=== PATIENT | female | born 1940 | race Caucasian/White ===

== ENCOUNTER 2020-07-09 18:53 | Emergency (ER) | payer MEDICARE, SELFPAY ==
--- NOTE | 2020-07-09 19:05 | PC.NURSE ---
pt seen leaving ed with family member before triage
== END 2020-07-09 19:05 | disposition left against medical advice (07) ==
LOC: ANHED 19:13
DX: Z53.21 Procedure and treatment not carried out due to patient leaving prior to being seen by health care provider (principal)
CPT/HCPCS: 99199

== ENCOUNTER 2021-08-09 18:36 | Inpatient (IN) | payer MEDICARE, SELFPAY ==
--- NOTE | ~2021-08-09 | US_ITS ---
EXAMINATION: US carotid duplex BI DATE: 08/11/2021 10:48 INDICATION: Embolic brain infarcts. Encephalopathy with altered mental status including syncope and c onfusion. TECHNIQUE: Grayscale, color Doppler, and pulsed Doppler images of the cervical carotid arteries were obtained. The degree of vessel stenosis is placed in one of the following categories: normal, <50%, 5 0-69%, >=70% but less than near-occlusion, near-occlusion, or total occlusion. Note that percent sten osis relative to normal distal artery lumen diameter is indirectly measured from velocity measurement s as described by Hector, et al. Radiology 2003; 229:340-346. COMPARISON: None. FINDINGS: RIGHT: The right common carotid artery (CCA) peak systolic velocity (PSV) is 141 cm/s. The right internal ca rotid artery (ICA) PSV is 93 cm/s. The right ICA end-diastolic velocity (EDV) is 22 cm/s. The right I CA/CCA PSV ratio is 0.7. Grayscale and color Doppler images yield an estimate of <50% diameter reduct ion from plaque in the ICA. The external carotid artery (ECA) PSV is 253 cm/s. The right vertebral ar chhaya is not visualized and may be occluded with absent flow void on prior brain MR the right vertebra l artery at the level of C1-C2. LEFT: The left CCA PSV is 97 cm/s. The left ICA PSV is 286 cm/s. The left ICA EDV is 50 cm/s. The left ICA/ CCA PSV ratio is 2.9. Grayscale and color Doppler images yield an estimate of >=70% (but less than ne ar occlusion) diameter reduction from plaque in the ICA. The ECA PSV is 160 cm/s. There is antegrade flow in the left vertebral artery. IMPRESSION: 1. <50% stenosis in the right internal carotid artery. 2. >=70% (but less than near occlusion) stenosis in the left internal carotid artery. 3. No patent right vertebral artery identified on color Doppler with no discernible flow void on prio r brain MR and this is likely occluded. Reviewed, dictated and finalized at location A. IMPRESSION: 1. <50% stenosis in the right internal carotid artery. 2. >=70% (but less than near occlusion) stenosis in the left internal carotid a rtery. 3. No patent right vertebral artery identified on color Doppler with no discern ible flow void on prior brain MR and this is likely occluded.
--- NOTE | ~2021-08-09 | XR_ITS ---
EXAMINATION: XR chest 1V portable INDICATION: Pneumonia, shortness of breath TECHNIQUE: Portable AP chest at 0927 hours COMPARISON: 08/09/2021 FINDINGS: The lungs are free of acute opacities. There is no pleural effusion or pneumothorax. The ca rdiomediastinal silhouette is normal. Cranial migration of the humeral heads with respect to the cipriano oids likely reflects chronic rotator cuff tears. IMPRESSION: 1. No acute cardiopulmonary abnormality. Reviewed, dictated and finalized at location A.
--- NOTE | ~2021-08-09 | XR_ITS ---
EXAMINATION: XR chest 1V DATE: 08/09/2021 19:53 INDICATION: Syncope. Confusion. TECHNIQUE: A single frontal view of the chest was obtained. COMPARISON: Chest 2 views 07/14/2012 FINDINGS: The chest demonstrates clear lungs without pneumonia, pleural effusion, or pneumothorax. Th e heart size is normal. IMPRESSION: 1. No acute cardiopulmonary disease. Reviewed, dictated and finalized at location A.
--- NOTE | ~2021-08-09 | CT_ITS ---
EXAMINATION: CT abdomen pelvis wo con DATE: 08/13/2021 13:40 INDICATION: Colon cancer. TECHNIQUE: Computed tomography (CT) of the abdomen and pelvis was performed without intravenous contr ast. Automated exposure control and iterative reconstruction technique were employed. The dose-length product was 165.23 mGy-cm. COMPARISON: None. FINDINGS: The visualized portions of the lung bases demonstrate emphysema. There are small airspace o pacities in basilar right lower lobe. No pleural effusion. The heart size is normal. There are fernandes ry artery calcifications. No pericardial effusion. The liver and gallbladder are normal. Calcificatio ns in the spleen are consistent with old granulomatous disease. The pancreas and adrenal glands are n ormal. There is cortical thinning of the kidneys. There is a 2.8 cm cyst in right kidney. There is di verticulosis of the colon without evidence of diverticulitis. There are no dilated loops of bowel. Th e appendix is normal. There are no pathologically enlarged lymph nodes. There is no free intraperiton eal fluid. There is severe lumbar spondylosis. IMPRESSION: 1. No evidence of metastatic disease. 2. Small airspace opacities in basilar right lower lobe, consistent with mild atelectasis versus infl ammation/infection. 3. Emphysema. Reviewed, dictated and finalized at location A. IMPRESSION: 1. No evidence of metastatic disease. 2. Small airspace opacities in basilar right lower lobe, consistent with mild a telectasis versus inflammation/infection. 3. Emphysema.
--- NOTE | ~2021-08-09 | MR_ITS ---
EXAMINATION: MR brain/brain stem wo con DATE: 08/10/2021 14:18 INDICATION: Altered mental status. TECHNIQUE: Magnetic resonance imaging (MRI) of the brain and brainstem was performed without intraven ous contrast. Sequences included sagittal and axial T1-weighted FSE, axial diffusion-weighted FS EPI, axial T2*-weighted GRE, axial T2-weighted FLAIR Propeller, and axial T2-weighted Propeller. Apparent diffusion coefficient (ADC) maps were created. COMPARISON: Head CT 08/09/2021 FINDINGS: There are scattered areas of nonspecific increased T2-weighted signal intensity in the cere bral white matter. There is an old infarct involving the right basal ganglia and internal capsule. Th ere is an old infarct in left frontal lobe and left insula. There is an old infarct in left temporal lobe. There is no intracranial hemorrhage, acute infarction, or abnormal intracranial mass lesion. Th ere is expected dilatation of body of right lateral ventricle. There is mucosal thickening in right m axillary sinus. There are likely changes of right ocular lens replacement surgery. The mastoid air ce lls are normal. IMPRESSION: 1. 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 2. Stable moderate nonspecific cerebral white matter disease, which likely represents chronic small v essel ischemic disease. Reviewed, dictated and finalized at location A. IMPRESSION: 1. 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 2. Stable moderate nonspecific cerebral white matter disease, which likely repr esents chronic small vessel ischemic disease.
--- NOTE | ~2021-08-09 | CT_ITS ---
EXAMINATION: CT brain wo con DATE: 08/09/2021 19:52 INDICATION: Confusion. Syncope. TECHNIQUE: Computed tomography (CT) of the head was performed without intravenous contrast. The mA wa s adjusted according to patient size. Iterative reconstruction technique was employed. The dose-lengt h product was 681.00 mGy-cm. COMPARISON: None FINDINGS: Old infarcts involving the right basal ganglia and internal capsule. There are scattered ar eas of low attenuation in the cerebral white matter. Old infarcts involving the left frontal lobe and left insula. There is no intracranial hemorrhage, acute infarction, or abnormal intracranial mass le samuel. There is mild ex vacuo dilatation of right lateral ventricle. There is mucosal thickening in th e paranasal sinuses. There are likely changes of right ocular lens replacement surgery. The mastoid a ir cells are normal. IMPRESSION: 1. 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 2. Moderate nonspecific cerebral white matter disease, which likely represents chronic small vessel i schemic disease. Reviewed, dictated and finalized at location A. IMPRESSION: 1. 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 2. Moderate nonspecific cerebral white matter disease, which likely represents chronic small vessel ischemic disease.
--- NOTE | ~2021-08-09 | US_ITS ---
EXAMINATION: US renal BI DATE: 08/10/2021 15:02 INDICATION: Acute kidney injury TECHNIQUE: Multiple grayscale and Doppler ultrasound images of the kidneys were obtained. COMPARISON: None. FINDINGS: The right kidney measures 7.7 x 5.1 x 3.5 cm and contains multiple cysts measuring up to 3. 3 cm. The left kidney measures 7.5 x 3.3 x 3.9 cm and contains a 9 mm cyst. The kidneys demonstrate n ormal parenchymal echogenicity. There is no hydronephrosis. The bladder is normal. IMPRESSION: 1. Bilateral renal atrophy without acute findings. Reviewed, dictated and finalized at location A.
[2021-08-09 18:42] VITALS: BP 149/68; PULSE 72; RESP 12; TEMP 36.8; O2SAT 96
--- NOTE | 2021-08-09 18:47 | ECG_ITS ---
Measurements Intervals [place] Rate: 70 P: 85 [place]: 204 QRS: 46 QRSD: 82 T: 115 QT: 393 QTc: 425 Interpretive Statements SINUS RHYTHM MINIMAL Q WAVES- ANTEROLAT/INF LEADS BORDERLINE ST-T WAVE ABNORMALITY- ANTEROLAT/HIGH LAT LEADS BASELINE ARTIFACT- I, II, III, AVR, AVL, AVF, V1-V6 BORDERLINE ECG Electronically Signed On 08-09-2021 20:33:09 CDT by Kraig Madison D.O.
[2021-08-09 18:58] LABS: Basophils Absolute Auto 0.1 K/mm3 (0.0-0.1); Basophils Percent Auto 0.9 % (0.2-1.2); Eosinophils Absolute Auto 0.2 K/mm3 (0-0.3); Eosinophils Percent Auto 2.5 % (0-4.4); Hematocrit 24.1 % (37.0-47.0); Immature Granulocyte Absolute 0.03 K/mm3 (0.00-0.031); Immature Granulocyte Percent A 0.3 % (0-0.5); Lymphocytes Absolute Auto 0.77 K/mm3 (0.9-3.2); Lymphocytes Percent Auto 8.7 % (18.3-44.2); Mean Corpuscular Hemoglobin 26.1 pg (26-34); Mean Corpuscular Volume 89.9 fl (80-100); Mean Platelet Volume 10.4 fl (7.4-10.4); Monocytes Absolute Auto 0.4 K/mm3 (0.1-0.6); Monocytes Percent Auto 4.8 % (2.6-8.5); Neutrophils Absolute Auto 7.4 K/mm3 (1.3-6.7); Neutrophils Percent Auto 82.8 % (45.5-73.1); Platelet Count Result 254 k/mm3 (150-375); Red Blood Count 2.68 M/mm3 (4.2-5.4); Red Cell Distribution Width 14.6 % (11.5-14.5); White Blood Count 8.9 K/mm3 (4.5-10.0)
[2021-08-09 19:19] LABS: Anion Gap 9 mmol/L (8-16); Blood Urea Nitrogen 33 mg/dL (7-17); Calcium 8.8 mg/dL (8.4-10.2); Carbon Dioxide 20 mmol/L (22-30); Chloride 113 mmol/L (98-107); Estimated CRCL calculation 19 ml/min; Estimated Glomerular Filt Rate 26; Glucose 140 mg/dL (65-110); Potassium 4.8 mmol/L (3.4-5.0); Sodium 142 mmol/L (137-145)
[2021-08-09 19:42] VITALS: PULSE 71
[2021-08-09 20:36] LABS: Prothrombin Time 12.8 Seconds (11.1-14.7)
[2021-08-09 20:37] LABS: Partial Thromboplastin Time 28.8 SECONDS (22.3-36.8)
[2021-08-09 20:40] LABS: Alanine Aminotransferase 10 U/L (4-35); Albumin Level 4.1 g/dL (3.5-5.1); Alkaline Phosphatase 85 U/L (38-126); Aspartate Amino Transferase 19 U/L (14-36); Bilirubin,Total 0.4 mg/dL (0.2-1.3)
[2021-08-09 20:45] LABS: Add Urine Microscopic? YES; Appearance Urine Cloudy (Clear); Bilirubin Urine Negative (Negative); Blood Urine 3+ (Negative); Budding Yeast Urine Present /hpf; Color Urine Yellow (Yellow); Glucose Urine UA Negative (Negative); Ketones Urine Negative (Negative); Leukocyte Esterase Ur 2+ LEU/UL (Negative); Mucus Urine Rare /lpf; Nitrate Urine Negative (Negative); Protein Urine 2+ mg/dL (Negative); RBC Urine >75 /hpf (0-2); Specific Grav Ur 1.018 (1.001-1.035); Urobilinogen Urine Negative mg/dL (<2.0); WBC Clumps Urine Present /HPF; WBC Urine >75 /hpf
--- NOTE | 2021-08-09 20:48 | ED.SYNCOPE ---
HPI - Syncope General Chief Complaint: Syncope Stated Complaint: syncopal episode Time Seen by Provider: 08/09/21 19:02 Source: patient and RN notes reviewed Mode of arrival: EMS Limitations: other (poor historian) History of Present Illness HPI narrative: This is a 81 year old female who presents for evaluation of syncopal episode. Her son is present at bedside. He states they were eating when patient slumped over in her chair and she was unresponsive for 10 minutes. Patient does not remember the event but she states she was feeling lightheaded. Patient has not been seen by a doctor in 2 years and she is not taking any medication. Over last 6 months, she has had decreased appetite and 30 pound weight loss. She denies nausea, vomiting, abdominal pain, chest pain or shortness of breath. She has a chronic cough. Her son states she states he thinks her stools have been dark. Patient denies bloody stools or dark stools. She is unsure of her last bowel movement. Related Data Home Medications Medication Instructions Recorded Confirmed No Home Medications 08/09/21 08/09/21 Allergies Allergy/AdvReac Type Severity Reaction Status Date / Time lidocaine Allergy Unknown Unknown Verified 08/09/21 18:46 procaine Allergy Unknown Unknown Verified 08/09/21 18:46 Review of Systems Review of Systems: All systems reviewed & are unremarkable except as noted in HPI and below PMFSH Past Medical History Medical History (Updated 08/10/21 @ 07:09 by Elba Cardenas MD) CHF (congestive heart failure) COPD (chronic obstructive pulmonary disease) Hypertension Surgical History Surgical History (Updated 08/09/21 @ 20:53 by Elba Cardenas MD) Hx of cataract surgery Family History Family History (Updated 08/09/21 @ 23:51 by Anjali Almonte RN) Mother Diabetes mellitus Social History Social History Smoking status: Former smoker Alcohol intake: unknown Substance use: never Spiritual care concerns: No Exam Const: General: no acute distress and alert Nutritional Appearance: thin Other: appears dirty, oriented to person and place. She does not know year HENMT: Head: normocephalic and atraumatic Face and sinus: face symmetric Mouth: Yes Normal oral and palatal mucosa present, Yes lip normal, Yes oropharynx normal and Yes moist mucous membranes Eyes: EOM: EOMs intact bilaterally Resp: Effort & Inspection: normal respiratory effort, not labored, no retractions, not tachypneic and no use of accessory muscles Auscultation: wheezes expiratory wheezes Cardio: Rate: regular rate Rhythm: regular rhythm Heart sounds: no murmurs GI: GI Palp: Yes Soft to palpation, No Tenderness to palpation present (GI) and No Guarding due to palpation present (GI) Auscultation: normal bowel sounds Rectal Exam: heme positive stool Skin: General skin exam: normal color Rashes: no rashes Neuro: General: moves all extremities, no meningeal signs, no focal motor deficits and CN's II-XI intact bilaterally Speech: normal speech Extrem: General: normal to inspection Psych: Mental Status: mental status grossly normal Affect: normal affect Course Reevaluation(s) Reevaluation #1: PAtient has been found to have HEIDE and anemia. She reports 30 pound weight loss. Will obs for evaluation . Vitals are stable. Date: 08/09/21 Time: 21:30 Consultations Consultation #1: I discussed case with Dr. Grossman. Patient found to be anemia, disheveled and malnourished. She had guiac positive. She accepts pt to medical service. Date: 08/09/21 Time: 21:23 Vital Signs Vital signs: Vital Signs Temperature 98.3 F 08/09/21 18:42 Pulse Rate 72 08/09/21 18:42 Respiratory Rate 12 08/09/21 18:42 Blood Pressure 149/68 H 08/09/21 18:42 Pulse Oximetry 96 08/09/21 18:42 Temperature 96.7 F L 08/10/21 06:00 Pulse Rate 76 08/10/21 06:00 Respiratory Rate 18 08/10/21 06:00 Blood Pressure 145/85 H 08/10/21 06:00
[2021-08-09 21:01] VITALS: BP 142/90; PULSE 72; RESP 17; O2SAT 96
--- NOTE | 2021-08-09 21:01 | PC.NURSE ---
PT ASKED X3 TO DO ORTHOSTATIC BP, PLEASANTLY REFUSED.
--- NOTE | 2021-08-09 21:21 | PM.IMHP ---
H&P: HPI History of Present Illness Date/Time: 08/09/21 21:21 Chief Complaint: Syncope Narrative: This is a 81-year-old female with past medical history significant for COPD/emphysema, tobacco dependence patient used to smoke 2-3 packs of cigarettes daily currently down to 2 cigarettes a day, hypertension. Patient was brought to the emergency room by her son after they were sitting in the dinner table when she slumped over according to son she was unresponsive for roughly 10 minutes did not witness any jerky movements patient is awake and alert however to has no recollection of events. She keeps repeating that she wants to go home and denies any complaints at this time she knows that she is in the emergency room but does not know why she is day and S only oriented to person and place. According to son he has noticed a progressive decline of the patient she unkempt and disheveled, as per son she has her oral intake has been poor has had roughly a 30 lb weight loss in the last 3-6 months. Most of the history has been obtained from patient's son as patient is not aware of her current health affairs. Preliminary workup was significant for a hemoglobin of 7 a hematocrit of 24, urinalysis with numerous wbc's. Chest x-ray was clear, a CT of the head showed old infarcts. Review of Systems Review of Systems: ROS unobtainable: Yes unobtainable due to medical condition (Dementia) [facility] Past Medical History Medical History (Updated 08/10/21 @ 01:05 by Deb Grossman MD) CHF (congestive heart failure) COPD (chronic obstructive pulmonary disease) Hypertension Surgical History Surgical History (Updated 08/09/21 @ 20:53 by Elba Cardenas MD) Hx of cataract surgery Family History Family History (Updated 08/09/21 @ 23:51 by Anjali Almonte RN) Mother Diabetes mellitus Social History Social History Smoking status: Former smoker Alcohol intake: unknown Substance use: never Spiritual care concerns: No Meds Home Medications and Allergies Home Medications Medication Instructions Recorded Confirmed Type No Home Medications 08/09/21 08/09/21 History Allergies Allergy/AdvReac Type Severity Reaction Status Date / Time lidocaine Allergy Unknown Unknown Verified 08/09/21 18:46 procaine Allergy Unknown Unknown Verified 08/09/21 18:46 Vital Signs Vital Signs - 24 hr 08/09/21 18:42 08/09/21 19:42 08/09/21 21:01 Temperature 98.3 F Pulse Rate 72 71 72 Respiratory Rate 12 17 Blood Pressure 149/68 H 142/90 H Pulse Oximetry 96 96 Exam Narrative: Patient is sitting in [facility] Const: General: no acute distress, alert, awake, Physically active, ill appearing chronically, poor hygiene and other (Unkempt, disheveled.) Nutritional Appearance: cachectic Orientation/consciousness: oriented to person and oriented to place HENMT: Head: normal to inspection, normocephalic and atraumatic Ears: hearing grossly normal bilaterally General nose exam: Normal external nose present Face and sinus: normal facial exam Mouth: Yes Normal oral and palatal mucosa present Eyes: General: appearance normal, both eyes and all related structures Alignment and Position: alignment normal Sclera: sclerae normal Pupils: Equal, round and reactive pupils present EOM: EOMs intact bilaterally Neck: Neck: normal visual inspection, full ROM, no lymphadenopathy, supple and no JVD Thyroid: thyroid normal Lymphatic: no lymphadenopathy noted Resp: Effort & Inspection: normal respiratory effort and able to speak in complete sentences Auscultation: clear to auscultation bilaterally, no crackles, no rales, no rhonchi and no wheezes Cardio: Jugular venous distension: no JVD Rate: regular rate Rhythm: regular rhythm Heart sounds: S1 normal heart sound present and S2 normal heart sound present GI: Inspection: scaphoid GI Palp: Yes Soft to palpation, No Tenderness to palpation present (GI), No Guarding due to palpation present (GI) and
[2021-08-09 21:28] LABS: Iron 19 ug/dL (37-170)
[2021-08-09 21:37] LABS: Percent Iron Saturation 5 % (20-50)
[2021-08-09 21:39] LABS: Folic Acid 10.6 ng/mL (2.76->20)
[2021-08-09 22:18] VITALS: BP 148/79; PULSE 71; RESP 21; O2SAT 100
[2021-08-09 23:01] VITALS: BP 142/98; PULSE 76; RESP 16; O2SAT 99
[2021-08-09 23:25] VITALS: BP 190/62; PULSE 76; RESP 18; TEMP 36.2; O2SAT 90
--- NOTE | 2021-08-09 23:27 | PC.NURSE ---
This patient, Bridget Alaniz, was admitted to 3 [facility] Surg Room 305-02 @23:25. Patient/family oriented to hospital policies and general routines including ID bracelet, bed and alarms, visiting hours, pain management, procedures, bathroom and other care routines, personal items, smoking policy, room service/diet, and visiting hours. Information on how to activate the Rapid Response Team has been discussed. Patient/Family are encouraged to report perceived risks to care and to ask questions if they do not understand what they are told or what they should do.
[2021-08-09 23:35] VITALS: BMI 16.0
[2021-08-09 23:43] LABS: Transferrin 283 mg/dL (206-381)
[2021-08-10] VITALS (15 sets, daily range): BP systolic 136–182; BP diastolic 48–87; PULSE 60–84; RESP 12–18; TEMP 35.9–36.9; O2SAT 91–100; BMI 16.0
--- NOTE | 2021-08-10 | ECHO_ITS ---
Patient Info Name: Bridget Alaniz Age: 81 years : 1940 Gender: Female Ht: 64 in Wt: 132 lbs BSA: 1.65 m2 HR: 78 bpm BP: 145 / 85 mmHg Technical Quality: Fair Exam Date: 08/10/2021 4:26 PM Exam Location: [facility] Pulmonary Exam Room: 305 Patient Status: Inpatient Admit Date: 08/10/2021 Staff Ordering Physician: Deb Grossman MD Senior Partner: Vale Montilla RDCS Attending Provider: Kaur Enriquez PA-C Referring Physician: Ngoc BATES; Exam Type: CA echo doppler color flow Study Info Indications - renal failure Complete two-dimensional, color flow and Doppler transthoracic echocardiogram is performed. Summary 1. Complete two-dimensional, color flow and Doppler transthoracic echocardiogram is performed. 2. Left ventricular chamber dimension is normal. 3. Left ventricular systolic function is normal, estimated at 45-50%. 4. The left ventricular diastolic function is grade I diastolic dysfunction. 5. E/e' 17 is elevated. 6. Left atrial chamber dimension is moderately enlarged. 7. There is mild aortic valve sclerosis. 8. The mitral valve has mildly calcified annulus and mildly thickened mitral valve leaflets. 9. There is mild to moderate mitral valve regurgitation. 10. There is trace tricuspid valve regurgitation. 11. Mild pulmonary hypertension, estimated pulmonary arterial systolic pressure is 45 mmHg. Left Ventricle E/e' 17 is elevated. Left ventricular chamber dimension is normal. Left ventricular systolic function is normal, estimated at 45-50%. The left ventricular diastolic function is grade I diastolic dysfunction. Right Ventricle Right ventricular chamber dimension is normal. Right ventricular systolic function is normal. Left Atria Left atrial chamber dimension is moderately enlarged. Right Atria Right atrial chamber dimension is normal. Aortic Valve The aortic valve is trileaflet. There is mild aortic valve sclerosis. There is no aortic valve stenosis. There is no aortic valve regurgitation. Pulmonic Valve There is no pulmonic regurgitation. Mitral Valve The mitral valve has mildly calcified annulus and mildly thickened mitral valve leaflets. There is no mitral valve stenosis. There is mild to moderate mitral valve regurgitation. Tricuspid Valve There is trace tricuspid valve regurgitation. Mild pulmonary hypertension, estimated pulmonary arterial systolic pressure is 45 mmHg. Pericardium/Pleural There is no pericardial effusion. Inferior Vena Cava Normal inferior vena cava with >50% collapse upon inspiration consistent with normal right atrial pressure, 5 mmHg. Aorta The aortic root size at the sinus of Valsalva is normal. Left Ventricular Outflow Tract Name Value Normal LVOT 2D LVOT Diameter 2.0 cm LVOT Doppler LVOT Peak Gradient 4 mmHg LVOT Mean Gradient 3 mmHg LVOT VTI 27 cm LVOT VTI/AV VTI Ratio 1.0 LVOT Stroke Volume 80 ml LVOT CO 15.2
[2021-08-10 00:10] LABS: Ferritin 7.39 ng/mL (11.1-264)
[2021-08-10] MEDS: PERMETHRIN 1% LIQUID 59 ML BOTTLE 1 APPLIC TOPICAL (03:19)
[2021-08-10] MEDS: SODIUM CHLORIDE 0.9% IV 1,000 ML 125 ML IV CONT (03:20)
[2021-08-10 06:36] LABS: Basophils Absolute Auto 0.1 K/mm3 (0.0-0.1); Basophils Percent Auto 0.8 % (0.2-1.2); Eosinophils Absolute Auto 0.1 K/mm3 (0-0.3); Eosinophils Percent Auto 1.9 % (0-4.4); Hematocrit 22.1 % (37.0-47.0); Immature Granulocyte Absolute 0.03 K/mm3 (0.00-0.031); Immature Granulocyte Percent A 0.4 % (0-0.5); Lymphocytes Absolute Auto 0.76 K/mm3 (0.9-3.2); Lymphocytes Percent Auto 10.2 % (18.3-44.2); Mean Corpuscular HGB Conc 29.4 g/dl (32-36); Mean Corpuscular Hemoglobin 25.9 pg (26-34); Mean Platelet Volume 10.8 fl (7.4-10.4); Monocytes Absolute Auto 0.4 K/mm3 (0.1-0.6); Monocytes Percent Auto 5.4 % (2.6-8.5); Neutrophils Absolute Auto 6.1 K/mm3 (1.3-6.7); Neutrophils Percent Auto 81.3 % (45.5-73.1); Platelet Count Result 244 k/mm3 (150-375); Red Blood Count 2.51 M/mm3 (4.2-5.4); Red Cell Distribution Width 14.5 % (11.5-14.5); White Blood Count 7.5 K/mm3 (4.5-10.0)
[2021-08-10 06:46] LABS: Alanine Aminotransferase 8 U/L (4-35); Albumin Level 3.8 g/dL (3.5-5.1); Alkaline Phosphatase 85 U/L (38-126); Anion Gap 10 mmol/L (8-16); Aspartate Amino Transferase 17 U/L (14-36); Bilirubin,Total 0.2 mg/dL (0.2-1.3); Blood Urea Nitrogen 32 mg/dL (7-17); Calcium 8.7 mg/dL (8.4-10.2); Carbon Dioxide 18 mmol/L (22-30); Chloride 113 mmol/L (98-107); Estimated CRCL calculation 14 ml/min; Estimated Glomerular Filt Rate 24; Glucose 97 mg/dL (65-110); Potassium 5.1 mmol/L (3.4-5.0); Sodium 141 mmol/L (137-145)
[2021-08-10 07:43] LABS: Hemoglobin 6.5 g/dL (12.0-15.0)
[2021-08-10 07:50] LABS: Platelet Estimate Adequate (Adequate)
[2021-08-10 07:54] LABS: Hypochromasia 2+ (NORMAL)
[2021-08-10 08:54] LABS: Thyroid Stimulating Hormone 0.639 uIU/mL (0.465-4.680)
[2021-08-10 10:28] LABS: Rapid Plasma Reagin Non-Reactive (NonReactive)
[2021-08-10] MEDS: MEMANTINE 10 MG TABLET PO ×2 (11:07→20:12)
[2021-08-10] MEDS: PANTOPRAZOLE SODIUM IV 40 MG VIAL IV PUSH (11:08)
--- NOTE | 2021-08-10 11:24 | WPDGICN ---
Assessment and Plan Assessment and plan (1) Anemia: Code(s): D64.9 - Anemia, unspecified Status: Acute Assessment and Plan: she has a normocytic anemia although her stool Hemoccult was positive, raising the suspicion of chronic gastrointestinal blood loss. I discussed EGD and colonoscopy with her. She will be prepped and scheduled for colonoscopy and EGD to be done tomorrow (2) Tobacco dependence: Code(s): F17.200 - Nicotine dependence, unspecified, uncomplicated Status: Acute Assessment and Plan: although she has COPD by history she does not appear short of breath at this time (3) Weight loss: Code(s): R63.4 - Abnormal weight loss Status: Acute Assessment and Plan: as mentioned, she denies any significant drop in her appetite or dysphagia but is aware that she has been losing weight, expresses concern about that. I told her that we would investigate that, 1st with endoscopy as discussed GI Consult Note Consult date/time: 08/10/21 11:24 HPI: Bridget Alaniz is a 81 year old female who was brought to the emergency room because she had slumped over when eating dinner last night and for about 10 minutes apparently was unresponsive. She has a history of COPD having smoked 2-3 packs of cigarettes per day for most of her life. She was found to be markedly anemic with a hemoglobin of 7. Is 6.5 today. She denies seen blood her stools are having black or tarry stools. She denies diarrhea or any change in bowel habits. She admits that she has had a poor appetite and is concerned that she has lost weight. Apparently she has lost about 30 lb in the last several months. She denies vomiting or dysphagia. She has a diagnosis of dementia but her history seems fairly consistent with what is in the chart. She thinks that she had a colonoscopy many many years ago at [facility] but I cannot find it in our system. From what I can tell she does not take any anti-inflammatory medications. Her INR is normal. No home prescription medications are listed. Review of Systems Review of Systems: All systems reviewed & are unremarkable except as noted in HPI and below PMFSH Past Medical History Medical History CHF (congestive heart failure) COPD (chronic obstructive pulmonary disease) Hypertension Surgical History Surgical History Hx of cataract surgery Family History Family History Mother Diabetes mellitus Social History Social History Smoking status: Former smoker Alcohol intake: unknown Substance use: never Spiritual care concerns: No Meds Home Medications and Allergies Home Medications Medication Instructions Recorded Confirmed Type No Home Medications 08/09/21 08/09/21 History Allergies Allergy/AdvReac Type Severity Reaction Status Date / Time lidocaine Allergy Unknown Unknown Verified 08/09/21 18:46 procaine Allergy Unknown Unknown Verified 08/09/21 18:46 Vital Signs Vital Signs - 24 hr 08/09/21 18:42 08/09/21 19:42 08/09/21 21:01 Temperature 36.8 C Pulse Rate 72 71 72 Respiratory Rate 12 17 Blood Pressure 149/68 H 142/90 H Pulse Oximetry 96 96 08/09/21 22:18 08/09/21 23:01 08/09/21 23:25 Temperature 36.2 C L Pulse Rate 71 76 76 Respiratory Rate 21 H 16 18 Blood Pressure 148/79 H 142/98 H 190/62 H Pulse Oximetry 100 99 90 08/10/21 04:00 08/10/21 06:00 Temperature 35.9 C L Pulse Rate 61 76 Respiratory Rate 18 Blood Pressure 145/85 H Pulse Oximetry 100 Exam Const: General: cooperative, no acute distress and poor hygiene Neck: Neck: normal visual inspection and no lymphadenopathy Resp: Auscultation: clear to auscultation bilaterally Cardio: Rhythm: regular rhythm GI: Inspect
--- NOTE | 2021-08-10 12:14 | PM.IMPN ---
Progress Note: A&P Assessment and Plan (1) Syncope: Code(s): R55 - Syncope and collapse Status: Acute Assessment and Plan: Unclear etiology Patient is sitting at the dinner table CT of the head reviewed. Evidence of vascular dementia PT/OT Aspiration precautions follow up dementia workup Neurology evaluation Follow up echocardiogram, brain MRI (2) Anemia: Code(s): D64.9 - Anemia, unspecified Status: Acute Assessment and Plan: Severe hypochromic microcytic anemia 2 units PRBCs Supplement IV iron GI consulted. Plan for EGD/colonoscopy (3) Weight loss: Code(s): R63.4 - Abnormal weight loss Status: Acute Assessment and Plan: This has been an ongoing issue GI evaluation Encourage oral intake. (4) Head lice infestation: Code(s): B85.0 - Pediculosis due to Pediculus humanus capitis Status: Acute Assessment and Plan: s/p permethrin application Social work evaluation for vulnerable adult (5) Dementia: Code(s): F03.90 - Unspecified dementia without behavioral disturbance Status: Acute Assessment and Plan: Dementia workup Neurology evaluation (6) Unintentional weight loss: Code(s): R63.4 - Abnormal weight loss Status: Acute (7) Iron deficiency anemia: Code(s): D50.9 - Iron deficiency anemia, unspecified Status: Acute (8) COPD with emphysema: Code(s): J43.9 - Emphysema, unspecified Status: Acute Additional Plan Currently no evidence of exacerbation. Stable Breathing treatments q.6 hours PRN Inhalers as needed. Time Spent With Patient Time with patient: 15 - 25 minutes Subjective Date/time seen: This is a 81-year-old female with past medical history significant for COPD/emphysema, tobacco dependence patient used to smoke 2-3 packs of cigarettes daily currently down to 2 cigarettes a day, hypertension, who was brought to the emergency room after she slumped at the dinner's table according to son . She was unresponsive for roughly 10 minutes did not witness any jerky movements patient is awake and alert however to has no recollection of events. Patient has experienced progressive cognitice decline; she is unkempt and disheveled, and has experienced a 30- lb weight loss over the last 3-6 months. On admission hemoglobin was 7, dropped to 6.5 this morning.2 units PRBCs were ordered. GI was consulted. Chest x-ray was clear, a CT of the head showed old infarcts. MRI is scheduled this afternoon. 08/10/21 12:14 S: Patient is very weak; no complaints. She ate her breakfast with appetite. She is weak and emaciated. Review of Systems Review of Systems: All systems reviewed & are unremarkable except as noted in HPI and below Constitutional: Constitutional: Reports fatigue, Reports lethargy and Reports weakness Eyes: Eyes: Reports no additional eye complaints ENT: Reports system reviewed and no additional complaints, except as documented and Denies dysphagia Cardiovascular: Cardiovascular: Reports no additional cardiovascular complaints Respiratory: Respiratory: Reports no additional respiratory complaints Gastrointestinal: Gastrointestinal: Reports no additional gastrointestinal complaints Genitourinary: Genitourinary: Reports no additional female genitourinary complaints Musculoskeletal: Musculoskeletal: Reports no additional musculoskeletal complaints Integumentary/Breasts: Skin/Breast: Reports pruritus Neurologic: Reports system reviewed and no additional complaints, except as documented Psychiatric: Psychiatric: Reports confusion Exam Const: General: no acute distress Other: Chronically-ill looking. HENMT: Mouth: Yes dry mucous membranes Eyes: Sclera: sclerae normal Pupils: Equal, round and reactive pupils present Neck: Neck: supple and no JVD Resp: Auscultation: diminished lung sounds Cardio: Rate: regular rate Rhythm: regular rhythm GI: Inspection: non-di
[2021-08-10] MEDS: LORATADINE 10 MG TABLET PO (12:55)
[2021-08-10] MEDS: FLUoxetine HCL 10 MG CAPSULE PO (12:55)
[2021-08-10] MEDS: polyethylene glycoL 3350 238 GM BOTTLE PO (16:30)
--- NOTE | 2021-08-10 16:50 | WPDNEURCNPN ---
Assessment and Plan Additional Plan her MRI has documented old infarcts involving the right basal ganglia right internal capsule left frontal lobe left insula left temporal lobe with nonspecific white matter disease, negative chest x-ray and routine labs with hemoglobin only 6.5 platelet count 244 INR 1.0 with a PTT 28.8, BUN 32 with creatinine of 2.0 initial potassium 5.1 with sodium 141 and UA abnormal. Obviously she has bihemispheric multiple old infarcts needs further evaluation cardiologically as well in addition to the carotid studies Consult date: 08/10/21 Time Seen: 10:00 HPI: Bridget Alaniz is a 81 year old female has been admitted to the hospital for the complaints of syncopal episode in addition to the ongoing history of 1. COPD with emphysema 2. Tobacco dependence 3. Hypertension. As per the information available from her son who brought her to the emergency room she slumped over and became unresponsive for 10 minutes with no observation of jerking movements of the upper and lower extremities and also no subsequent recall in the emergency room she wanted to go home kept repeating but her son has noted progressive decline in her general up keep with significant weight loss of 30 lb over the last 6 months and documented hemoglobin of 7 g in the emergency room with negative chest x-ray and negative CT scan of the head. Obviously she has ongoing history of congestive heart failure, COPD, hypertension, history of cataract extraction, being a former smoker with no alcohol intake history and also with no history of any medications at home Review of Systems Review of Systems: All systems reviewed & are unremarkable except as noted in HPI and below PMFSH Past Medical History Medical History CHF (congestive heart failure) COPD (chronic obstructive pulmonary disease) Hypertension Surgical History Surgical History Hx of cataract surgery Family History Family History Mother Diabetes mellitus Social History Social History Smoking status: Former smoker Alcohol intake: unknown Substance use: never Spiritual care concerns: No Meds Home Medications and Allergies Home Medications Medication Instructions Recorded Confirmed Type No Home Medications 08/09/21 08/09/21 History Allergies Allergy/AdvReac Type Severity Reaction Status Date / Time lidocaine Allergy Unknown Unknown Verified 08/09/21 18:46 procaine Allergy Unknown Unknown Verified 08/09/21 18:46 Vital Signs Vital Signs - 24 hr 08/09/21 18:42 08/09/21 19:42 08/09/21 21:01 Temperature 36.8 C Pulse Rate 72 71 72 Pulse Rate [At Rest After Therapy Session] Pulse Rate [At Rest Prior to Therapy Session] Respiratory Rate 12 17 Blood Pressure 149/68 H 142/90 H Pulse Oximetry 96 96 Pulse Oximetry [At Rest After Therapy Session] Pulse Oximetry [At Rest Prior to Therapy Session] 08/09/21 22:18 08/09/21 23:01 08/09/21 23:25 Temperature 36.2 C L Pulse Rate 71 76 76 Pulse Rate [At Rest After Therapy Session] Pulse Rate [At Rest Prior to Therapy Session] Respiratory Rate 21 H 16 18 Blood Pressure 148/79 H 142/98 H 190/62 H Pulse Oximetry 100 99 90 Pulse Oximetry [At Rest After Therapy Session] Pulse Oximetry [At Rest Prior to Therapy Session] 08/10/21 04:00 08/10/21 06:00 08/10/21 08:00 Temperature 35.9 C L Pulse Rate 61 76 60 Pulse Rate [At Rest After Therapy Session] Pulse Rate [At Rest Prior to Therapy Session] Respiratory Rate 18 Blood Pressure 145/85 H Pulse Oximetry 100 Pulse Oximetry [At Rest After Therapy Session] Pulse Oximetry [At Rest Prior to Therapy Session] 08/10/21 12:00 08/10/21 13:00 08/10/21 14:00 Temperature 36.3 C L Pulse Rate 71 77 Pulse Rate [At Rest After Therapy
[2021-08-10] MEDS: BISACODYL 5 MG TABLET EC 10 MG PO ×2 (16:55→20:12)
--- NOTE | 2021-08-10 18:41 | PC.NURSE ---
Pt became very agitated during blood transfusion unit 1 given 08/10/21 at 1525; pt frustrated at repeated BP/vitals being taken. Pt has known CHF in history. Pt BP continued to climb throughout unit. Spoke with Dr. Bustos who agreed it is not a transfusion reaction but more likely a fluid volume excess. ordered fluids to stop and to hold second unit of PRBCs. Called blood bank to notify that unit will not be given tonight.
--- NOTE | 2021-08-10 19:25 | PM.CNCAR ---
Assessment and Plan Assessment and plan (1) Syncope: Code(s): R55 - Syncope and collapse Status: Acute Assessment and Plan: Unknown etiology. On Telemetry which shows sinus rhythm without any significant pauses or arrhythmias. (2) Tobacco dependence: Code(s): F17.200 - Nicotine dependence, unspecified, uncomplicated Status: Acute Assessment and Plan: Counseled regarding smoking cessation. (3) Iron deficiency anemia: Code(s): D50.9 - Iron deficiency anemia, unspecified Status: Acute Assessment and Plan: GI following. Going for endoscopies tomorrow. (4) Systolic dysfunction: Code(s): I51.9 - Heart disease, unspecified Status: Acute Assessment and Plan: Mild dysfunction. She is not in CHF. Echo shows EF 45-50%, grade I diastolic dysfunction (E/e' 17), mod LAE, mild-mod MR, trace TR. 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 Neurology following. On telemetry. Carotid duplex ordered. Upon discharge she would need a 30 day event monitor to assess for silent PAF if telemetry is unrevealing. History of Present Illness History of Present Illness Consult date/time: 08/10/21 19:25 Reason for consult: History of bilateral stroke. 81 yr old woman was admitted through ER for syncopal episode. 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 Patient slumped over while at dinner table with her son and was unresponsive for 10 minutes. She does not recall this event. She is alert and oriented x 2 (she thought it was year 2018). States she can walk about 2 blocks. She has lost about 30 pounds in last 3-6 months. She smokes 2-3 cigarettes per day down from 2 ppd. Denies chest pain, sob, orthopnea, PND, edema, dizziness, palpitations. Thus far workup shows she has UTI, significant anemia of Hb 6.5, CKD with Cr 2.0/GFR 14, Hemoccult positive. MRI brain shows old infarcts in right basal ganglia, right internal capsule, left frontal lobe, left insular, left temporal lob; chronic small vessel ischemic disease. EKG shows Sinus rhythm, borderline ST-T wave in anterolat/high lat leads. Echo shows EF 45-50%, grade I diastolic dysfunction (E/e' 17), mod LAE, mild-mod MR, trace TR. Reason For Visit: Syncope; Anemia; Acute renal failure Review of Systems Review of Systems: All systems reviewed & are unremarkable except as noted in HPI and below Constitutional: Constitutional: Reports as per HPI, Denies chills and Denies fever(s) Cardiovascular: Cardiovascular: Reports as per HPI, Denies chest pain, Denies irregular heart rhythm and Denies leg edema Respiratory: Respiratory: Reports as per HPI and Denies dyspnea Gastrointestinal: Gastrointestinal: Reports as per HPI and Denies abdominal pain Genitourinary: Genitourinary: Reports as per HPI and Reports dysuria Musculoskeletal: Musculoskeletal: Reports as per HPI Neurologic: Reports as per HPI, Denies dizziness and Reports syncope PMFSH Past Medical History Medical History CHF (congestive heart failure) COPD (chronic obstructive pulmonary disease) Hypertension Surgical History Surgical History Hx of cataract surgery Family History Family History Mother Diabetes mellitus Social History Social History Smoking status: Former smoker Alcohol intake: unknown Substance use: never Spiritual care concerns: No Meds Home Medications and Allergies Home Medications Medication Instructions Recorded Confirmed Type No Home Medications 08/09/21 08/09/21 History Allergies Allergy/AdvReac Ty
[2021-08-10 19:52] LABS: Hematocrit 28.1 % (37.0-47.0); Hemoglobin 8.5 g/dL (12.0-15.0)
[2021-08-11] VITALS (12 sets, daily range): BP systolic 97–182; BP diastolic 60–97; PULSE 54–78; RESP 16–24; TEMP 36.3–37; O2SAT 98–100
[2021-08-11] MEDS: BISACODYL 5 MG TABLET EC 10 MG PO (03:50)
[2021-08-11 06:50] LABS: Hematocrit 26.6 % (37.0-47.0); Hemoglobin 8.2 g/dL (12.0-15.0); Mean Corpuscular HGB Conc 30.8 g/dl (32-36); Mean Corpuscular Hemoglobin 26.7 pg (26-34); Mean Corpuscular Volume 86.6 fl (80-100); Mean Platelet Volume 10.5 fl (7.4-10.4); Platelet Count Result 227 k/mm3 (150-375); Red Blood Count 3.07 M/mm3 (4.2-5.4); Red Cell Distribution Width 14.1 % (11.5-14.5); White Blood Count 6.6 K/mm3 (4.5-10.0)
[2021-08-11 07:10] LABS: Anion Gap 10 mmol/L (8-16); Blood Urea Nitrogen 25 mg/dL (7-17); Calcium 8.5 mg/dL (8.4-10.2); Carbon Dioxide 18 mmol/L (22-30); Chloride 111 mmol/L (98-107); Estimated CRCL calculation 15 ml/min; Estimated Glomerular Filt Rate 26; Glucose 83 mg/dL (65-110); Potassium 4.9 mmol/L (3.4-5.0); Sodium 139 mmol/L (137-145)
--- NOTE | 2021-08-11 08:20 | PM.PNCARD ---
Progress Note: A&P Assessment and Plan (1) Syncope: Code(s): R55 - Syncope and collapse Status: Acute Assessment and Plan: Unknown etiology. Possibly related to volume depletion, UTI and anemia. On Telemetry which shows sinus rhythm without any significant pauses or arrhythmias. (2) Tobacco dependence: Code(s): F17.200 - Nicotine dependence, unspecified, uncomplicated Status: Acute Assessment and Plan: Counseled regarding smoking cessation. (3) Iron deficiency anemia: Code(s): D50.9 - Iron deficiency anemia, unspecified Status: Acute Assessment and Plan: GI following. Going for endoscopies today. (4) Systolic dysfunction: Code(s): I51.9 - Heart disease, unspecified Status: Acute Assessment and Plan: Mild dysfunction. She is not in CHF. Echo shows EF 45-50%, grade I diastolic dysfunction (E/e' 17), mod LAE, mild-mod MR, trace TR. 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 Neurology following. On telemetry. Carotid duplex ordered. Upon discharge she would need a 30 day event monitor to assess for silent PAF if telemetry is unrevealing. Will continue to monitor her on telemetry to see if she develops PAF or pauses to account for syncope. Subjective Date/time seen: 08/11/21 08:20 Denies chest pain or sob, dizziness. Exam Const: General: cooperative, comfortable and no acute distress Resp: Auscultation: clear to auscultation bilaterally, no crackles, no rales, no rhonchi and no wheezes Cardio: Jugular venous distension: no JVD Rate: regular rate Rhythm: regular rhythm Heart sounds: no murmurs Peripheral pulses: dorsalis pedis present GI: GI Palp: No abdominal tenderness and Yes Soft to palpation Neuro: General: oriented to person and oriented to place Extrem: Right lower extremity: no edema Left lower extremity: no edema Objective Data Vital Signs Vital Signs: Vital Signs - 24 hr 08/10/21 12:00 08/10/21 13:00 08/10/21 14:00 Temperature 97.4 F L Pulse Rate 71 77 Pulse Rate [At Rest After Therapy Session] 84 Pulse Rate [At Rest Prior to Therapy Session] 81 Respiratory Rate 18 Blood Pressure 137/48 L Pulse Oximetry 100 Pulse Oximetry [At Rest After Therapy Session] 98 Pulse Oximetry [At Rest Prior to Therapy Session] 98 08/10/21 15:24 08/10/21 15:40 08/10/21 16:00 Temperature 97.4 F L 97.6 F Pulse Rate 77 72 77 Pulse Rate [At Rest After Therapy Session] Pulse Rate [At Rest Prior to Therapy Session] Respiratory Rate 16 16 Blood Pressure 137/48 L 136/78 Pulse Oximetry 100 99 Pulse Oximetry [At Rest After Therapy Session] Pulse Oximetry [At Rest Prior to Therapy Session] 08/10/21 16:40 08/10/21 17:40 08/10/21 20:00 Temperature 98.1 F 97.8 F Pulse Rate 73 78 66 Pulse Rate [At Rest After Therapy Session] Pulse Rate [At Rest Prior to Therapy Session] Respiratory Rate 18 16 Blood Pressure 140/76 156/76 H Pulse Oximetry 100 100 Pulse Oximetry [At Rest After Therapy Session] Pulse Oximetry [At Rest Prior to Therapy Session] 08/10/21 21:31 08/10/21 22:00 08/11/21 00:00 Temperature 98.5 F Pulse Rate 83 69 Pulse Rate [At Rest After Therapy Session] Pulse Rate [At Rest Prior to Therapy Session] Respiratory Rate 18 Blood Pressure 182/80 H 158/78 H Pulse Oximetry 91 Pulse Oximetry [At Rest After Therapy Session] Pulse Oximetry [At Rest Prior to Therapy Session] 08/11/21 04:34 08/11/21 06:00 Temperature 97.4 F L Pulse Rate 63 73 Pulse Rate [At Rest After Therapy Session] Pulse Rate [At Rest Prior to Therapy Session] Respiratory Rate 16 Blood Pressure 97/60 L Pulse Oximetry 99 Pulse Oximetry [At Rest After Therapy Session] Pulse Oximetry [At Rest Prior
--- NOTE | 2021-08-11 08:53 | PM.IMPN ---
Progress Note: A&P Assessment and Plan (1) Syncope: Code(s): R55 - Syncope and collapse Status: Acute Assessment and Plan: CT of the head reviewed. MRI shows -1. 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 2. Stable moderate nonspecific cerebral white matter disease, which likely represents chronic small vessel ischemic disease. (2) Anemia: Code(s): D64.9 - Anemia, unspecified Status: Acute Assessment and Plan: Severe hypochromic microcytic anemia sp 2 units PRBCs Supplement IV iron GI consulted. Colonscopy - colonic mass, hemorrhoids (3) Weight loss: Code(s): R63.4 - Abnormal weight loss Status: Acute Assessment and Plan: Chronic issue (4) Head lice infestation: Code(s): B85.0 - Pediculosis due to Pediculus humanus capitis Status: Acute Assessment and Plan: s/p permethrin application Social work evaluation for vulnerable adult (5) Dementia: Code(s): F03.90 - Unspecified dementia without behavioral disturbance Status: Acute Assessment and Plan: Dementia workup Neurology evaluation (6) Unintentional weight loss: Code(s): R63.4 - Abnormal weight loss Status: Acute (7) Iron deficiency anemia: Code(s): D50.9 - Iron deficiency anemia, unspecified Status: Acute (8) COPD with emphysema: Code(s): J43.9 - Emphysema, unspecified Status: Acute Assessment and Plan: Chronic and stable no exacerbation Subjective Date/time seen: 08/11/21 08:53 Review of Systems Review of Systems: All systems reviewed & are unremarkable except as noted in HPI and below Exam Const: General: alert, poor hygiene and other (Unkempt, disheveled.) Nutritional Appearance: cachectic Orientation/consciousness: oriented to person, oriented to place and confusion Other: Chronically-ill looking. Resp: Effort & Inspection: normal respiratory effort Auscultation: clear to auscultation bilaterally Cardio: Jugular venous distension: no JVD Rate: regular rate Rhythm: regular rhythm Heart sounds: S1 normal heart sound present and S2 normal heart sound present GI: Inspection: non-distended Skin: General skin exam: no rashes or lesions noted and pallor Rashes: no rashes Wounds: no wounds Hair: other (Lices) Neuro: General: oriented to person, oriented to place, CN's II-XI intact bilaterally, confusion and Unable to assess gait Cranial nerves: Yes CN's II-XII intact bilaterally and Yes Equal, round and reactive pupils present Cognition (Neuro): abnormal cognition (Dementia) Speech: normal speech Gait exam (Neuro): Unable to assess gait Motor exam (neuro): 5/5 motor strength present throughout Extrem: General: normal to inspection Psych: Appearance: disheveled Affect: Blunted affect present Attitude: cooperative Objective Data Vital Signs Vital Signs: Vital Signs - 24 hr 08/10/21 12:00 08/10/21 13:00 08/10/21 14:00 Temperature 36.3 C L Pulse Rate 71 77 Pulse Rate [At Rest After Therapy Session] 84 Pulse Rate [At Rest Prior to Therapy Session] 81 Respiratory Rate 18 Blood Pressure 137/48 L Pulse Oximetry 100 Pulse Oximetry [At Rest After Therapy Session] 98 Pulse Oximetry [At Rest Prior to Therapy Session] 98 08/10/21 15:24 08/10/21 15:40 08/10/21 16:00 Temperature 36.3 C L 36.4 C Pulse Rate 77 72 77 Pulse Rate [At Rest After Therapy Session] Pulse Rate [At Rest Prior to Therapy Session] Respiratory Rate 16 16 Blood Pressure 137/48 L 136/78 Pulse Oximetry 100 99 Pulse Oximetry [At Rest After Therapy Session] Pulse Oximetry [At Rest Prior to Therapy Session] 08/10/21 16:40 08/10/21 17:40 08/10/21 20:00 Temperature 36.7 C 36.6 C Pulse Rate 73 78 66 Pulse Rate [At Rest After Therapy Session] Pulse Rate [At Rest Prior to Therapy Session] Respirator
[2021-08-11] MEDS: PANTOPRAZOLE SODIUM IV 40 MG VIAL IV PUSH (09:36)
[2021-08-11] MEDS: DIPHENHYDRAMINE 1%/ZINC 0.1% CREAM 30 GM TUBE 1 APPLIC TOPICAL (09:50)
--- NOTE | 2021-08-11 11:55 | PCDIET ---
Calorie Count for 08/10 Breakfast 08/10-No amounts reported on ticket. Lunch 08/10-approx. 300 kcals. Dinner 08/10-no amounts reported on ticket-clear liquid ordered. Patient is currently NPO for EGD/colonoscopy today. RD will continue to monitor calorie count daily.
[2021-08-11 12:18] LABS: Glucose Point of Care 76 mg/dl (65-105)
--- NOTE | 2021-08-11 12:52 | WPDANESEPPF ---
Anes - Initial Pre Proc Eval Procedure: Operation Date: 08/11/21 12:30 Proposed Procedures p Esophagogastroduodenoscopy & Colonoscopy - Ottoniel Werner MD Date/Time: 08/11/21 12:52 Surgeon: Kaur Enriquez PA-C Pre Op Diagnosis: Syncope; Anemia; Acute renal failure Patient Data Age: 81 Gender: F Height: 1.63 m Weight: 42.4 kg Last Vital Signs Temp 97.4 F L 08/11/21 06:00 Pulse 68 08/11/21 12:50 Resp 24 H 08/11/21 12:50 BP 182/97 H 08/11/21 12:50 Pulse Ox 100 08/11/21 12:50 Allergies Allergy/AdvReac Type Severity Reaction Status Date / Time lidocaine Allergy Unknown Unknown Verified 08/11/21 12:47 procaine Allergy Unknown Unknown Verified 08/11/21 12:47 Home Medications Medication Instructions Recorded Confirmed Type No Home Medications 08/09/21 08/09/21 History Laboratory Tests 08/09/21 08/10/21 08/11/21 23:41 19:46 06:24 WBC 6.6 K/mm3 K/mm3 (4.5-10.0) RBC 3.07 M/mm3 L M/mm3 (4.2-5.4) Hgb 8.5 g/dL L g/dL 8.2 g/dL L g/dL (12.0-15.0) (12.0-15.0) Hct 28.1 % L % 26.6 % L % (37.0-47.0) (37.0-47.0) MCV 86.6 fl fl (80-100) MCH 26.7 pg pg (26-34) MCHC 30.8 g/dl L g/dl (32-36) RDW 14.1 % % (11.5-14.5) Plt Count 227 k/mm3 k/mm3 (150-375) MPV 10.5 fl H fl (7.4-10.4) Sodium Potassium Chloride Carbon Dioxide Anion Gap BUN Creatinine Estim Creat Clear Calc Estimated GFR Glucose POC Capillary Glucose Calcium Blood Type AB Positive Antibody Screen Negative Crossmatch See Detail 08/11/21 08/11/21 06:24 12:15 WBC RBC Hgb Hct MCV MCH MCHC RDW Plt Count MPV Sodium 139 mmol/L mmol/L (137-145) Potassium 4.9 mmol/L mmol/L (3.4-5.0) Chloride 111 mmol/L H mmol/L (98-107) Carbon Dioxide 18 mmol/L L mmol/L (22-30) Anion Gap 10 mmol/L mmol/L (8-16) BUN 25 mg/dL H mg/dL (7-17) Creatinine 1.90 mg/dL H mg/dL (0.7-1.0) Estim Creat Clear Calc 15 ml/min ml/min Estimated GFR 26 L (59 - ) Glucose 83 mg/dL mg/dL (65-110) POC Capillary Glucose 76 mg/dl mg/dl (65-105) Calcium 8.5 mg/dL mg/dL (8.4-10.2) Blood Type Antibody Screen Crossmatch Patient hx anesthesia problems: none Family hx anesthesia problems: none Results Review: All pre-operative results and documents have been reviewed as part of the pre-operative evaluation. [facility] Past Medical History Medical History CHF (congestive heart failure) COPD (chronic obstructive pulmonary disease) Hypertension Surgical History Surgical History Hx of cataract surgery Family History Family History Mother Diabetes mellitus Social History Social History Smoking status: Former smoker Alcohol intake: unknown Substance use: never Spiritual care concerns: No Anes - Eval Final PreProcedure Day of Procedure 08/11/21 12:52 Patient weight: normal Heart: regular rate and rhythm Lungs: rales Airway: Mallampati scale class II Neurological: alert and oriented Last oral intake: >/= 8 hours ASA classification: IV Emergent: no Anesthetic plan: proceed Anesthesia type and monitoring: general GIVS and standard monitoring Results Review: All pre-operative results and documents have been reviewed as part of the pre-operative evaluation. Informed Consent: The patient's anesthetic plan and its attendant risks and benefits we
[2021-08-11] MEDS: LACTATED RINGERS 1,000 ML 150 ML IV CONT (13:21)
--- NOTE | 2021-08-11 13:37 | PC.NURSE ---
On 08/11/21, the student, [Radha Cruz ], provided care and completed [facility] documentation on this patient. I have reviewed the student's documentation and agree with the findings.
--- NOTE | 2021-08-11 14:09 | SUR.OPER ---
pt recovered in room 3. see post op charting.
[2021-08-11] MEDS: LORATADINE 10 MG TABLET PO (14:55)
[2021-08-11] MEDS: FLUoxetine HCL 10 MG CAPSULE PO (14:55)
[2021-08-11] MEDS: MEMANTINE 10 MG TABLET PO ×2 (14:55→20:38)
--- NOTE | 2021-08-11 18:00 | PC.NURSE ---
Patient confused and keeps pulling telemetry off along with 30 days event monitor.
[2021-08-12] VITALS (9 sets, daily range): BP systolic 131–162; BP diastolic 56–76; PULSE 59–82; RESP 16–24; TEMP 36.6–36.8; O2SAT 96–100
[2021-08-12 06:22] LABS: Hematocrit 26.6 % (37.0-47.0); Mean Corpuscular HGB Conc 30.1 g/dl (32-36); Mean Corpuscular Hemoglobin 26.3 pg (26-34); Mean Corpuscular Volume 87.5 fl (80-100); Mean Platelet Volume 10.7 fl (7.4-10.4); Platelet Count Result 226 k/mm3 (150-375); Red Blood Count 3.04 M/mm3 (4.2-5.4); Red Cell Distribution Width 14.3 % (11.5-14.5); White Blood Count 6.7 K/mm3 (4.5-10.0)
[2021-08-12 06:44] LABS: Anion Gap 8 mmol/L (8-16); Blood Urea Nitrogen 21 mg/dL (7-17); Calcium 8.2 mg/dL (8.4-10.2); Carbon Dioxide 18 mmol/L (22-30); Chloride 113 mmol/L (98-107); Estimated CRCL calculation 14 ml/min; Estimated Glomerular Filt Rate 24; Glucose 85 mg/dL (65-110); Potassium 4.5 mmol/L (3.4-5.0); Sodium 139 mmol/L (137-145)
[2021-08-12 07:20] LABS: Cholesterol 128 mg/dL (0-200); HDL Direct 40 mg/dL; Triglycerides 63 mg/dL (<150)
--- NOTE | 2021-08-12 07:28 | PM.IMPN ---
Progress Note: A&P Assessment and Plan (1) Colonic mass: Code(s): K63.89 - Other specified diseases of intestine Status: Acute Assessment and Plan: Colonic mass, likely causing severe weight loss and anemia Oncology evaluation. 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 Currently no evidence of exacerbation. Stable Breathing treatments q.6 hours PRN Inhalers as needed. (3) Acute kidney failure: Code(s): N17.9 - Acute kidney failure, unspecified Status: Acute Assessment and Plan: Creatinine has fluctuated around 1.9-2 since admission. Baseline kidney function is unknown. The given potential her low weight, this likely represents pretty advanced kidney disease. Nephrology evaluation in morning. (4) Syncope: Code(s): R55 - Syncope and collapse Status: Acute Assessment and Plan: Patient was evaluated by Neurology. CT of the head reviewed. MRI shows old infarcts involving the right basal ganglia, right internal capsule, left frontal lobe, left insula, and left temporal load. Stable moderate nonspecific cerebral white matter disease, which likely represents: Next small vessel ischemic disease. Cardiology consult was done. Loop recorder for 1 months. (5) Head lice infestation: Code(s): B85.0 - Pediculosis due to Pediculus humanus capitis Status: Acute Assessment and Plan: Head lice infestation. His status was permethrin application. Social work evaluation for Adult protective Services (6) Unintentional weight loss: Code(s): R63.4 - Abnormal weight loss Status: Acute Assessment and Plan: An intentional weight loss likely related to colonic mass. Follow up Oncology. Encourage oral intake. Patient is on a 3 day calorie count. No evidence of dysphagia. (7) Dementia: Code(s): F03.90 - Unspecified dementia without behavioral disturbance Status: Acute Assessment and Plan: A dementia likely vascular dementia given ischemic findings on the MRI. (8) Urinary tract infection: Code(s): N39.0 - Urinary tract infection, site not specified Status: Acute Assessment and Plan: Consider Rocephin. (9) Anemia: Code(s): D64.9 - Anemia, unspecified Status: Acute Assessment and Plan: Status post 2 units PRBCs. Continue IV iron supplementation. GI consulted. Colonoscopy reveals colonic mass and hemorrhoids. (10) History of stroke: Code(s): Z86.73 - Personal history of transient ischemic attack (TIA), and cerebral infarction without residual deficits Status: Acute (11) Weight loss: Code(s): R63.4 - Abnormal weight loss Status: Acute Assessment and Plan: As above. (12) Tobacco dependence: Code(s): F17.200 - Nicotine dependence, unspecified, uncomplicated Status: Acute Assessment and Plan: Nicotine patch replacement as requested per patient Subjective Date/time seen: 08/12/21 07:28 S: Patient is examined at the [facility]. She feels very tired and very weak. Review of Systems Review of Systems: All systems reviewed & are unremarkable except as noted in HPI and below ROS unobtainable: Yes unobtainable due to medical condition (Dementia) Constitutional: Constitutional: Reports fatigue, Reports lethargy and Reports weakness Eyes: Eyes: Reports no additional eye complaints ENT: Reports system reviewed and no additional complaints, except as documented and Denies dysphagia Cardiovascular: Cardiovascular: Reports no additional cardiovascular complaints Respiratory: Respiratory: Reports no additional respiratory complaints Gastrointestinal: Gastrointestinal: Reports no additional gastrointestinal complaints and Denies dysphagia Genitourinary: Genitourinary: Reports no additional female genitouri
[2021-08-12 07:30] LABS: LDL Cholesterol Direct 69 mg/dL
--- NOTE | 2021-08-12 07:51 | PM.PNCARD ---
Progress Note: A&P Assessment and Plan (1) Syncope: Code(s): R55 - Syncope and collapse Status: Acute Assessment and Plan: Unknown etiology. Possibly related to volume depletion, UTI and anemia. On Telemetry which shows sinus rhythm without any significant pauses or arrhythmias. (2) Tobacco dependence: Code(s): F17.200 - Nicotine dependence, unspecified, uncomplicated Status: Acute Assessment and Plan: Counseled regarding smoking cessation. (3) Iron deficiency anemia: Code(s): D50.9 - Iron deficiency anemia, unspecified Status: Acute Assessment and Plan: GI following. Endoscopies showed AVM with evidence of bleeding that was ablated; colonic mass. (4) Systolic dysfunction: Code(s): I51.9 - Heart disease, unspecified Status: Acute Assessment and Plan: Mild dysfunction. She is not in CHF. Echo shows EF 45-50%, grade I diastolic dysfunction (E/e' 17), mod LAE, mild-mod MR, trace TR. 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 Neurology following. On telemetry without evidence of arrhythmias or pauses. Carotid duplex shows <50% stenosis of right ICA, >70% stenosis of left ICA; likely occluded right vertebral artery. Obtain Lipid panel. Start statin. She should be on aspirin if OK by GI. Upon discharge she would need a 30 day event monitor to assess for silent PAF if telemetry is unrevealing. Subjective Date/time seen: 08/12/21 07:51 Denies chest pain, sob, or dizziness. Reports lower back pain this morning. Exam Const: General: cooperative, comfortable and no acute distress Resp: Auscultation: clear to auscultation bilaterally, no crackles, no rales, no rhonchi and no wheezes Cardio: Jugular venous distension: no JVD Rate: regular rate Rhythm: regular rhythm Heart sounds: no murmurs Peripheral pulses: dorsalis pedis present GI: GI Palp: No abdominal tenderness and Yes Soft to palpation Neuro: General: oriented to person and oriented to place Extrem: Right lower extremity: no edema Left lower extremity: no edema Objective Data Vital Signs Vital Signs: Vital Signs - 24 hr 08/11/21 08:00 08/11/21 12:00 08/11/21 12:50 Temperature Pulse Rate 65 78 68 Respiratory Rate 24 H Blood Pressure 182/97 H Pulse Oximetry 100 08/11/21 13:19 08/11/21 13:29 08/11/21 13:39 Temperature Pulse Rate 54 L 60 68 Respiratory Rate 24 H 22 H 22 H Blood Pressure 138/65 136/83 159/69 H Pulse Oximetry 100 100 99 08/11/21 16:00 08/11/21 20:00 08/11/21 20:54 Temperature 98.6 F Pulse Rate 61 74 76 Respiratory Rate 20 Blood Pressure 106/60 Pulse Oximetry 98 08/12/21 00:00 08/12/21 04:00 08/12/21 06:00 Temperature 97.8 F Pulse Rate 59 L 64 71 Respiratory Rate 16 Blood Pressure 149/56 H Pulse Oximetry 100 Intake/Output Intake/Output: Intake & Output 08/09/21 08/10/21 08/11/21 08/12/21 23:59 23:59 23:59 23:59 Intake Total 50 1370 640 240 Output Total 0 Balance 50 1370 640 240 Meds/Results Medications: Active Medications Generic Name Dose Route Start Last Admin Trade Name Freq PRN Reason Stop Dose Admin Fluoxetine HCl 10 mg 08/10/21 09:00 08/11/21 14:55 Fluoxetine Hcl 10 Mg Capsule PO 10 mg QAM KIP Administration Ceftriaxone Sodium/Dextrose 1 gm in 50 mls @ 100 mls/hr 08/12/21 08:00 Rocephin 1 Gm/D5w 50 Ml IVPB Q24H KIP Loratadine 10 mg 08/10/21 12:00 08/11/21 14:55 Loratadine 10 Mg Tablet PO 10 mg QAM KIP Administration Memantine 10 mg 08/10/21 09:00 08/11/21 20:38 Memantine 10 Mg Tablet PO 10 mg Q12HR KIP Administration Ondansetron HCl 4 mg 08/09/21 21:47 Ondansetron Inj 4 Mg/2 Ml Vial IV PUSH Q4H PRN Nausea Pantoprazole Sodium 40 mg 08/10
[2021-08-12] MEDS: MEMANTINE 10 MG TABLET PO ×2 (10:37→21:11)
[2021-08-12] MEDS: FLUoxetine HCL 10 MG CAPSULE PO (10:38)
[2021-08-12] MEDS: PANTOPRAZOLE SODIUM IV 40 MG VIAL IV PUSH (10:38)
[2021-08-12] MEDS: PRAVASTATIN SODIUM 5 MG TABLET PO (10:38)
[2021-08-12] MEDS: DIPHENHYDRAMINE 1%/ZINC 0.1% CREAM 30 GM TUBE 1 APPLIC TOPICAL (10:38)
[2021-08-12] MEDS: LORATADINE 10 MG TABLET PO (10:38)
--- NOTE | 2021-08-12 11:26 | WPDNEUROPN ---
Progress Note: A&P Additional Plan considering the territorial stroke particularly possibility of the posterior circulation she would have been started on the anticoagulation therapy but looking at the multiple other comorbid conditions she will benefit only with the aspirin and Plavix because of the risk involvement in the anticoagulation therapy she has already undergone GI studies if any further question arises please do not hesitate to contact me Subjective Date/time seen: 08/12/21 11:26 81 years old lady with documented abnormal MRI that is involvement of the right basal ganglia right internal capsule left frontal lobe insula and left temporal lobe in addition to nonspecific white matter disease, documented to have nonreactive RPR, slightly abnormal UA with abnormal creatinine of 2.0 on BMP, normal coagulation profile and anemia. her carotid studies documented less than 50% stenosis in the right ICA and more than 70% but less than near occlusion on the left ICA and no identification of the right vertebral artery. The renal ultrasound has documented bilateral renal atrophy without acute findings Review of Systems Review of Systems: All systems reviewed & are unremarkable except as noted in HPI and below Exam Narrative: examination revealed her to awake alert cooperative in no obvious acute distress head normocephalic ear nose throat examination normal neck is supple with no meningeal signs heart regular lungs with rhonchi crepitation abdomen is soft neurological is she is awake alert follow the instructions fairly well Misty the speech versus unable to ambulate but difficulties in recent and remote recall Objective Data Vital Signs Vital Signs: Vital Signs - 24 hr 08/11/21 12:00 08/11/21 12:50 08/11/21 13:19 Temperature Pulse Rate 78 68 54 L Respiratory Rate 24 H 24 H Blood Pressure 182/97 H 138/65 Pulse Oximetry 100 100 08/11/21 13:29 08/11/21 13:39 08/11/21 16:00 Temperature Pulse Rate 60 68 61 Respiratory Rate 22 H 22 H Blood Pressure 136/83 159/69 H Pulse Oximetry 100 99 08/11/21 20:00 08/11/21 20:54 08/12/21 00:00 Temperature 37.0 C Pulse Rate 74 76 59 L Respiratory Rate 20 Blood Pressure 106/60 Pulse Oximetry 98 08/12/21 04:00 08/12/21 06:00 08/12/21 09:43 Temperature 36.6 C Pulse Rate 64 71 Respiratory Rate 16 Blood Pressure 149/56 H Pulse Oximetry 100 96 Intake/Output Intake/Output: Intake & Output 08/09/21 08/10/21 08/11/21 08/12/21 23:59 23:59 23:59 23:59 Intake Total 50 1370 640 240 Output Total 0 Balance 50 1370 640 240 Meds/Results Medications: Active Medications Generic Name Dose Route Start Last Admin Trade Name Freq PRN Reason Stop Dose Admin Fluoxetine HCl 10 mg 08/10/21 09:00 08/12/21 10:38 Fluoxetine Hcl 10 Mg Capsule PO 10 mg QAM KIP Administration Ceftriaxone Sodium/Dextrose 1 gm in 50 mls @ 100 mls/hr 08/12/21 08:00 08/12/21 10:37 Rocephin 1 Gm/D5w 50 Ml IVPB 100 mls/hr Q24H KIP Administration Loratadine 10 mg 08/10/21 12:00 08/12/21 10:38 Loratadine 10 Mg Tablet PO 10 mg QAM KIP Administration Memantine 10 mg 08/10/21 09:00 08/12/21 10:37 Memantine 10 Mg Tablet PO 10 mg Q12HR KIP Administration Ondansetron HCl 4 mg 08/09/21 21:47 Ondansetron Inj 4 Mg/2 Ml Vial IV PUSH Q4H PRN Nausea Pantoprazole Sodium 40 mg 08/10/21 09:00 08/12/21 10:38 Pantoprazole Sodium Iv 40 Mg Vial IV PUSH 40 mg QAM KIP Administration Pravastatin Sodium 5 mg 08/12/21 09:00 08/12/21 10:38 Pravastatin Sodium 5 Mg Tablet PO 5 mg DAILY KIP Administration Zinc Acetate/Diphenhydramine 1 applic 08/10/21 10:58 08/12/21 10:38 Diphenhydramine 1%/Zinc 0.1% Cream 30 Gm Tube TOPICAL 1 applic QID PRN Administration Itching Radiology Results: ITS Impressions Head CT 08/09/21 19:53 IMPRESSION: 1. Old infarcts involving the right basal ganglia, right internal
--- NOTE | 2021-08-12 11:57 | PC.NURSE ---
On 08/12/21, the student, Miryam Huerta, provided care and completed [facility] documentation on this patient. I have reviewed the student's documentation and agree with the findings.
--- NOTE | 2021-08-12 13:15 | WPDANESPN ---
Anes - Prog Note Post-Op Date/Time: 08/12/21 13:15 Cardiovascular status: normal Respiratory status: normal Airway patency: baseline Mental status: baseline Post-Op hydration status: normal Vital Signs: Last Vital Signs Temp 36.6 C 08/12/21 06:00 Pulse 71 08/12/21 06:00 Resp 16 08/12/21 06:00 BP 149/56 H 08/12/21 06:00 Pulse Ox 96 08/12/21 09:43 Pain Score (VAS): 0 I/O: Intake & Output 08/11/21 08/12/21 08/12/21 23:59 07:59 15:59 Intake Total 240 240 50 Balance 240 240 50 Laboratory Tests 08/12/21 05:38 08/12/21 05:38 08/12/21 08/12/21 08/12/21 05:35 05:38 05:38 WBC 6.7 RBC 3.04 L Hgb 8.0 L Hct 26.6 L MCV 87.5 MCH 26.3 MCHC 30.1 L RDW 14.3 Plt Count 226 MPV 10.7 H Sodium 139 Potassium 4.5 Chloride 113 H Carbon Dioxide 18 L Anion Gap 8 BUN 21 H Creatinine 2.00 H Estim Creat Clear Calc 14 Estimated GFR 24 L Glucose 85 Calcium 8.2 L Triglycerides 63 Cholesterol 128 LDL Cholesterol Direct 69 HDL Direct 40 Microbiology 08/09/21 20:34 Urine Clean Catch Urine Culture - Final Proteus Mirabilis Post-procedural complaints: none Patient Feedback: Patient satisfied with anesthetic care.
--- NOTE | 2021-08-12 13:35 | PCNFU ---
Nutrition Follow-Up Complete: Inadequate Oral Intake as related to syncope as evidenced by poor po intake reported. Goal: Adequate Intake of at least 75% of meals/supplements Patient has limited progress towards goal. We will continue current goal. Pt current nutrition is Regular with Ensure compact BID. Last recorded weight is 42.4 kg, no new weight to report. Bowel Motility:+BM reported 08/11 Labs Reviewed:Cr 2.0, BUN 21, Hct 26.6, Hgb 8.0 Meds Noted:Prozac, Rocephin, Protonix, Claritin, Namenda. Additional Notes: Nutrition follow up. Patient remains on isolation at this time. She does live with her son. Oral Intake has been poor. Talked with nursing today, over the weekend patient had been fed. Limited intakes reported. EGD showing colon mass. Recommend to continue regular diet with ensure compact BID providing an additional 220 kcals and 9 gms protein. Monitoring: RD will monitor every 3 days.
[2021-08-13] VITALS (8 sets, daily range): BP systolic 106–162; BP diastolic 53–82; PULSE 59–87; RESP 17–18; TEMP 36.7–37.1; O2SAT 97–99
[2021-08-13 06:35] LABS: Hematocrit 27.5 % (37.0-47.0); Hemoglobin 8.2 g/dL (12.0-15.0); Mean Corpuscular HGB Conc 29.8 g/dl (32-36); Mean Corpuscular Hemoglobin 26.4 pg (26-34); Mean Corpuscular Volume 88.4 fl (80-100); Mean Platelet Volume 10.6 fl (7.4-10.4); Platelet Count Result 215 k/mm3 (150-375); Red Blood Count 3.11 M/mm3 (4.2-5.4); Red Cell Distribution Width 14.3 % (11.5-14.5); White Blood Count 7.6 K/mm3 (4.5-10.0)
[2021-08-13 06:44] LABS: Anion Gap 7 mmol/L (8-16); Blood Urea Nitrogen 22 mg/dL (7-17); Calcium 8.3 mg/dL (8.4-10.2); Carbon Dioxide 20 mmol/L (22-30); Chloride 113 mmol/L (98-107); Estimated CRCL calculation 13 ml/min; Estimated Glomerular Filt Rate 23; Glucose 84 mg/dL (65-110); Potassium 4.4 mmol/L (3.4-5.0); Sodium 140 mmol/L (137-145)
--- NOTE | 2021-08-13 08:01 | PM.PNCARD ---
Progress Note: A&P Assessment and Plan (1) Syncope: Code(s): R55 - Syncope and collapse Status: Acute Assessment and Plan: Unknown etiology. Possibly related to volume depletion, UTI and anemia. On Telemetry which shows sinus rhythm without any significant pauses or arrhythmias. (2) Tobacco dependence: Code(s): F17.200 - Nicotine dependence, unspecified, uncomplicated Status: Acute Assessment and Plan: Counseled regarding smoking cessation. (3) Iron deficiency anemia: Code(s): D50.9 - Iron deficiency anemia, unspecified Status: Acute Assessment and Plan: GI following. Endoscopies showed AVM with evidence of bleeding that was ablated; colonic mass. (4) Systolic dysfunction: Code(s): I51.9 - Heart disease, unspecified Status: Acute Assessment and Plan: Mild dysfunction. She is not in CHF. Echo shows EF 45-50%, grade I diastolic dysfunction (E/e' 17), mod LAE, mild-mod MR, trace TR. 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 Neurology following. On telemetry without evidence of arrhythmias or pauses. Carotid duplex shows <50% stenosis of right ICA, >70% stenosis of left ICA; likely occluded right vertebral artery. Discuss with patient regarding carotid stenosis and consideration for near future carotid stenting or CEA when stable, and she is not interested. On Pravastatin 5 mg daily. She should be on antiplatelet agent if OK by GI. Upon discharge she would need a 30 day event monitor to assess for silent PAF. Instructions have been given on how to wear it. Subjective Date/time seen: 08/13/21 08:01 Denies chest pain or sob. She reports feeling tired. Exam Const: General: cooperative, comfortable and no acute distress Resp: Auscultation: clear to auscultation bilaterally, no crackles, no rales, no rhonchi and no wheezes Cardio: Jugular venous distension: no JVD Rate: regular rate Rhythm: regular rhythm Heart sounds: no murmurs Peripheral pulses: dorsalis pedis present GI: GI Palp: No abdominal tenderness and Yes Soft to palpation Neuro: General: oriented to person and oriented to place Extrem: Right lower extremity: no edema Left lower extremity: no edema Objective Data Vital Signs Vital Signs: Vital Signs - 24 hr 08/12/21 09:43 08/12/21 12:00 08/12/21 14:00 Temperature 98 F Pulse Rate 72 82 Respiratory Rate 24 H Blood Pressure 162/64 H Pulse Oximetry 96 99 08/12/21 16:00 08/12/21 21:33 08/13/21 00:00 Temperature 98.2 F Pulse Rate 75 72 75 Respiratory Rate 18 Blood Pressure 131/76 Pulse Oximetry 99 08/13/21 04:00 08/13/21 05:29 Temperature 98.0 F Pulse Rate 59 L 63 Respiratory Rate 18 Blood Pressure 106/53 L Pulse Oximetry 97 Intake/Output Intake/Output: Intake & Output 08/10/21 08/11/21 08/12/21 08/13/21 23:59 23:59 23:59 23:59 Intake Total 1370 640 660 250 Output Total 0 Balance 1370 640 660 250 Meds/Results Medications: Active Medications Generic Name Dose Route Start Last Admin Trade Name Freq PRN Reason Stop Dose Admin Fluoxetine HCl 10 mg 08/10/21 09:00 08/12/21 10:38 Fluoxetine Hcl 10 Mg Capsule PO 10 mg QAM KIP Administration Ceftriaxone Sodium/Dextrose 1 gm in 50 mls @ 100 mls/hr 08/12/21 08:00 08/12/21 11:07 Rocephin 1 Gm/D5w 50 Ml IVPB Infused Q24H KIP Infusion Loratadine 10 mg 08/10/21 12:00 08/12/21 10:38 Loratadine 10 Mg Tablet PO 10 mg QAM KIP Administration Memantine 10 mg 08/10/21 09:00 08/12/21 21:11 Memantine 10 Mg Tablet PO 10 mg Q12HR KIP Administration Ondansetron HCl 4 mg 08/09/21 21:47 Ondansetron Inj 4 Mg/2 Ml Vial IV PUSH Q4H PRN Nausea Pantoprazole Sodium 40 mg 08/10/21 09:00 08/12/21 10:38 Fredi
--- NOTE | 2021-08-13 09:54 | PM.IMPN ---
Progress Note: A&P Assessment and Plan (1) Colonic mass: Code(s): K63.89 - Other specified diseases of intestine Status: Acute Assessment and Plan: Colonic mass, likely causing severe weight loss and anemia Oncology evaluation done; CT scan of the abdomen and pelvis with IV contrast requested. Given poor kidney function nephrology was consulted. Patient will be started on IV fluid at 1 cc/kg per hour [address] scan during and [address] scan for the prevention of contrast induced nephropathy. 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 Currently no evidence of exacerbation. Stable Breathing treatments q.6 hours PRN Inhalers as needed. (3) Acute kidney failure: Code(s): N17.9 - Acute kidney failure, unspecified Status: Acute Assessment and Plan: Creatinine has fluctuated around 1.9-2 since admission. Baseline kidney function is unknown. The given potential her low weight, this likely represents pretty advanced kidney disease. Nephrology evaluation in morning in anticipation of contrast imaging studies. (4) Syncope: Code(s): R55 - Syncope and collapse Status: Acute Assessment and Plan: Patient was evaluated by Neurology. CT of the head reviewed. MRI shows old infarcts involving the right basal ganglia, right internal capsule, left frontal lobe, left insula, and left temporal load. Stable moderate nonspecific cerebral white matter disease, which likely represents: Next small vessel ischemic disease. Cardiology consult was done. Loop recorder for 1 months. (5) Head lice infestation: Code(s): B85.0 - Pediculosis due to Pediculus humanus capitis Status: Acute Assessment and Plan: Head lice infestation. His status was permethrin application. Social work evaluation for Adult protective Services (6) Unintentional weight loss: Code(s): R63.4 - Abnormal weight loss Status: Acute Assessment and Plan: An intentional weight loss likely related to colonic mass. Follow up Oncology. Encourage oral intake. Patient is on a 3 day calorie count. No evidence of dysphagia. (7) Dementia: Code(s): F03.90 - Unspecified dementia without behavioral disturbance Status: Acute Assessment and Plan: A dementia likely vascular dementia given ischemic findings on the MRI. (8) Urinary tract infection: Code(s): N39.0 - Urinary tract infection, site not specified Status: Acute Assessment and Plan: Continue Rocephin. (9) Anemia: Code(s): D64.9 - Anemia, unspecified Status: Acute Assessment and Plan: Status post 2 units PRBCs. Continue IV iron supplementation. GI consulted. Colonoscopy reveals colonic mass and hemorrhoids. CT abdomen with IV contrast after clearance by nephrology and IV hydration. (10) History of stroke: Code(s): Z86.73 - Personal history of transient ischemic attack (TIA), and cerebral infarction without residual deficits Status: Acute (11) Weight loss: Code(s): R63.4 - Abnormal weight loss Status: Acute Assessment and Plan: As above. (12) Tobacco dependence: Code(s): F17.200 - Nicotine dependence, unspecified, uncomplicated Status: Acute Assessment and Plan: Nicotine patch replacement as requested per patient Additional Plan Currently no evidence of exacerbation. Stable Breathing treatments q.6 hours PRN Inhalers as needed. Subjective Date/time seen: 08/13/21 09:54 S: Patient was examined at the bedside she feels extremely weak. She was educated about the diagnosis of bowel mass. Review of Systems Review of Systems: All systems reviewed & are unremarkable except as noted in HPI and below ROS unobtainable: Yes unobtainable due to medical condition (Dementia) Constitu
[2021-08-13] MEDS: MEMANTINE 10 MG TABLET PO ×2 (10:07→20:04)
[2021-08-13] MEDS: PRAVASTATIN SODIUM 5 MG TABLET PO (10:07)
[2021-08-13] MEDS: LORATADINE 10 MG TABLET PO (10:07)
[2021-08-13] MEDS: FLUoxetine HCL 10 MG CAPSULE PO (10:07)
[2021-08-13] MEDS: PANTOPRAZOLE SODIUM IV 40 MG VIAL IV PUSH (10:08)
[2021-08-13 11:44] LABS: Methylmalonic Acid 317 nmol/L (87-318)
--- NOTE | 2021-08-13 12:31 | PDONCCN ---
HPI - Date of Consult Date/Time: 08/13/21 12:31 Requesting Physician: Kaur Enriquez PA-C Primary Care Provider: UNDERGROUND CONDUIT INSTALLER PHYSICIAN - Consult Narrative Reason for consult: Likely colon cancer Narrative: Bridget Alaniz is a 81 year old female with history of COPD, CHF and hypertension who lives with her brought into the ER as patient was found unresponsive. According to the patient who seems to be confused he was having some weakness and shakiness. She was also having some nausea without any diarrhea and constipation. She has lost about 30 lb weight in last 6 months duration. She denies any previous history of malignancy. She denies any melena hematochezia. Head CT showed old infarction and chronic small-vessel ischemic disease. Labs showed hemoglobin of 6.5. Patient received 1 unit of packed red blood cells. Colonoscopy was performed on August 11 that showed large size internal hemorrhoid along with nonobstructing mass in the sigmoid colon with biopsies were taken. Pathology is pending. EGD showed AVM in the body of the stomach with stigmata of bleeding. Lesion was cauterized. Review of Systems - Review of Systems All systems reviewed & are unremarkable except as noted in HPI and bel - Neurologic Reports system reviewed and no additional complaints, except as documented, Reports confusion, Reports syncope, Reports weakness PMFSH Medical History: Medical History (Last Reviewed 08/10/21 @ 16:52 by Nicolás Fried MD) CHF (congestive heart failure) COPD (chronic obstructive pulmonary disease) Hypertension Surgical History: Surgical History (Last Reviewed 08/10/21 @ 16:52 by Nicolás Fried MD) Hx of cataract surgery Family History: Family History (Last Reviewed 08/10/21 @ 16:52 by Nicolás Fried MD) Mother Diabetes mellitus - Social History Social History: Social History (Last Reviewed 08/10/21 @ 16:52 by Nicolás Fried MD) Alcohol Use: Alcohol intake: unknown Substance Use: Substance use: never Others: Spiritual care concerns: No Smoking Status: Smoking status: Former smoker Meds Home Medications Medication Instructions Recorded Confirmed Type No Home Medications 08/09/21 08/09/21 History Allergies Allergy/AdvReac Type Severity Reaction Status Date / Time lidocaine Allergy Unknown Unknown Verified 08/11/21 12:47 procaine Allergy Unknown Unknown Verified 08/11/21 12:47 Results - Labs CBC & Chem 7: 08/13/21 05:50 08/13/21 05:50 Labs: Short CBC 08/13/21 Range/Units 05:50 WBC 7.6 (4.5-10.0) K/mm3 Hgb 8.2 L (12.0-15.0) g/dL Hct 27.5 L (37.0-47.0) % Plt Count 215 (150-375) k/mm3 BMP 08/13/21 05:50 Sodium 140 Potassium 4.4 Chloride 113 H Carbon Dioxide 20 L BUN 22 H Creatinine 2.10 H Glucose 84 Calcium 8.3 L Assessment and Plan - Additional Plan Sigmoid colon mass status post colonoscopy and biopsy. Pathology is pending. Patient is a 81-year-old female with history of CHF COPD and hypertension. She seems to be confused. She was brought into the hospital status post syncopal episode and fall. CT head finding noted. Labs showed anemia with hemoglobin of 6.5. Patient received blood transfusion. Colonoscopy showed mid sigmoid colon mass. EGD showed AVM in the stomach and lesions were cauterized. I will order CT abdomen and pelvis and CEA level. I have provided her my office information and instructed her to come to the office with the son to discuss pathology report and imaging studies finding. Iron deficiency anemia. Labs noted. I will start her on IV iron infusion. Exam - Vital Signs Vital Signs - 24 hr 08/12/21 14:00 08/12/21 16:00 08/12/21 21:33 Temperature 36.6 C 36.8 C Pulse Rate 82 75 72 Respiratory Rate 24 H 18 Blood Pressure 162/64 H 131/76 Pulse Oximetry 99 99 08/13/21 00:00 08/13/21 04:00 08/13/21 05:29 Temperature 36.7 C P
[2021-08-13] MEDS: IRON SUCROSE COMPLEX 500 MG in SODIUM CHLORIDE 0.9% IV 250 ML 78.57 MG IVPB (15:44)
[2021-08-13] MEDS: amLODIPine BESYLATE 2.5 MG TABLET PO (18:42)
[2021-08-14] VITALS (8 sets, daily range): BP systolic 144–158; BP diastolic 58–89; PULSE 64–92; RESP 18–20; TEMP 35.8–37.3; O2SAT 94–99
[2021-08-14 06:11] LABS: Hematocrit 28.8 % (37.0-47.0); Hemoglobin 8.7 g/dL (12.0-15.0); Mean Corpuscular HGB Conc 30.2 g/dl (32-36); Mean Corpuscular Hemoglobin 26.8 pg (26-34); Mean Corpuscular Volume 88.6 fl (80-100); Mean Platelet Volume 10.7 fl (7.4-10.4); Platelet Count Result 215 k/mm3 (150-375); Red Blood Count 3.25 M/mm3 (4.2-5.4); Red Cell Distribution Width 14.5 % (11.5-14.5); White Blood Count 8.9 K/mm3 (4.5-10.0)
[2021-08-14 06:26] LABS: Anion Gap 7 mmol/L (8-16); Blood Urea Nitrogen 23 mg/dL (7-17); Calcium 8.5 mg/dL (8.4-10.2); Carbon Dioxide 23 mmol/L (22-30); Chloride 112 mmol/L (98-107); Estimated CRCL calculation 15 ml/min; Estimated Glomerular Filt Rate 26; Glucose 91 mg/dL (65-110); Potassium 4.5 mmol/L (3.4-5.0); Sodium 142 mmol/L (137-145)
[2021-08-14 06:30] LABS: Red Blood Cell Folate >1000 ng/mL RBC (>280)
--- NOTE | 2021-08-14 07:31 | WPDGIPROGNO ---
Progress Note: A&P Assessment and Plan (1) Colonic mass: Code(s): K63.89 - Other specified diseases of intestine Status: Acute Assessment and Plan: pathology revealed this to be an adenocarcinoma as suspected. It was small. One has been tattooed to facilitate surgical resection. I have put in a consult for surgery, Dr. Ramirez. (2) Anemia: Code(s): D64.9 - Anemia, unspecified Status: Acute Assessment and Plan: The patient has been seth by who is managing her anemia. She was getting an iron infusion. I can see that has not been completed and apparently her IV came out. Time Spent With Patient Time with patient: 15 - 25 minutes Subjective Date/time seen: 08/14/21 07:31 she is lying comfortably in bed. She denies complaints. I explained to her that the polypoid lesion was in fact a cancer as suspected. I told her that we will get a surgeon to see her. Review of Systems Review of Systems: All systems reviewed & are unremarkable except as noted in HPI and below Exam Const: General: cooperative, no acute distress and poor hygiene Neck: Neck: normal visual inspection and no lymphadenopathy Resp: Auscultation: clear to auscultation bilaterally Cardio: Rhythm: regular rhythm GI: Inspection: normal to inspection GI Palp: No abdominal tenderness Auscultation: normal bowel sounds Objective Data Vital Signs Vital Signs: Vital Signs - 24 hr 08/13/21 08:00 08/13/21 12:00 08/13/21 14:00 Temperature 36.8 C Pulse Rate 63 69 74 Respiratory Rate 18 Blood Pressure 162/73 H Pulse Oximetry 99 08/13/21 20:00 08/13/21 21:59 08/14/21 00:00 Temperature 37.1 C Pulse Rate 87 85 64 Respiratory Rate 17 Blood Pressure 129/82 Pulse Oximetry 98 08/14/21 04:00 08/14/21 05:13 Temperature 36.4 C L Pulse Rate 70 65 Respiratory Rate 18 Blood Pressure 144/89 H Pulse Oximetry 94 Intake/Output Intake/Output: Intake & Output 08/11/21 08/12/21 08/13/21 08/14/21 23:59 23:59 23:59 23:59 Intake Total 640 660 487 150 Balance 640 660 487 150 Meds/Results Medications: Active Medications Generic Name Dose Route Start Last Admin Trade Name Freq PRN Reason Stop Dose Admin Amlodipine Besylate 2.5 mg 08/13/21 16:30 08/13/21 18:42 Amlodipine Besylate 2.5 Mg Tablet PO 2.5 mg QAM KIP Administration Fluoxetine HCl 10 mg 08/10/21 09:00 08/13/21 10:07 Fluoxetine Hcl 10 Mg Capsule PO 10 mg QAM KIP Administration Ceftriaxone Sodium/Dextrose 1 gm in 50 mls @ 100 mls/hr 08/12/21 08:00 08/13/21 10:37 Rocephin 1 Gm/D5w 50 Ml IVPB Infused Q24H KIP Infusion Iron Sucrose 500 mg/ Sodium 275 mls @ 78.571 mls/hr 08/13/21 12:00 08/13/21 18:37 Chloride IVPB 08/16/21 11:59 Infused DAILY KIP Infusion Sodium Chloride 1,000 mls @ 50 mls/hr 08/13/21 13:45 Normal Saline Iv IV CONT .Q20H KIP Loratadine 10 mg 08/10/21 12:00 08/13/21 10:07 Loratadine 10 Mg Tablet PO 10 mg QAM KIP Administration Memantine 10 mg 08/10/21 09:00 08/13/21 20:04 Memantine 10 Mg Tablet PO 10 mg Q12HR KIP Administration Ondansetron HCl 4 mg 08/09/21 21:47 Ondansetron Inj 4 Mg/2 Ml Vial IV PUSH Q4H PRN Nausea Pantoprazole Sodium 40 mg 08/10/21 09:00 08/13/21 10:08 Pantoprazole Sodium Iv 40 Mg Vial IV PUSH 40 mg QAM KIP Administration Pravastatin Sodium 5 mg 08/12/21 09:00 08/13/21 10:07 Pravastatin Sodium 5 Mg Tablet PO 5 mg DAILY KIP Administration Zinc Acetate/Diphenhydramine 1 applic 08/10/21 10:58 08/12/21 10:38 Diphenhydramine 1%/Zinc 0.1% Cream 30 Gm Tube TOPICAL 1 applic QID PRN Administration Itching Radiology Results: ITS Impressions Head CT 08/09/21 19:53 IMPRESSION: 1. 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 2. Moderate nonspecific cerebral white matter disease, which li
--- NOTE | 2021-08-14 07:36 | PM.PNCARD ---
Progress Note: A&P Assessment and Plan (1) Syncope: Code(s): R55 - Syncope and collapse Status: Acute Assessment and Plan: Unknown etiology. Possibly related to volume depletion, UTI and anemia. On Telemetry which shows sinus rhythm without any significant pauses or arrhythmias. (2) Tobacco dependence: Code(s): F17.200 - Nicotine dependence, unspecified, uncomplicated Status: Acute Assessment and Plan: Counseled regarding smoking cessation. (3) Iron deficiency anemia: Code(s): D50.9 - Iron deficiency anemia, unspecified Status: Acute Assessment and Plan: GI following. Endoscopies showed AVM with evidence of bleeding that was ablated; colonic mass. (4) Systolic dysfunction: Code(s): I51.9 - Heart disease, unspecified Status: Acute Assessment and Plan: Mild dysfunction. She is not in CHF. Echo shows EF 45-50%, grade I diastolic dysfunction (E/e' 17), mod LAE, mild-mod MR, trace TR. 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 Neurology following. On telemetry without evidence of arrhythmias or pauses. Carotid duplex shows <50% stenosis of right ICA, >70% stenosis of left ICA; likely occluded right vertebral artery. Discuss with patient regarding carotid stenosis and consideration for near future carotid stenting or CEA when stable, and she is not interested. On Pravastatin 5 mg daily. She should be on antiplatelet agent if OK by GI. Upon discharge she would need a 30 day event monitor to assess for silent PAF. Instructions have been given on how to wear it. Upon discharge, have her f/u with me in 2 weeks. Will sign off. Please call with any questions. (6) Hypertension: Code(s): I10 - Essential (primary) hypertension Status: Inactive Assessment and Plan: BP fluctuates from 106-160 systolic. She was started on Amlodipine 2.5 mg daily on 08/13/21 by hospitalist. Subjective Date/time seen: 08/14/21 07:36 Reports feeling tired. No chest pain, sob, or dizziness. Exam Const: General: cooperative, comfortable and no acute distress Resp: Auscultation: clear to auscultation bilaterally, no crackles, no rales, no rhonchi and no wheezes Cardio: Jugular venous distension: no JVD Rate: regular rate Rhythm: regular rhythm Heart sounds: no murmurs Peripheral pulses: dorsalis pedis present GI: GI Palp: No abdominal tenderness and Yes Soft to palpation Neuro: General: oriented to person and oriented to place Extrem: Right lower extremity: no edema Left lower extremity: no edema Objective Data Vital Signs Vital Signs: Vital Signs - 24 hr 08/13/21 08:00 08/13/21 12:00 08/13/21 14:00 Temperature 98.3 F Pulse Rate 63 69 74 Respiratory Rate 18 Blood Pressure 162/73 H Pulse Oximetry 99 08/13/21 20:00 08/13/21 21:59 08/14/21 00:00 Temperature 98.7 F Pulse Rate 87 85 64 Respiratory Rate 17 Blood Pressure 129/82 Pulse Oximetry 98 08/14/21 04:00 08/14/21 05:13 Temperature 97.5 F L Pulse Rate 70 65 Respiratory Rate 18 Blood Pressure 144/89 H Pulse Oximetry 94 Intake/Output Intake/Output: Intake & Output 08/11/21 08/12/21 08/13/21 08/14/21 23:59 23:59 23:59 23:59 Intake Total 640 660 487 150 Balance 640 660 487 150 Meds/Results Medications: Active Medications Generic Name Dose Route Start Last Admin Trade Name Freq PRN Reason Stop Dose Admin Amlodipine Besylate 2.5 mg 08/13/21 16:30 08/13/21 18:42 Amlodipine Besylate 2.5 Mg Tablet PO 2.5 mg QAM KIP Administration Fluoxetine HCl 10 mg 08/10/21 09:00 08/13/21 10:07 Fluoxetine Hcl 10 Mg Capsule PO 10 mg QAM KIP Administration Ceftriaxone Sodium/Dextrose 1 gm in 50 mls @ 100 mls/hr 08/12/21 08:00 08/13/21 10:37 Rocephin 1 Gm/
[2021-08-14] MEDS: LORATADINE 10 MG TABLET PO (10:24)
[2021-08-14] MEDS: PRAVASTATIN SODIUM 5 MG TABLET PO (10:24)
[2021-08-14] MEDS: FLUoxetine HCL 10 MG CAPSULE PO (10:25)
[2021-08-14] MEDS: amLODIPine BESYLATE 2.5 MG TABLET PO (10:25)
[2021-08-14] MEDS: MEMANTINE 10 MG TABLET PO ×2 (10:25→21:40)
--- NOTE | 2021-08-14 11:00 | PCNFU ---
Nutrition Follow-Up Complete: Inadequate Oral Intake as related to syncope as evidenced by poor po intake reported. Goal: Adequate Intake of at least 75% of meals/supplements Patient is progressing towards goal. We will continue current goal. Pt current nutrition is Regular with Ensure Enlive TID. Last recorded weight is 42.4 kg, no new weight to report. Bowel Motility:+BM reported 08/11 Labs Reviewed:Cr 1.9,GFR 26,BUN 23,Hgb 8.7,Hct 28.8 Meds Noted:Protonix, Rocephin,Claritin,Prozac, Namenda Additional Notes: Nutrition follow up. Patient has been tolerating a regular diet with Ensure Enlive TID. Multiple consults ordered. Per MD, pathology revealed adenocarcinoma as suspected. Skin: rash on bilateral arms. Agree with current diet orders. Monitoring: will monitor every 5 days.
--- NOTE | 2021-08-14 12:43 | PM.CNGS ---
Assessment and Plan Assessment and plan (1) Colonic mass: Onset Date: ~07/2021 Code(s): K63.89 - Other specified diseases of intestine Status: Acute Assessment and Plan: This is the main reason that I was asked to see the patient. Pathology Returns today showing a adenocarcinoma of the colon from the 5 biopsies at the 22 cm alexys from the anal opening done by colonoscopy on 08/11/[address] Werner. I agree with the plans outlined by Dr. Dodson yesterday in his consultation see Quote below: Sigmoid colon mass status post colonoscopy and biopsy. Patient is a 81-year-old female with history of CHF, emphysema/ COPD and hypertension. She seems to be confused. She was brought into the hospital status post syncopal episode and fall. CT head findings noted. Labs showed anemia with hemoglobin of 6.5. Patient received blood transfusion. Colonoscopy showed mid sigmoid colon mass. EGD showed AVM in the stomach and lesions were cauterized. (These were reported to have stigmata of bleeding). I have provided her my office information and instructed her to come to the office with the son to discuss pathology report and imaging studies finding . I will try to call her son today and explain these findings with her permission. (She did give me permission to discuss these things with him) if she decides she wants to have surgery after she talks to Dr. Dodson I would be glad to see her in the office in follow-up and we could make plans for a sigmoid resection. Pathology returned today after I saw her and shows that she does have colorectal carcinoma in the mass at the mid sigmoid. (2) History of stroke: Onset Date: Unknown Code(s): Z86.73 - Personal history of transient ischemic attack (TIA), and cerebral infarction without residual deficits Status: Acute Assessment and Plan: Patient has evidence of previous thrombotic stroke/clots in the basal of the brain on both CT of the head and MRI. (3) Weight loss: Onset Date: ~06/2021 Code(s): R63.4 - Abnormal weight loss Status: Acute Assessment and Plan: Patient admits to weight loss when asked. Did not have an explanation of this. States that she has not had a good appetite. (4) Anemia: Code(s): D64.9 - Anemia, unspecified Status: Acute Assessment and Plan: Probably secondary to bleeding from the gastric AVMs. Although the patient has a sigmoid colon tumor there did not appear to be any bleeding diathesis at that site according to Dr. Werner note. Patient also may have iron deficiency. (5) Acute kidney failure: Code(s): N17.9 - Acute kidney failure, unspecified Status: Acute (6) Syncope: Code(s): R55 - Syncope and collapse Status: Acute Assessment and Plan: This was the main reason for admission. See history and physical for details. further workup involving cardiology and neurology has been completed. (7) Tobacco dependence: Code(s): F17.200 - Nicotine dependence, unspecified, uncomplicated Status: Acute Assessment and Plan: Patient apparently down to 2 cigarettes per day. (8) Dementia: Code(s): F03.90 - Unspecified dementia without behavioral disturbance Status: Acute Assessment and Plan: Patient is significantly confused. She thought that she was in a hospital right across the street from her home (which is in [place], [place] ). Also stated that she did not receive breakfast did not receive supper last night and it is documented that she ate both. (9) Unintentional weight loss: Code(s): R63.4 - Abnormal weight loss Status: Acute Assessment and Plan: See notes above (10) COPD with emphysema: Code(s): J43.9 - Emphysema, unspecified Status: Acute Assessment and Plan: The patient apparently has smoked as many as 2 packs a day for most of her life
--- NOTE | 2021-08-14 13:42 | PM.DS ---
DS: Summary Time Spent with Patient Time attestation: Total time spent providing and/or coordinating discharge services: DS: Data Data Completed and Pending Completed studies during hospitalization: Pending at discharge 08/11/21 13:18 Surgical [PTH] Routine Labs on day of discharge: Labs from last 24 hours 08/14/21 08/14/21 08/09/21 05:38 05:38 18:53 WBC 8.9 RBC 3.25 L Hgb 8.7 L Hct 28.8 L MCV 88.6 MCH 26.8 MCHC 30.2 L RDW 14.5 Plt Count 215 MPV 10.7 H Sodium 142 Potassium 4.5 Chloride 112 H Carbon Dioxide 23 Anion Gap 7 L BUN 23 H Creatinine 1.90 H Estim Creat Clear Calc 15 Estimated GFR 26 L Glucose 91 Calcium 8.5 RBC Folate >1000 Hematocrit 24.0 Discharge Plan Discharge Attending physician on discharge: Sarita Bustos Consulting providers: Antwon Ashraf ; Ottoniel Werner ; Nicolás Fried ; Kraig Madison ; Diaz Cruz ; Cliff Dodson ; Jose Ramirez Discharging Clinician: Sarita Bustos Anticipated Discharge Date/Time: 08/14/21 16:00 Patient Disposition: Home Health Service Activity: february shower Diet: regular Discharge Instructions: Per Care Coordination, patient has appt to see JUSTIN Beach in [facility] office on August 25 at 10 am [phone]. Per Care Coordination [facility] ( [facility]) [phone]. Home Health will see patient in the home after patient sees JUSTIN Cooper at [facility] office on Aug 25 at 10 am. Patient Instructions: Antibiotic Form Patient Language: Wolof Stand Alone Forms: General Discharge Information Follow-up/Referrals: Cliff Dodson MD [Physician] - 1 Week Kraig Madison DO [Physician] - 2 Weeks Jose Ramirez MD [Physician] - 2 Weeks Diaz Cruz MD [Physician] - 6 Weeks Discharge Medications: New amlodipine 2.5 mg Tablet 2.5 mg PO QAM Qty: 30 RF: 0 memantine [Namenda] 10 mg Tablet 10 mg PO Q12HR Qty: 60 RF: 0 fluoxetine [Prozac] 10 mg Capsule 10 mg PO QAM Qty: 30 RF: 0 ferrous sulfate [Feosol] 325 mg (65 mg iron) tablet 325 mg PO BID Qty: 60 RF: 0 No Action No Home Medications RF: 0 Date of admission: 08/10/21 09:45 Primary Care Provider: PHYSICIAN,DETASSELER Admitting Provider: Deb Grossman V. Attending physician on admission: Kaur Enriquez Condition: Stable
--- NOTE | 2021-08-14 13:52 | PCOTNOTE ---
Attempted to see patient for skilled OT session at this time. Patient refused all participation in therapy this date stating, I just want to go back to sleep. I'm overly tired. Will continue per OT POC accordingly.
--- NOTE | 2021-08-14 14:36 | PM.IMPN ---
Progress Note: A&P Assessment and Plan (1) Colonic mass: Onset Date: ~07/2021 Code(s): K63.89 - Other specified diseases of intestine Status: Acute Assessment and Plan: Colonic mass, likely causing severe weight loss and anemia. CEA 39. Oncology evaluation done; pathology shows six H&E levels are examined. They show 5 pieces of colorectal mucosa with areas of invasive adenocarcinoma in the form of atypical glands, some with cribriforming, associated with a desmoplastic stromal reaction. The atypical epithelium of the neoplastic glands is continuous with the surface epithelium, suggesting origin at this site, although a significant high-grade villous adenomatous surface component is not identified. There is no evidence of lymphovascular invasion or large pools of mucin. (2) COPD with emphysema: Code(s): J43.9 - Emphysema, unspecified Status: Acute Assessment and Plan: Chronic and stable no exacerbation. Currently no evidence of exacerbation. Stable Breathing treatments q.6 hours PRN Inhalers as needed. (3) Acute kidney failure: Code(s): N17.9 - Acute kidney failure, unspecified Status: Acute Assessment and Plan: Creatinine has fluctuated around 1.9-2 since admission. Baseline kidney function is unknown. The given potential her low weight, this likely represents pretty advanced kidney disease. Nephrology evaluation. (4) Syncope: Code(s): R55 - Syncope and collapse Status: Acute Assessment and Plan: Patient was evaluated by Neurology. CT of the head reviewed. MRI shows old infarcts involving the right basal ganglia, right internal capsule, left frontal lobe, left insula, and left temporal load. Stable moderate nonspecific cerebral white matter disease, which likely represents: small vessel ischemic disease. Patient to be started on plavix, but recent GI bleeding from AVM precludes this. Cardiology consult was done. Loop recorder for 1 months. (5) Head lice infestation: Code(s): B85.0 - Pediculosis due to Pediculus humanus capitis Status: Acute Assessment and Plan: Head lice infestation. His status was permethrin application. Social work evaluation for Adult protective Services (6) Unintentional weight loss: Code(s): R63.4 - Abnormal weight loss Status: Acute Assessment and Plan: An intentional weight loss likely related to colonic mass. Follow up Oncology. Encourage oral intake. Patient is on a 3 day calorie count. No evidence of dysphagia. (7) Dementia: Code(s): F03.90 - Unspecified dementia without behavioral disturbance Status: Acute Assessment and Plan: A dementia likely vascular dementia given ischemic findings on the MRI. Start Plavix 7 days after an AVM ablation procedure per GI recommendation. a basic workup including RPR, B12, TSH was unrevealing. (8) Urinary tract infection: Code(s): N39.0 - Urinary tract infection, site not specified Status: Acute Assessment and Plan: Stop Rocephin. Start Augmentin 500 mg p.o. twice daily for another 2 days. (9) Anemia: Code(s): D64.9 - Anemia, unspecified Status: Acute Assessment and Plan: Status post 2 units PRBCs. Continue IV iron supplementation. GI consulted. He had EGD reveals non erosive reflux disease, gastric AVM, duodenal erosion. Findings nonerosive reflux disease was present at the gastroesophageal junction. The knee was the reflux disease appeared at a depth of 36 cm from the incisors. To localize AVM were evident in the body of the stomach with an average size of 3 mm x 5 mm. There was stigmata of bleeding from the AVM. The lesion was ablated with APC successfully. A single erosion was evident in the duodenal bulb. A cold forceps biopsy was taken from the antrum for rapid urease test. Recommend mentation was made to avoid aspirin and NSAID for 5 days. Colonoscopy reveals colonic mass,
--- NOTE | 2021-08-14 16:17 | PM.CNNEP ---
Assessment and Plan Assessment and plan (1) Abnormal results of kidney function studies: Code(s): R94.4 - Abnormal results of kidney function studies Status: Acute Assessment and Plan: The patient has an elevated creatinine. She has been here for about 5 days in the creatinine has been relatively stable. Back in 2011 her creatinine was 1.5. Ultrasound shows small kidneys with echogenicity. So I think this is probably chronic kidney disease. I do not see anything reversible except that she does have a UTI and possibly she might have been a little dehydrated on admission because she is not eating but even with treatment of these 2 entities her creatinine has not improved. At this point I am going to asked the staff to get records from Dr. Mccain office and see what they have as far as former creatinine values more recent than 2012 The patient does have hypertension which can cause chronic kidney disease. She smokes and so this could have caused some vascular disease in the kidneys. Interstitial nephritis, glomerulonephritis are unlikely causes in this clinical scenario. (2) Hypertension: Code(s): I10 - Essential (primary) hypertension Status: Acute Assessment and Plan: Her blood pressure is up and down range from from 97-190. In the last couple of days it seems to range from about 120 to about 160. I think will follow this along for trends. (3) Colonic mass: Onset Date: ~07/2021 Code(s): K63.89 - Other specified diseases of intestine Status: Acute Assessment and Plan: This is being managed by GI (4) Syncope: Code(s): R55 - Syncope and collapse Status: Acute Assessment and Plan: This is being evaluated by Cardiology. (5) Tobacco dependence: Code(s): F17.200 - Nicotine dependence, unspecified, uncomplicated Status: Acute Assessment and Plan: She should stop smoking if possible. She only smokes 2 cigarettes per day now. (6) Urinary tract infection: Code(s): N39.0 - Urinary tract infection, site not specified Status: Acute Assessment and Plan: The patient is on ceftriaxone for this. Culture grew Proteus mirabilis (7) Anemia: Code(s): D64.9 - Anemia, unspecified Status: Acute Assessment and Plan: Hemoglobin is in the 8. This might be due from chronic kidney disease but also due to the colon mass. (8) Dementia: Code(s): F03.90 - Unspecified dementia without behavioral disturbance Status: Acute Assessment and Plan: This gives perspective regarding evaluation of all the above. History of Present Illness Reason for Consult Consult date: 08/14/21 Chief Complaint Chief complaint: Syncope; Anemia; Acute renal failure History of Present Illness Narrative: Bridget is a very pleasant 81-year-old lady who has hypertension, COPD, congestive heart failure, tobacco dependence, who came in the hospital because of a fainting spell. This was witnessed by her son who said that she was unconscious for about 10minutes. He called 911 and had her brought her to the emergency room. There apparently no seizure-like activities. The patient has been in the hospital getting evaluation for this. Neurology evaluated the patient. MRI shows old infarcts. Cardiology evaluated the patient is going to do a loop recorder for the next month as an outpatient. The patient has lost a lot of weight. CT was done which showed a colonic mass. Biopsy was obtained showing invasive adenocarcinoma in some spots in the biopsy specimens. The patient has had significant amount of weight loss. This is felt to be due to the colonic mass. The patient has dementia. Along the way the patient has had creatinine is done and it has shown that her creatinine has been high but stable at around 2.0. It is ranged from 1.9-2.1. She says that she has not been told about elevated creatinine is in the past. Her primary c
[2021-08-14 17:25] LABS: Creatine Kinase 27 U/L (30-135)
[2021-08-14] MEDS: FERROUS SULFATE 324 MG TABLET PO ×2 (18:18→18:19)
[2021-08-14] MEDS: AMOXICILLIN/CLAVULANATE K 500-125 MG TAB 1 TABLET PO (21:40)
[2021-08-15] VITALS (10 sets, daily range): BP systolic 141–159; BP diastolic 48–60; PULSE 64–92; RESP 16–18; TEMP 35.9–37.3; O2SAT 94–100
--- NOTE | 2021-08-15 04:39 | ECG_ITS ---
Measurements Intervals [place] Rate: 95 P: 78 CT: 185 QRS: 19 QRSD: 76 T: 145 QT: 349 QTc: 439 Interpretive Statements SINUS RHYTHM MINIMAL Q WAVES- ANTEROLAT/INF LEADS T WAVE ABNORMALITY IN ANTEROLATERAL LEADS- CONSIDER ISCHEMIA BASELINE WANDER- V3-V5 ABNORMAL ECG Electronically Signed On 08-15-2021 6:49:06 CDT by Kraig Madison D.O.
[2021-08-15 06:43] LABS: Hematocrit 30.9 % (37.0-47.0); Mean Corpuscular HGB Conc 29.1 g/dl (32-36); Mean Corpuscular Hemoglobin 27.1 pg (26-34); Mean Corpuscular Volume 93.1 fl (80-100); Mean Platelet Volume 11.3 fl (7.4-10.4); Platelet Count Result 230 k/mm3 (150-375); Red Blood Count 3.32 M/mm3 (4.2-5.4); Red Cell Distribution Width 15.5 % (11.5-14.5); White Blood Count 27.6 K/mm3 (4.5-10.0)
[2021-08-15 06:51] LABS: Albumin Level 3.7 g/dL (3.5-5.1); Anion Gap 13 mmol/L (8-16); Blood Urea Nitrogen 23 mg/dL (7-17); Calcium 8.6 mg/dL (8.4-10.2); Carbon Dioxide 18 mmol/L (22-30); Chloride 115 mmol/L (98-107); Estimated CRCL calculation 13 ml/min; Estimated Glomerular Filt Rate 22; Glucose 107 mg/dL (65-110); Phosphorus 2.9 mg/dL (2.5-4.5); Potassium 4.6 mmol/L (3.4-5.0); Sodium 146 mmol/L (137-145)
[2021-08-15 07:31] LABS: Anion Gap 12 mmol/L (8-16); Blood Urea Nitrogen 23 mg/dL (7-17); Calcium 8.7 mg/dL (8.4-10.2); Carbon Dioxide 18 mmol/L (22-30); Chloride 115 mmol/L (98-107); Estimated CRCL calculation 12 ml/min; Estimated Glomerular Filt Rate 20; Glucose 107 mg/dL (65-110); Potassium 4.5 mmol/L (3.4-5.0); Sodium 145 mmol/L (137-145)
[2021-08-15 07:47] LABS: Prealbumin 13.1 mg/dL (17.6-36.0)
--- NOTE | 2021-08-15 08:01 | PM.PNNEP ---
Progress Note: A&P Assessment and Plan (1) Abnormal results of kidney function studies: Code(s): R94.4 - Abnormal results of kidney function studies Status: Acute Assessment and Plan: The patient has an elevated creatinine. This has been stable during this admission. Back in 2011 her creatinine was 1.5. Ultrasound shows small kidneys with echogenicity. CPK is 27. UA shows bladder infection. This is most likely chronic kidney disease due to hypertension. (2) Hypertension: Code(s): I10 - Essential (primary) hypertension Status: Acute Assessment and Plan: Her blood pressure is up and down range from from 97-150 She is on amlodipine (3) Colonic mass: Onset Date: ~07/2021 Code(s): K63.89 - Other specified diseases of intestine Status: Acute Assessment and Plan: This is being managed by GI (4) Syncope: Code(s): R55 - Syncope and collapse Status: Acute Assessment and Plan: This is being evaluated by Cardiology. (5) Tobacco dependence: Code(s): F17.200 - Nicotine dependence, unspecified, uncomplicated Status: Acute Assessment and Plan: She should stop smoking if possible. She only smokes 2 cigarettes per day now. (6) Urinary tract infection: Code(s): N39.0 - Urinary tract infection, site not specified Status: Acute Assessment and Plan: The patient is on amoxicillin. Culture grew Proteus mirabilis (7) Anemia: Code(s): D64.9 - Anemia, unspecified Status: Acute Assessment and Plan: Hemoglobin is in the 8. This might be due from chronic kidney disease but also due to the colon mass. Dr. Dodson is managing this. (8) Dementia: Code(s): F03.90 - Unspecified dementia without behavioral disturbance Status: Acute Assessment and Plan: This gives perspective regarding evaluation of all the above. Subjective Date/time seen: 08/15/21 08:01 Interval history: Bridget feels generally weak. No shortness of breath or chest pain Review of Systems Cardiovascular: Cardiovascular: Reports no additional cardiovascular complaints Respiratory: Respiratory: Reports no additional respiratory complaints Gastrointestinal: Gastrointestinal: Reports no additional gastrointestinal complaints Genitourinary: Genitourinary: Reports no additional female genitourinary complaints Exam Narrative: WDWN but very thin lady in NAD skin no rash head ncat lungs clear cor reg no rub abd BS+ nontender and soft ext no edema. Objective Data Vital Signs Vital Signs: Vital Signs - 24 hr 08/14/21 12:00 08/14/21 14:00 08/14/21 16:00 Temperature 35.8 C L Pulse Rate 86 90 87 Respiratory Rate 20 Blood Pressure Pulse Oximetry 99 08/14/21 20:20 08/14/21 22:00 08/15/21 00:00 Temperature 37.3 C Pulse Rate 86 92 92 Respiratory Rate 18 Blood Pressure 158/58 H Pulse Oximetry 99 08/15/21 04:00 08/15/21 06:00 Temperature 37.3 C Pulse Rate 77 87 Respiratory Rate 18 Blood Pressure 159/55 H Pulse Oximetry 97 Intake/Output Intake/Output: Intake & Output 08/12/21 08/13/21 08/14/21 08/15/21 23:59 23:59 23:59 23:59 Intake Total 660 487 390 750 Balance 660 487 390 750 Meds/Results Medications: Active Medications Generic Name Dose Route Start Last Admin Trade Name Valeria PRN Reason Stop Dose Admin Amlodipine Besylate 2.5 mg 08/13/21 16:30 08/14/21 10:25 Amlodipine Besylate 2.5 Mg Tablet PO 2.5 mg QAM KIP Administration Amoxicillin/Clavulanate Potassium 1 tablet 08/14/21 21:00 08/14/21 21:40 Amoxicillin/Clavulanate K 500-125 Mg Tab PO 1 tablet Q12HR KIP Administration Ferrous Sulfate 324 mg 08/14/21 13:40 08/14/21 18:19 Ferrous Sulfate 324 Mg Tablet PO 324 mg BIDWM KIP Administration Fluoxetine HCl 10 mg 08/10/21 09:00 08/14/21 10:25 Fluoxetine Hcl 10 Mg Capsule PO 10 mg QAM KIP Administra
--- NOTE | 2021-08-15 09:04 | PM.IMPN ---
Progress Note: A&P Assessment and Plan (1) Sepsis: Code(s): A41.9 - Sepsis, unspecified organism Status: Acute Assessment and Plan: Patient appears unchanged clinically. Significant leukocytosis today triggers sepsis workup. As patient signals abdominal symptoms, she was started on Zosyn. Stat portable chest x-ray was unrevealing. We have ordered repeat CBC confirming and significant leukocytosis with left shift, blood culture, lactic acid which came back mildly elevated at 2.3. Continued Zosyn adjusted to the patient renal function. 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 CEA 39. Currently patient is being evaluated for surgical treatment versus GI intervention versus conservative management with chemotherapy. Oncology evaluation done; pathology shows six H&E levels are examined. They show 5 pieces of colorectal mucosa with areas of invasive adenocarcinoma in the form of atypical glands, some with cribriforming, associated with a desmoplastic stromal reaction. The atypical epithelium of the neoplastic glands is continuous with the surface epithelium, suggesting origin at this site, although a significant high-grade villous adenomatous surface component is not identified. There is no evidence of lymphovascular invasion or large pools of mucin. (3) History of stroke: Onset Date: Unknown Code(s): Z86.73 - Personal history of transient ischemic attack (TIA), and cerebral infarction without residual deficits Status: Acute Assessment and Plan: Patient has a history of stroke. She presented with a history of syncope. She was evaluated by Neurology, CT and MRI of the head reviewed. Old infarcts involving the right basal ganglia, right internal capsule, left frontal lobe, left insula and left temporal lobe. This likely represents small-vessel ischemic disease. Patient is to be started on Plavix, but recent GI bleeding from AVM precludes this for 1 week. Consultation with cardiology was done and loop recorder for 1 month was recommended. (4) Weight loss: Onset Date: ~06/2021 Code(s): R63.4 - Abnormal weight loss Status: Acute Assessment and Plan: Likely secondary to adenocarcinoma of the colon. Encourage oral intake. (5) Acute kidney failure: Onset Date: ~07/2021 Code(s): N17.9 - Acute kidney failure, unspecified Status: Acute Assessment and Plan: Baseline kidney function is unknown. He had creatinine has fluctuated around 1.9-2 since admission. Mild increased to 2.2 today, the significant of which is unknown. Somewhat currently the patient is producing adequate amount of urine. Her electrolytes are within normal range. There is no indication for renal replacement therapy. We can preserve the nondominant arm for future eventual dialysis needs. Avoid blood draws in non dominant arm. Avoid nephrotoxic agents. Avoid or minimize contrast exposure. Ultrasound shows small kidneys with echogenic CT. This is probably chronic kidney disease, related to hypertension. Smoking could have caused some vascular disease in the kidneys. (6) Syncope: Code(s): R55 - Syncope and collapse Status: Acute Assessment and Plan: Likely multifactorial in the setting of severe anemia, old infarcts and dementia. Maintain fall precautions. (7) Head lice infestation: Code(s): B85.0 - Pediculosis due to Pediculus humanus capitis Status: Acute Assessment and Plan: Patient was treated with permethrin application. Care coordination is finding vulnerable adult report. (8) Tobacco dependence: Onset Date: Unknown Code(s): F17.200 - Nicotine dependence, unspecified, uncomplicated Status: Acute Assessment and Plan: Counseled to
[2021-08-15 10:09] LABS: INR 1.1; Prothrombin Time 14.2 Seconds (11.1-14.7)
[2021-08-15 10:10] LABS: Basophils Absolute Auto 0.1 K/mm3 (0.0-0.1); Basophils Percent Auto 0.2 % (0.2-1.2); Hematocrit 32.4 % (37.0-47.0); Hemoglobin 9.6 g/dL (12.0-15.0); Immature Granulocyte Absolute 0.44 K/mm3 (0.00-0.031); Immature Granulocyte Percent A 1.4 % (0-0.5); Lactic Acid Reflex 2.2 mmol/L (0.7-2.1); Lymphocytes Percent Auto 3.1 % (18.3-44.2); Mean Corpuscular HGB Conc 29.6 g/dl (32-36); Mean Corpuscular Hemoglobin 27.4 pg (26-34); Mean Corpuscular Volume 92.3 fl (80-100); Mean Platelet Volume 11.3 fl (7.4-10.4); Monocytes Absolute Auto 1.1 K/mm3 (0.1-0.6); Monocytes Percent Auto 3.6 % (2.6-8.5); Neutrophils Absolute Auto 29.4 K/mm3 (1.3-6.7); Neutrophils Percent Auto 91.7 % (45.5-73.1); Platelet Count Result 233 k/mm3 (150-375); Red Blood Count 3.51 M/mm3 (4.2-5.4); Red Cell Distribution Width 15.6 % (11.5-14.5); White Blood Count 32.1 K/mm3 (4.5-10.0)
[2021-08-15] MEDS: FERROUS SULFATE 324 MG TABLET PO ×2 (10:17→18:02)
[2021-08-15] MEDS: PRAVASTATIN SODIUM 5 MG TABLET PO (10:17)
[2021-08-15] MEDS: MEMANTINE 10 MG TABLET PO ×2 (10:17→22:33)
[2021-08-15] MEDS: FLUoxetine HCL 10 MG CAPSULE PO (10:18)
[2021-08-15] MEDS: amLODIPine BESYLATE 2.5 MG TABLET PO (10:18)
[2021-08-15] MEDS: LORATADINE 10 MG TABLET PO (10:18)
--- NOTE | 2021-08-15 10:24 | PM.PNGS ---
Progress Note: A&P Assessment and Plan (1) Adenocarcinoma of sigmoid colon: Onset Date: ~07/2021 Code(s): C18.7 - Malignant neoplasm of sigmoid colon Status: Acute Assessment and Plan: This is the reason that I was asked to see the patient. I again talked with her son Timoteo today. Explained that she does have a nonobstructing cancer in the sigmoid colon. If stable she should consider having a sigmoid resection with anastomosis. However, patient has significant medical comorbidities including previous strokes, current stenosis of the left carotid artery, and known coronary vessel disease. Patient also has COPD which will make her at increased risk for anesthesia and pneumonia postop. I believe they should go in for a consultation with a vascular surgeon prior to any colonic surgery to consider stenting versus carotid enterectomy of the left carotid to prevent possible further stroke at the time of general anesthesia for her to 4 hour colon surgery. Also, she should see Dr. Dodson and talk about alternatives. Certainly the typical standard of care would be a bowel prep followed by a sigmoid colon resection with appropriate removal of lymph nodes for staging. However in view of her increased risks she may decide to simply used an oral chemotherapy and have Dr. Werner try to ablate the tumor and then follow it. This would be an alternative. Patient should stop smoking in order to reduce the risks of stroke, heart attack, and complications around the time of any intervention. (2) Hypertension: Onset Date: Unknown Code(s): I10 - Essential (primary) hypertension Status: Acute Assessment and Plan: May need medications for this upon discharge. Readings have been variable in the hospital. (3) Anemia: Code(s): D64.9 - Anemia, unspecified Status: Acute Assessment and Plan: This is most likely secondary to bleeding from her gastric AVMs which have now been cauterized. This may have been slow loss over time from these and the now known adenocarcinoma of the sigmoid. Dr. Dodson is following and iron studies have been done. The H pylori was negative on closed test at the time of her EGD. (4) Acute kidney failure: Onset Date: ~07/2021 Code(s): N17.9 - Acute kidney failure, unspecified Status: Acute Assessment and Plan: Most likely secondary to debilitation, hypertension, and atherosclerosis secondary to her smoking. This was also a new finding during this admission and makes her at increased risk for further interventions. Appreciate nephrology consultation. (5) Tobacco dependence: Onset Date: Unknown Code(s): F17.200 - Nicotine dependence, unspecified, uncomplicated Status: Acute Assessment and Plan: notes seem to indicate patient was down to 2 cigarettes per day before coming to the hospital. Will encourage her to not smoke when she leaves. (6) Urinary tract infection: Onset Date: ~07/2021 Code(s): N39.0 - Urinary tract infection, site not specified Status: Acute Assessment and Plan: Cultured Proteus mirabilis. On antibiotics (7) COPD with emphysema: Code(s): J43.9 - Emphysema, unspecified Status: Acute Assessment and Plan: history of long-term smoking. Chest x-ray today: Subjective Subjective Date/Time Seen: 08/15/21 10:24 Patient reports: still having pain ( however patient does not seem to be able to localize it exactly) and bowel movement ( loose, incontinent in depends) Interval history: Initially patient denies abdominal pain. Then when asked where she hurts she does put her hand on her upper right abdomen. Subsequently states that both arms hurt but this was well blood was being drawn. Review of Systems Review of Systems: All systems reviewed & are unremarkable except as noted in HPI and below Constitutional: Constitutional: Reports as per HPI, Den
[2021-08-15 12:20] LABS: Lactate Dehydrogenase 401 U/L (313-618)
[2021-08-15 12:51] LABS: Reflex Lactic Acid Yes or No Add Lactic
[2021-08-15] MEDS: PANTOPRAZOLE SOD SESQUIHYDRATE 20 MG TAB PO (13:02)
[2021-08-15 13:17] LABS: Lactic Acid 1.7 mmol/L (0.7-2.1)
[2021-08-16] VITALS (10 sets, daily range): BP systolic 95–143; BP diastolic 58–65; PULSE 69–81; RESP 18; TEMP 36.3–37.3; O2SAT 95–98
[2021-08-16 06:40] LABS: Basophils Percent Auto 0.2 % (0.2-1.2); Eosinophils Absolute Auto 0.1 K/mm3 (0-0.3); Eosinophils Percent Auto 0.6 % (0-4.4); Hematocrit 28.3 % (37.0-47.0); Hemoglobin 8.5 g/dL (12.0-15.0); Immature Granulocyte Absolute 0.13 K/mm3 (0.00-0.031); Immature Granulocyte Percent A 0.7 % (0-0.5); Lymphocytes Absolute Auto 1.12 K/mm3 (0.9-3.2); Mean Corpuscular Hemoglobin 26.9 pg (26-34); Mean Corpuscular Volume 89.6 fl (80-100); Monocytes Absolute Auto 0.9 K/mm3 (0.1-0.6); Monocytes Percent Auto 4.8 % (2.6-8.5); Neutrophils Absolute Auto 16.3 K/mm3 (1.3-6.7); Neutrophils Percent Auto 87.7 % (45.5-73.1); Platelet Count Result 207 k/mm3 (150-375); Red Blood Count 3.16 M/mm3 (4.2-5.4); Red Cell Distribution Width 15.9 % (11.5-14.5); White Blood Count 18.6 K/mm3 (4.5-10.0)
[2021-08-16 06:51] LABS: Anion Gap 11 mmol/L (8-16); Blood Urea Nitrogen 32 mg/dL (7-17); Calcium 8.6 mg/dL (8.4-10.2); Carbon Dioxide 18 mmol/L (22-30); Chloride 117 mmol/L (98-107); Estimated CRCL calculation 10 ml/min; Estimated Glomerular Filt Rate 17; Glucose 90 mg/dL (65-110); Potassium 4.2 mmol/L (3.4-5.0); Sodium 146 mmol/L (137-145)
[2021-08-16] MEDS: SODIUM CHLORIDE 0.9% IV 250 ML 999 ML IV CONT (08:10)
--- NOTE | 2021-08-16 08:31 | PM.PNGS ---
Progress Note: A&P Assessment and Plan (1) Adenocarcinoma of sigmoid colon: Onset Date: ~07/2021 Code(s): C18.7 - Malignant neoplasm of sigmoid colon Status: Acute Assessment and Plan: This is the reason that I was asked to see the patient. Yesterday I again talked with her son Timoteo today. Explained that she does have a nonobstructing cancer in the sigmoid colon. If stable she should consider having a sigmoid resection with anastomosis. ---- However, patient has significant medical comorbidities including previous strokes, current stenosis of the left carotid artery, and known coronary vessel disease. Patient also has COPD which will make her at increased risk for anesthesia and pneumonia postop. I believe they should go in for a consultation with a vascular surgeon prior to any colonic surgery to consider stenting versus carotid enterectomy of the left carotid to prevent possible further stroke at the time of general anesthesia for her to 4 hour colon surgery. Also, she should see Dr. Dodson and talk about alternatives. Certainly the typical standard of care would be a bowel prep followed by a sigmoid colon resection with appropriate removal of lymph nodes for staging. However in view of her increased risks she may decide to simply used an oral chemotherapy and have Dr. Werner try to ablate the tumor and then follow it. This would be an alternative. Patient should stop smoking in order to reduce the risks of stroke, heart attack, and complications around the time of any intervention. (2) Hypertension: Onset Date: Unknown Code(s): I10 - Essential (primary) hypertension Status: Acute Assessment and Plan: May need medications for this upon discharge. Readings have been variable in the hospital. (3) Anemia: Code(s): D64.9 - Anemia, unspecified Status: Acute Assessment and Plan: This is most likely secondary to bleeding from her gastric AVMs which have now been cauterized. This may have been slow loss over time from these and the now known adenocarcinoma of the sigmoid. Dr. Dodson is following and iron studies have been done. The H pylori was negative on closed test at the time of her EGD. (4) Acute kidney failure: Onset Date: ~07/2021 Code(s): N17.9 - Acute kidney failure, unspecified Status: Acute Assessment and Plan: Most likely secondary to debilitation, hypertension, and atherosclerosis secondary to her smoking. This was also a new finding during this admission and makes her at increased risk for further interventions. Appreciate nephrology consultation. (5) Tobacco dependence: Onset Date: Unknown Code(s): F17.200 - Nicotine dependence, unspecified, uncomplicated Status: Acute Assessment and Plan: notes seem to indicate patient was down to 2 cigarettes per day before coming to the hospital. Will encourage her to not smoke when she leaves. (6) Urinary tract infection: Onset Date: ~07/2021 Code(s): N39.0 - Urinary tract infection, site not specified Status: Acute Assessment and Plan: Cultured Proteus mirabilis. On antibiotics seems to be improving when switched back over to Zosyn IV. We had tried changing her to Augmentin for p.o. treatment of her UTI. Consider repeat cath specimen UA to recheck for resistant UTI. I reviewed her recent CT I abdomen and pelvis and the gallbladder was normal. She has had both EGD and colonoscopy but no deep biopsies taken to be concerned about perforation. No free air under the diaphragm yesterday on upright chest x-ray. (7) COPD with emphysema: Code(s): J43.9 - Emphysema, unspecified Status: Acute Assessment and Plan: history of long-term smoking. Chest x-ray yesterday: --fairly unremarkable. Has some wheezing today that I did not notice yesterday. Subjective Subjective Date/Time Seen: 08/16/21 08:31 Patient repo
[2021-08-16] MEDS: IRON SUCROSE COMPLEX 500 MG in SODIUM CHLORIDE 0.9% IV 250 ML 78 MG IVPB (08:53)
[2021-08-16] MEDS: SODIUM CHLORIDE 0.9% IV 1,000 ML 50 ML IV CONT (08:53)
[2021-08-16] MEDS: LORATADINE 10 MG TABLET PO (08:54)
[2021-08-16] MEDS: FLUoxetine HCL 10 MG CAPSULE PO (08:54)
[2021-08-16] MEDS: FERROUS SULFATE 324 MG TABLET PO ×2 (08:54→17:38)
[2021-08-16] MEDS: PANTOPRAZOLE SOD SESQUIHYDRATE 20 MG TAB PO (08:54)
[2021-08-16] MEDS: PRAVASTATIN SODIUM 5 MG TABLET PO (08:54)
[2021-08-16] MEDS: MEMANTINE 10 MG TABLET PO ×2 (08:55→20:56)
--- NOTE | 2021-08-16 10:12 | PM.PNNEP ---
Progress Note: A&P Assessment and Plan (1) Abnormal results of kidney function studies: Code(s): R94.4 - Abnormal results of kidney function studies Status: Acute Assessment and Plan: The patient has an elevated creatinine. This had been stable during this admission. Today, however, the creatinine is up to 2.7. Her blood pressure is only in the 90s. Her amlodipine was discontinued. Ultrasound shows small kidneys with echogenicity. CPK is 27. UA shows bladder infection. This is most likely chronic kidney disease due to hypertension. Her creatinine is a little bit higher. This might be due to low blood pressure. Her white count is high as well so there may be an infectious issue going on as well. (2) Hypertension: Onset Date: Unknown Code(s): I10 - Essential (primary) hypertension Status: Acute Assessment and Plan: Her blood pressure is up and down range from from 97-150 Amlodipine was discontinued. She says that she is prescribed blood pressure medicine at home but she does not take it. (3) Colonic mass: Onset Date: ~07/2021 Code(s): K63.89 - Other specified diseases of intestine Status: Acute Assessment and Plan: This is being managed by GI (4) Syncope: Code(s): R55 - Syncope and collapse Status: Acute Assessment and Plan: This is being evaluated by Cardiology. (5) Tobacco dependence: Onset Date: Unknown Code(s): F17.200 - Nicotine dependence, unspecified, uncomplicated Status: Acute Assessment and Plan: She should stop smoking if possible. She only smokes 2 cigarettes per day now. (6) Urinary tract infection: Onset Date: ~07/2021 Code(s): N39.0 - Urinary tract infection, site not specified Status: Acute Assessment and Plan: The patient is on amoxicillin. Culture grew Proteus mirabilis (7) Anemia: Code(s): D64.9 - Anemia, unspecified Status: Acute Assessment and Plan: Hemoglobin is in the 8. This might be due from chronic kidney disease but also due to the colon mass. Hemoglobin is 8.5 Dr. Dodson is managing this. (8) Dementia: Code(s): F03.90 - Unspecified dementia without behavioral disturbance Status: Acute Assessment and Plan: This gives perspective regarding evaluation of all the above. Subjective Date/time seen: 08/16/21 10:12 Interval history: Bridget looks a little better. A just a little bit on her tray. She still has loose stools No shortness of breath or chest pain Exam Narrative: WDWN but very thin lady in NAD skin no rash head ncat cor reg rate and rhythm abd nontender and soft ext no edema. Neuro alert and oriented x3. Motor symmetric. Objective Data Vital Signs Vital Signs: Vital Signs - 24 hr 08/15/21 12:00 08/15/21 14:00 08/15/21 16:00 Temperature 36.9 C Pulse Rate 74 84 68 Respiratory Rate 16 Blood Pressure 141/48 H Pulse Oximetry 100 08/15/21 20:55 08/15/21 21:48 08/15/21 21:52 Temperature 35.9 C L Pulse Rate 64 79 Respiratory Rate 18 Blood Pressure 143/60 H Pulse Oximetry 99 94 08/16/21 00:00 08/16/21 04:00 08/16/21 05:51 Temperature 36.3 C L Pulse Rate 72 73 77 Respiratory Rate 18 Blood Pressure 97/60 L Pulse Oximetry 98 Intake/Output Intake/Output: Intake & Output 08/13/21 08/14/21 08/15/21 08/16/21 23:59 23:59 23:59 23:59 Intake Total 487 390 965 0 Output Total 0 Balance 487 390 965 0 Meds/Results Medications: Active Medications Generic Name Dose Route Start Last Admin Trade Name Freq PRN Reason Stop Dose Admin Ferrous Sulfate 324 mg 08/14/21 13:40 08/16/21 08:54 Ferrous Sulfate 324 Mg Tablet PO 324 mg BIDWM KIP Administration Fluoxetine HCl 10 mg 08/10/21 09:00 08/16/21 08:54 Fluoxetine Hcl 10 Mg Capsule PO 10 mg QAM KIP Administration Iron Sucrose 500 mg/ Sodium 275
--- NOTE | 2021-08-16 10:50 | PM.IMPN ---
Progress Note: A&P Assessment and Plan (1) Sepsis: Code(s): A41.9 - Sepsis, unspecified organism Status: Acute Assessment and Plan: Patient appears unchanged clinically. She was morning, her amlodipine was stopped and she was started on continuous IV fluids. This seems to support a diagnosis of sepsis, however this moment a source of infection has not been localized. Significant leukocytosis, slightly improving today triggered a sepsis workup. As patient signals abdominal symptoms, she was started on Zosyn. Stat portable chest x-ray was unrevealing. Recent CT scan done without contrast does not suggest any infective process. Continued Zosyn adjusted to the patient renal function. CBC improved is improving with WBC down to 18.2 today. Concerning is elevation of creatinine of 2.7, and the hypotension which seem to suggest an infectiious process. Id was consulted. Continue Zosyn for now. 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 CEA 39. Currently patient is being evaluated for surgical treatment versus GI intervention versus conservative management with chemotherapy. Oncology evaluation done; pathology shows six H&E levels are examined. They show 5 pieces of colorectal mucosa with areas of invasive adenocarcinoma in the form of atypical glands, some with cribriforming, associated with a desmoplastic stromal reaction. The atypical epithelium of the neoplastic glands is continuous with the surface epithelium, suggesting origin at this site, although a significant high-grade villous adenomatous surface component is not identified. There is no evidence of lymphovascular invasion or large pools of mucin. (3) History of stroke: Onset Date: Unknown Code(s): Z86.73 - Personal history of transient ischemic attack (TIA), and cerebral infarction without residual deficits Status: Acute Assessment and Plan: Patient has a history of stroke. She presented with a history of syncope. She was evaluated by Neurology, CT and MRI of the head reviewed. Old infarcts involving the right basal ganglia, right internal capsule, left frontal lobe, left insula and left temporal lobe. This likely represents small-vessel ischemic disease. Patient is to be started on Plavix, but recent GI bleeding from AVM precludes this for 1 week. Consultation with cardiology was done and loop recorder for 1 month was recommended. (4) Weight loss: Onset Date: ~06/2021 Code(s): R63.4 - Abnormal weight loss Status: Acute Assessment and Plan: Likely secondary to adenocarcinoma of the colon. Encourage oral intake. Prealbumin is 13.1. (5) Acute kidney failure: Onset Date: ~07/2021 Code(s): N17.9 - Acute kidney failure, unspecified Status: Acute Assessment and Plan: Baseline kidney function is unknown. He had creatinine has fluctuated around 1.9-2 since admission. Current creatinine elevation 2.7 today, may be secondary to hypotension and an infectious process of unknown source. (6) Syncope: Code(s): R55 - Syncope and collapse Status: Acute Assessment and Plan: Likely multifactorial in the setting of severe anemia, old infarcts and dementia. Maintain fall precautions. (7) Head lice infestation: Code(s): B85.0 - Pediculosis due to Pediculus humanus capitis Status: Acute Assessment and Plan: Patient was treated with permethrin application. Care coordination is finding vulnerable adult report. (8) Tobacco dependence: Onset Date: Unknown Code(s): F17.200 - Nicotine dependence, unspecified, uncomplicated Status: Acute Assessment and Plan: Counseled to quit smoking. Nicotine patch p.r.n.. (9) Dementia: Code(s): F03.90 - Unspecifi
[2021-08-17] VITALS (8 sets, daily range): BP systolic 110–150; BP diastolic 48–71; PULSE 60–77; RESP 16–18; TEMP 36.2–36.3; O2SAT 94–100
[2021-08-17 05:47] LABS: Hematocrit 26.4 % (37.0-47.0); Hemoglobin 7.6 g/dL (12.0-15.0); Mean Corpuscular HGB Conc 28.8 g/dl (32-36); Mean Corpuscular Hemoglobin 26.8 pg (26-34); Mean Platelet Volume 11.1 fl (7.4-10.4); Platelet Count Result 175 k/mm3 (150-375); Red Blood Count 2.84 M/mm3 (4.2-5.4); Red Cell Distribution Width 16.1 % (11.5-14.5); White Blood Count 11.8 K/mm3 (4.5-10.0)
[2021-08-17 06:09] LABS: Anion Gap 9 mmol/L (8-16); Blood Urea Nitrogen 28 mg/dL (7-17); Calcium 8.3 mg/dL (8.4-10.2); Carbon Dioxide 18 mmol/L (22-30); Chloride 114 mmol/L (98-107); Estimated CRCL calculation 12 ml/min; Estimated Glomerular Filt Rate 19; Glucose 79 mg/dL (65-110); Potassium 3.9 mmol/L (3.4-5.0); Sodium 141 mmol/L (137-145)
--- NOTE | 2021-08-17 07:48 | PM.PNNEP ---
Progress Note: A&P Assessment and Plan (1) Abnormal results of kidney function studies: Code(s): R94.4 - Abnormal results of kidney function studies Status: Acute Assessment and Plan: The patient has an elevated creatinine. This had been stable during this admission. yesterday her creatinine palma to 2.7 in the setting of hypotension. overnight her blood pressure has been better and her creatinine fell to 2.4. Ultrasound shows small kidneys with echogenicity. CPK is 27. UA shows bladder infection. This is most likely chronic kidney disease due to hypertension. Considering her comorbidities, and her labile blood pressure with tiny doses of antihypertensives, I think we will leave her off antihypertensives for now. (2) Hypertension: Onset Date: Unknown Code(s): I10 - Essential (primary) hypertension Status: Acute Assessment and Plan: Her blood pressure is up and down range from from 97-150 Amlodipine was discontinued. We will leave her off antihypertensives for now (3) Colonic mass: Onset Date: ~07/2021 Code(s): K63.89 - Other specified diseases of intestine Status: Acute Assessment and Plan: This is being managed by GI (4) Syncope: Code(s): R55 - Syncope and collapse Status: Acute Assessment and Plan: This is being evaluated by Cardiology. (5) Tobacco dependence: Onset Date: Unknown Code(s): F17.200 - Nicotine dependence, unspecified, uncomplicated Status: Acute Assessment and Plan: She should stop smoking if possible. She only smokes 2 cigarettes per day now. (6) Urinary tract infection: Onset Date: ~07/2021 Code(s): N39.0 - Urinary tract infection, site not specified Status: Acute Assessment and Plan: The patient is on amoxicillin. Culture grew Proteus mirabilis (7) Anemia: Code(s): D64.9 - Anemia, unspecified Status: Acute Assessment and Plan: Hemoglobin is in the 8. This might be due from chronic kidney disease but also due to the colon mass. Hemoglobin is 8.5 Dr. Dodson is managing this. (8) Dementia: Code(s): F03.90 - Unspecified dementia without behavioral disturbance Status: Acute Assessment and Plan: This gives perspective regarding evaluation of all the above. Subjective Date/time seen: 08/17/21 07:48 Interval history: Bridget looksAbout the same. No shortness of breath. Blood pressure better overnight Exam Narrative: WDWN but very thin lady in NAD skin no rash or subQ nodules head ncat cor reg rate and rhythm abd nontender and soft ext no edema or cyanosis. Neuro alert and oriented x3. Motor symmetric. Objective Data Vital Signs Vital Signs: Vital Signs - 24 hr 08/16/21 08:00 08/16/21 12:00 08/16/21 14:00 Temperature 37.3 C Pulse Rate 77 69 81 Respiratory Rate 18 18 Blood Pressure 143/65 H Pulse Oximetry 98 95 08/16/21 16:00 08/16/21 20:00 08/16/21 20:27 Temperature Pulse Rate 78 71 Respiratory Rate Blood Pressure Pulse Oximetry 95 08/16/21 21:45 08/17/21 05:54 Temperature 36.7 C 36.3 C L Pulse Rate 76 77 Respiratory Rate 18 18 Blood Pressure 95/58 L 112/71 Pulse Oximetry 98 100 Intake/Output Intake/Output: Intake & Output 08/14/21 08/15/21 08/16/21 08/17/21 23:59 23:59 23:59 23:59 Intake Total 390 965 500 550 Output Total 0 Balance 390 965 500 550 Meds/Results Medications: Active Medications Generic Name Dose Route Start Last Admin Trade Name Vinodq PRN Reason Stop Dose Admin Ferrous Sulfate 324 mg 08/14/21 13:40 08/16/21 17:38 Ferrous Sulfate 324 Mg Tablet PO 324 mg BIDWM KIP Administration Fluoxetine HCl 10 mg 08/10/21 09:00 08/16/21 08:54 Fluoxetine Hcl 10 Mg Capsule PO 10 mg QAM KIP Administration Piperacillin Sod/Tazobactam Sod 2.25 gm in 50 mls @ 100 mls/hr 08/15/21 10:00 07/25
--- NOTE | 2021-08-17 09:02 | PM.IMPN ---
Progress Note: A&P Assessment and Plan (1) Sepsis: Code(s): A41.9 - Sepsis, unspecified organism Status: Acute Assessment and Plan: Urine cultures from 08/09/2021 growing Proteus mirabilis that was relatively pansensitive. She was given Rocephin on 08/09, 08/12 and 08/13 then changed to Augmentin on 08/14 (recieved one dose). No fevers but SBP dropped into the 90's and WBC climbed to 32K; she was started on Zosyn on 08/15. Blood cultures from 08/15/2021 are no growth to date. CXR clear. Source of infection has not been localized. Since starting Zosyn, WBC has dropped to 11.8K. Continue Zosyn for now. 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 CEA 39. Currently patient is being evaluated for surgical treatment versus GI intervention versus conservative management with chemotherapy. Oncology evaluation done; pathology showing a moderately differentiated adenocarcinoma with at least intramucosal invasion. No evidence of lymphovascular invasion or large pools of mucin. Plan for surgical resection versus medical management. Appreciate Oncology and General surgery input. (3) History of stroke: Onset Date: Unknown Code(s): Z86.73 - Personal history of transient ischemic attack (TIA), and cerebral infarction without residual deficits Status: Acute Assessment and Plan: Patient has a history of stroke. She presented with a complaint of syncope. She was evaluated by Neurology. CT and MRI of the head reviewed showing old infarcts involving the right basal ganglia, right internal capsule, left frontal lobe, left insula and left temporal lobe. Neurology consulted and was concerned about territorial stroke possibly posterior circulation. [place] patient could benefit from anticoagulation therapy given other comorbid conditions, she will benefit for with aspirin and Plavix. Patient with left carotid stenosis noted as well with plans for medical management. Telemetry showing no acute dysrhythmias. Patient was on no anti-platelet therapy on admission. Anti-platelet therapy on hold due to recent GI bleeding from AVM precludes this for 1 week. Consultation with cardiology was done and loop recorder for 1 month was recommended. Appreciate neurology input. Pravastatin added. (4) Weight loss: Onset Date: ~06/2021 Code(s): R63.4 - Abnormal weight loss Status: Acute Assessment and Plan: Likely secondary to adenocarcinoma of the colon. Prealbumin is 13.1. Encourage oral intake. (5) Acute kidney failure: Onset Date: ~07/2021 Code(s): N17.9 - Acute kidney failure, unspecified Status: Acute Assessment and Plan: Baseline kidney function is unknown. Her creatinine has fluctuated around 1.9-2.1 since admission until yesterday when Cr 2.7. Elevated Cr may be secondary to hypotension and/or an infectious process of unknown source and/or dehydration from poor oral intake. IV fluids started and Cr better today. Appreciate Nephrology input. Continue to monitor. Continue IV fluids for today. Calorie count and process. (6) Syncope: Code(s): R55 - Syncope and collapse Status: Acute Assessment and Plan: Likely multifactorial in the setting of severe anemia, old infarcts and dementia. Maintain fall precautions. PT/OT (7) Head lice infestation: Code(s): B85.0 - Pediculosis due to Pediculus humanus capitis Status: Acute Assessment and Plan: Patient was treated with permethrin application. Care coordination is filing a vulnerable adult report. (8) Tobacco dependence: Onset Date: Unknown Code(s): F17.200 - Nicotine dependence, unspecified, uncomplicated Status: Acute Assessment and Plan: Patient has been cou
[2021-08-17] MEDS: LORATADINE 10 MG TABLET PO (10:16)
[2021-08-17] MEDS: PRAVASTATIN SODIUM 5 MG TABLET PO (10:16)
[2021-08-17] MEDS: PANTOPRAZOLE SOD SESQUIHYDRATE 20 MG TAB PO (10:16)
[2021-08-17] MEDS: FERROUS SULFATE 324 MG TABLET PO ×2 (10:16→17:21)
[2021-08-17] MEDS: FLUoxetine HCL 10 MG CAPSULE PO (10:16)
[2021-08-17] MEDS: MEMANTINE 10 MG TABLET PO ×2 (10:16→21:06)
--- NOTE | 2021-08-17 11:10 | PCOTNOTE ---
Attempted to see Patient at this time. Patient refused to participate in any functional activity. Patient verbalizing, I don't need anything, just let me sleep, I'm tired .
--- NOTE | 2021-08-17 12:23 | WPDINFPN2 ---
Progress Note: A&P Assessment and Plan (1) Leukocytosis: Code(s): D72.829 - Elevated white blood cell count, unspecified Status: Acute Assessment and Plan: 1. Leukocytosis, suspected lower GI source with infection 2. Recent UTI 3. Vascular dementia, limits comprehensive history. Exam and all studies do not indicate other source however. 4. Renal insufficiency REC PipTazo #3. If no new developments and WBC returns to normal, suggest at that point Augmentin 500 bid orally through 08/23. Call if Qs Subjective Date/time seen: 08/17/21 12:23 Objective Data Vital Signs Vital Signs: Vital Signs - 24 hr 08/16/21 14:00 08/16/21 16:00 08/16/21 20:00 Temperature 37.3 C Pulse Rate 81 78 71 Respiratory Rate 18 Blood Pressure 143/65 H Pulse Oximetry 95 08/16/21 20:27 08/16/21 21:45 08/17/21 05:54 Temperature 36.7 C 36.3 C L Pulse Rate 76 77 Respiratory Rate 18 18 Blood Pressure 95/58 L 112/71 Pulse Oximetry 95 98 100 08/17/21 08:00 08/17/21 12:00 Temperature Pulse Rate 70 70 Respiratory Rate Blood Pressure Pulse Oximetry Intake/Output Intake/Output: Intake & Output 08/14/21 08/15/21 08/16/21 08/17/21 23:59 23:59 23:59 23:59 Intake Total 390 965 500 650 Output Total 0 Balance 390 965 500 650 Meds/Results Medications: Active Medications Generic Name Dose Route Start Last Admin Trade Name Freq PRN Reason Stop Dose Admin Ferrous Sulfate 324 mg 08/14/21 13:40 08/17/21 10:16 Ferrous Sulfate 324 Mg Tablet PO 324 mg BIDWM KIP Administration Fluoxetine HCl 10 mg 08/10/21 09:00 08/17/21 10:16 Fluoxetine Hcl 10 Mg Capsule PO 10 mg QAM KIP Administration Piperacillin Sod/Tazobactam Sod 2.25 gm in 50 mls @ 100 mls/hr 08/15/21 10:00 08/17/21 09:34 Zosyn 2.25 Gm/D5w 50 Ml IVPB Infused Q8H KIP Infusion Sodium Chloride 1,000 mls @ 50 mls/hr 08/16/21 07:40 08/16/21 08:53 Normal Saline Iv IV CONT 50 mls/hr .Q20H KIP Administration Loratadine 10 mg 08/10/21 12:00 08/17/21 10:16 Loratadine 10 Mg Tablet PO 10 mg QAM KIP Administration Memantine 10 mg 08/10/21 09:00 08/17/21 10:16 Memantine 10 Mg Tablet PO 10 mg Q12HR KIP Administration Ondansetron HCl 4 mg 08/09/21 21:47 Ondansetron Inj 4 Mg/2 Ml Vial IV PUSH Q4H PRN Nausea Pantoprazole Sodium 20 mg 08/15/21 09:15 08/17/21 10:16 Pantoprazole Sod Sesquihydrate 20 Mg Tab PO 20 mg QAM KIP Administration Pravastatin Sodium 5 mg 08/12/21 09:00 08/17/21 10:16 Pravastatin Sodium 5 Mg Tablet PO 5 mg DAILY KIP Administration Zinc Acetate/Diphenhydramine 1 applic 08/10/21 10:58 08/12/21 10:38 Diphenhydramine 1%/Zinc 0.1% Cream 30 Gm Tube TOPICAL 1 applic QID PRN Administration Itching Radiology Results: ITS Impressions Head CT 08/09/21 19:53 IMPRESSION: 1. 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 2. Moderate nonspecific cerebral white matter disease, which likely represents chronic small vessel ischemic disease. Brain MRI 08/10/21 14:20 IMPRESSION: 1. 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 2. Stable moderate nonspecific cerebral white matter disease, which likely represents chronic small vessel ischemic disease. Renal Ultrasound 08/10/21 15:12 IMPRESSION: 1. Bilateral renal atrophy without acute findings. Carotid Doppler Study 08/11/21 10:50 IMPRESSION: 1. <50% stenosis in the right internal carotid artery. 2. >=70% (but less than near occlusion) stenosis in the left internal carotid artery. 3. No patent right vertebral artery identified on color Doppler with no discernible flow void on prior brain MR and this is likely occluded. Abdomen/Pelvis CT 08/13/21 13:44 IMPRESSION: 1. No evidence of metastatic disease.
--- NOTE | 2021-08-17 13:41 | CONS_ITS ---
DATE OF CONSULTATION: 08/17/2021 REASON FOR CONSULTATION: Leukocytosis. HISTORY OF PRESENT ILLNESS: A 81-year-old female, who can provide limited history. She was originally admitted to the hospital approximately 8 days ago with an episode of unresponsiveness. Chart indicates 30 pounds of weight loss. She admits to 20 pounds to me. Initial evaluation in the emergency room suggested syncope, UTI, iron deficiency anemia. However, while here, she was found to have a nonobstructing sigmoid colon mass with biopsies indicating adenocarcinoma. She has not yet received any treatment. While here, she has not received any corticosteroids. She did receive ceftriaxone for suspected UTI since stopped being 2 days ago. Her white blood cell count had new elevation. She was started on piperacillin and consultation now requested. She denies pain at current or past IV sites, dyspnea, chest pain, diarrhea, constipation, lower extremity edema, cough, fever subjectively, chills, sweats. Two days ago, she noted right-sided abdominal pain, but denies any pain currently to me. Chart indicates no antibiotics given prior to admission. ALLERGIES: NONE PERTINENT. HABITS: Ex-smoker. Alcohol intake unknown. PRESENT MEDICATIONS: No immunosuppressants. PAST MEDICAL HISTORY: Heart failure, COPD, hypertension, and cataract surgery. FAMILY HISTORY: Not pertinent to her present illness. SOCIAL HISTORY: She lives with family locally. She is not employed. No family at the bedside currently. REVIEW OF SYSTEMS: 14-point review otherwise negative. PHYSICAL EXAMINATION: GENERAL: Cachectic elderly female, appears older than her actual age. No acute distress. VITAL SIGNS: 112/71, 18, 77, afebrile throughout, 100% on room air. SKIN: Senescent changes. No ecchymosis, ulcerations. Warm and dry. No rashes. NODES: She has no axillary or cervical adenopathy. EENT: Conjunctivae are clear. No icterus. The oral mucosa is dry. Otherwise normal. No paranasal sinus inflammation. NECK: Without meningismus, mass, tenderness. LUNGS: Clear to auscultation and percussion. CARDIAC: Regular rate and rhythm. No murmurs or gallops. ABDOMEN: Nontender, soft. No organomegaly. No masses. EXTREMITIES: Without clubbing, cyanosis, edema. LABORATORY DATA: White blood cell count normal on admission, palma to 27.6 two days ago, up to 32.1 several hours later, down to 11.8 today, hemoglobin 7.6, platelets are 175. No differential done today. Yesterday showed a left shift on automated differential. No eosinophilia. Showed hypernatremia yesterday, which has now been corrected. BUN 28, creatinine 2.4 down from 2.7. Lactate normal. Albumin normal. Urinalysis not repeated. I reviewed the original findings. Urine culture is a susceptible Proteus on admission. Blood cultures not done on admission. These were done 2 days ago. No growth after 2 days incubation. RADIOLOGY: Abdomen and pelvic CT showed diverticulosis, right basilar opacities of the lungs, kidney cyst, cortical thickening of the kidneys. Chest x-ray normal. Renal ultrasound, cortical atrophy. Brain MRI, multiple infarcts. ASSESSMENT: 1. Leukocytosis. She had all appropriate testing, which indicates lower gastrointestinal source of her infection. Would be suspicious of sigmoid or other colon source associated with her malignancy. Less likely sources would include Clostridium difficile infection, IV catheter related phlebitis, urinary tract infection, community-acquired or healthcare associated pneumonia or other sources. 2. Vascular dementia, which markedly compromises comprehensive and accurate history. However, she had all appropriate studies at this time, and her physical exam does not reveal other sources of her leuko
[2021-08-17] MEDS: SODIUM CHLORIDE 0.9% IV 1,000 ML 50 ML IV CONT (14:26)
--- NOTE | 2021-08-17 16:07 | PM.PNGS ---
Progress Note: A&P Assessment and Plan (1) Adenocarcinoma of sigmoid colon: Onset Date: ~07/2021 Code(s): C18.7 - Malignant neoplasm of sigmoid colon Status: Acute Assessment and Plan: Mass in the mid sigmoid colon on colonoscopy. This is not obstructing and no evidence of metastatic disease on CT. CEA elevated at 39.0 She is tolerating a diet and her bowels are moving. With her multiple co-morbidities and current stenosis of the left carotid artery, she would be a high risk surgical candidate. Dr. Dodson has been consulted and plans to follow-up with the patient as an outpatient to further discuss her treatment options. If she and her family decide they would like to proceed with surgical resection, then she can follow-up with Dr. Ramirez after seeing Dr. Dodson. If she does choose to move forward with surgery, then we would also recommend an evaluation from a vascular surgeon to consider intervention of the left carotid stenosis to prevent possible further stroke at the time of general anesthesia. Okay from our standpoint to discharge the patient when okay with other services. (2) Hypertension: Onset Date: Unknown Code(s): I10 - Essential (primary) hypertension Status: Acute (3) Anemia: Code(s): D64.9 - Anemia, unspecified Status: Acute (4) Acute kidney failure: Onset Date: ~07/2021 Code(s): N17.9 - Acute kidney failure, unspecified Status: Acute Assessment and Plan: Nephrology following. Creatinine 2.4 today. (5) Tobacco dependence: Onset Date: Unknown Code(s): F17.200 - Nicotine dependence, unspecified, uncomplicated Status: Acute Assessment and Plan: Cessation has been discussed, especially if considering surgery. (6) Urinary tract infection: Onset Date: ~07/2021 Code(s): N39.0 - Urinary tract infection, site not specified Status: Acute (7) COPD with emphysema: Code(s): J43.9 - Emphysema, unspecified Status: Acute Assessment and Plan: Increases risk for surgery. (8) Leukocytosis: Code(s): D72.829 - Elevated white blood cell count, unspecified Status: Acute Assessment and Plan: Unclear etiology. Improving with WBC downt o 11,800 today. ID consulted and suggests possible lower GI source associated with her malignancy. Continue abx per ID. Additional Plan I have discussed the patient's case and plan of care with Dr. Ramirez. Subjective Subjective Date/Time Seen: 08/17/21 14:07 Patient reports: no new complaints, tolerating a regular diet, flatus, bowel movement and afebrile Interval history: This is a 81 yo F with vascular dementia, COPD, CHF, and HTN who presented to the ER after becoming unresponsive. She was found to be profoundly anemic and underwent a colonoscopy on 08/11/21 with findings of diverticulosis, internal hemorrhoids, and a nonobstructing colonic mass in the mid sigmoid. Biopsies showed colorectal adenocarcinoma. Our service is now seeing her for this. She has been advanced on her diet and is tolerating this well. She is seen on the medical floor this afternoon and history is limited due to her dementia. She denies abdominal pain, nausea, vomiting, or bloating. Bowels are moving. No other specific complaints at the time of my exam. She was seen by ID due to significant leukocytosis. Her WBC jumped up to as high as 32,000 and is down to 11,800 today. She is afebrile. Currently on IV Zosyn. Review of Systems Review of Systems: ROS unobtainable: Yes unobtainable due to medical condition (dementia) Exam Const: General: no acute distress, alert and awake Nutritional Appearance: thin and underweight Orientation/consciousness: confusion (hx dementia) GI: Inspection: normal to inspection and non-distended GI Palp: Yes Soft to palpation, No Tenderness to palpation present (GI), No Guarding due to palpation present (GI), No Palpable mass present (no palpable
[2021-08-18 06:00] VITALS: BP 115/78; PULSE 81; RESP 18; TEMP 36.5; O2SAT 100
[2021-08-18 06:03] LABS: Hematocrit 26.3 % (37.0-47.0); Hemoglobin 7.8 g/dL (12.0-15.0); Mean Corpuscular HGB Conc 29.7 g/dl (32-36); Mean Corpuscular Hemoglobin 27.1 pg (26-34); Mean Corpuscular Volume 91.3 fl (80-100); Mean Platelet Volume 10.7 fl (7.4-10.4); Platelet Count Result 183 k/mm3 (150-375); Red Blood Count 2.88 M/mm3 (4.2-5.4); White Blood Count 7.9 K/mm3 (4.5-10.0)
[2021-08-18 06:19] LABS: Anion Gap 7 mmol/L (8-16); Blood Urea Nitrogen 22 mg/dL (7-17); Calcium 8.2 mg/dL (8.4-10.2); Carbon Dioxide 18 mmol/L (22-30); Chloride 118 mmol/L (98-107); Estimated CRCL calculation 14 ml/min; Estimated Glomerular Filt Rate 24; Glucose 73 mg/dL (65-110); Magnesium 1.7 mg/dL (1.6-2.3); Phosphorus 2.6 mg/dL (2.5-4.5); Potassium 4.1 mmol/L (3.4-5.0); Sodium 143 mmol/L (137-145)
[2021-08-18 08:00] VITALS: PULSE 68
[2021-08-18] MEDS: MAGNESIUM SULF 1 GM/D5W 100 ML 1 GM/100 ML BAG IVPB (08:45)
[2021-08-18] MEDS: FLUoxetine HCL 10 MG CAPSULE PO (08:46)
[2021-08-18] MEDS: PANTOPRAZOLE SOD SESQUIHYDRATE 20 MG TAB PO (08:46)
[2021-08-18] MEDS: MEMANTINE 10 MG TABLET PO (08:46)
[2021-08-18] MEDS: PRAVASTATIN SODIUM 5 MG TABLET PO (08:46)
[2021-08-18] MEDS: FERROUS SULFATE 324 MG TABLET PO (08:46)
[2021-08-18] MEDS: LORATADINE 10 MG TABLET PO (08:46)
[2021-08-18] MEDS: SODIUM BICARBONATE TAB 650 MG TABLET PO (08:47)
[2021-08-18] MEDS: AMOXICILLIN/CLAVULANATE K 250-125 MG TAB 1 TABLET PO (10:29)
--- NOTE | 2021-08-18 10:34 | PC.NURSE ---
On 08/18/21, the student, [ Nini Benton], provided care and completed [facility] documentation on this patient. I have reviewed the student's documentation and agree with the findings.
--- NOTE | 2021-08-18 11:29 | PM.DS ---
DS: Admitting Diagnosis Discharge Date 08/18/21 Admitting Diagnosis Syncope DS: Discharge Diagnosis Discharge Diagnosis (1) Sepsis: Code(s): A41.9 - Sepsis, unspecified organism Status: Acute Assessment and Plan: Urine cultures from 08/09/2021 growing Proteus mirabilis that was relatively pansensitive. She was given Rocephin on 08/09, 08/12 and 08/13 then changed to Augmentin on 08/14 (recieved one dose). No fevers but SBP dropped into the 90's and WBC climbed to 32K; she was started on Zosyn on 08/15. Blood cultures from 08/15/2021 are no growth to date. CXR clear. Another source of infection was not localized. Since starting Zosyn, WBC normallized. ID consulted and recommended Augmentin through 08/23/21. (2) Adenocarcinoma of sigmoid colon: Onset Date: ~07/2021 Code(s): C18.7 - Malignant neoplasm of sigmoid colon Status: Acute Assessment and Plan: Colonic mass found to have colon CA likely causing severe weight loss and anemia. CEA 39. Pathology showing a moderately differentiated adenocarcinoma with at least intramucosal invasion. No evidence of lymphovascular invasion or large pools of mucin. Currently patient is being evaluated for surgical treatment versus GI intervention versus conservative management with chemotherapy. Appreciate Oncology and General surgery input. Plan for patient to follow up with Oncology to discuss options. If surgery requested, then patient will need to be cleared by vascular surgery. (3) History of stroke: Onset Date: Unknown Code(s): Z86.73 - Personal history of transient ischemic attack (TIA), and cerebral infarction without residual deficits Status: Acute Assessment and Plan: Patient has a history of stroke. She presented with a complaint of syncope. She was evaluated by Neurology. CT and MRI of the head reviewed showing old infarcts involving the right basal ganglia, right internal capsule, left frontal lobe, left insula and left temporal lobe. Neurology consulted and was concerned about territorial stroke possibly posterior circulation. [place] patient could benefit from anticoagulation therapy given other comorbid conditions. No home medications listed on admission. She will benefit with aspirin. Patient with left carotid stenosis noted as well with plans for medical management. Statin started. Telemetry showing no acute dysrhythmias. Patient was on no anti-platelet therapy on admission. Anti-platelet therapy on hold due to recent GI bleeding from AVMs. Consultation with cardiology was done and loop recorder for 1 month was recommended. Appreciate neurology input. (4) Carotid stenosis: Code(s): I65.29 - Occlusion and stenosis of unspecified carotid artery Status: Acute Assessment and Plan: As above (5) Anemia: Code(s): D64.9 - Anemia, unspecified Status: Acute Assessment and Plan: Hgb dropped to 6.5 early in her hospital course. Guaiac positive in the ED. EGD 08/11 showing nonerosive reflux disease, gastric AVMs and duodenal erosions. There was stigmata of bleeding from the AVMs. The AVMs were cauterized. This was felt to be the etiology of her anemia. Colonoscopy showed internal hemorrhoids, diverticulosis and a colonic mass that was biopsied. Pathology as mentioned above. This may have contributed to her anemia as well. She was transfused. Hemoglobin climbed to the 7-8 range there remains stable. She was treated with iron. (6) Weight loss: Onset Date: ~06/2021 Code(s): R63.4 - Abnormal weight loss Status: Acute Assessment and Plan: Likely secondary to adenocarcinoma of the colon. Prealbumin is 13.1. We encouraged oral intake. (7) Acute kidney failure: Onset Date: ~07/2021 Code(s): N17.9 - Acute kidney failure, unspecified Status: Acute Assessment and Plan: Baseline kidney function is unknown. Her crea
[2021-08-18 12:00] VITALS: PULSE 70
--- NOTE | 2021-08-18 12:41 | PCOTNOTE ---
Attempted to see patient this pm, however patient declined stating, No, I'm trying to sleep.
--- NOTE | 2021-08-18 13:52 | PM.PNGS ---
Progress Note: A&P Assessment and Plan (1) Adenocarcinoma of sigmoid colon: Onset Date: ~07/2021 Code(s): C18.7 - Malignant neoplasm of sigmoid colon Status: Acute Assessment and Plan: Mass in the mid sigmoid colon on colonoscopy. This is not obstructing and no evidence of metastatic disease on CT. CEA elevated at 39.0 She is tolerating a diet and her bowels are moving. With her multiple co-morbidities and current stenosis of the left carotid artery, she would be a high risk surgical candidate. Dr. Dodson has evaluated the patient and plans to follow-up with her as an outpatient to further discuss her treatment options. If she and her family decide they would like to proceed with surgical resection, then she can follow-up with Dr. Ramirez after seeing Dr. Dodson. If she does choose to move forward with surgery, then we would also recommend an evaluation from a vascular surgeon to consider intervention of the left carotid stenosis to prevent possible further stroke at the time of general anesthesia. Okay from our standpoint to discharge the patient when okay with other services. (2) Hypertension: Onset Date: Unknown Code(s): I10 - Essential (primary) hypertension Status: Acute (3) Anemia: Code(s): D64.9 - Anemia, unspecified Status: Acute (4) Acute kidney failure: Onset Date: ~07/2021 Code(s): N17.9 - Acute kidney failure, unspecified Status: Acute Assessment and Plan: Improved. Nephrology following. (5) Tobacco dependence: Onset Date: Unknown Code(s): F17.200 - Nicotine dependence, unspecified, uncomplicated Status: Acute Assessment and Plan: Cessation has been discussed, especially if considering surgery. (6) Urinary tract infection: Onset Date: ~07/2021 Code(s): N39.0 - Urinary tract infection, site not specified Status: Acute (7) COPD with emphysema: Code(s): J43.9 - Emphysema, unspecified Status: Acute Assessment and Plan: Increases risk for surgery. (8) Leukocytosis: Code(s): D72.829 - Elevated white blood cell count, unspecified Status: Acute Assessment and Plan: Improved, WBC normal today. Unclear etiology. ID was consulted and suggests possible lower GI source associated with her malignancy. Continue abx per ID. Additional Plan I have discussed the patient's case and plan of care with Dr. Ramirez. Subjective Subjective Date/Time Seen: 08/18/21 12:52 Patient reports: no new complaints Interval history: Patient seen and examined. She is alert but confused, so her history is limited. She denies any abdominal pain, nausea, or vomiting. She reports tolerating a diet. She is currently soiled on my exam with a large BM present in the bed. The nurse is gathering supplies to clean her up. No specific complaints at this time. No family at the bedside. Review of Systems Review of Systems: ROS unobtainable: Yes unobtainable due to medical condition Exam Const: General: alert and awake Nutritional Appearance: malnourished and thin Orientation/consciousness: confusion (hx dementia) GI: Inspection: non-distended GI Palp: Yes Soft to palpation, No Tenderness to palpation present (GI), No Guarding due to palpation present (GI) and No Rebound tenderness present Auscultation: normal bowel sounds Skin: General skin exam: normal color Neuro: General: moves all extremities and confusion (hx dementia) Extrem: General: normal to inspection Right lower extremity: no edema Psych: Insight: Limited insight present (Psych) and Poor insight present (Psych) Judgement: Limited judgement present (Psych) and Poor judgement present (Psych) Objective Data Vital Signs Vital Signs: Vital Signs - 24 hr 08/17/21 14:00 08/17/21 16:00 08/17/21 20:00 Temperature 97.2 F L Pulse Rate 77 60 Respiratory Rate 16 Blood Pressure 110/60 Pulse Oximetry 100 94 08/17/21
[2021-08-18 14:00] VITALS: BP 135/81; PULSE 67; RESP 18; TEMP 36.2; O2SAT 100
== END 2021-08-18 17:30 | disposition home health service (06) | DRG 377 ==
LOC: ANHED 19:44 → ANH3MEDSUR 22:38
PROVIDERS: Emergency Medicine; Internal Medicine; Internal Medicine Cardiovascular Disease; Internal Medicine Gastroenterology; Internal Medicine Hematology & Oncology; Internal Medicine Nephrology; Physician Assistant; Admitting Provider Internal Medicine; Emergency Provider General Practice; Visit Provider Internal Medicine
PROC: 0DJ08ZZ Inspection of Upper Intestinal Tract, Via Natural or Artificial Opening Endoscopic (ICD-10-PCS; CPT 43235; principal; 2021-08-11 12:30)
DX: K31.811 Angiodysplasia of stomach and duodenum with bleeding (principal); A41.9 Sepsis, unspecified organism; N39.0 Urinary tract infection, site not specified; Z68.1 Body mass index [BMI] 19.9 or less, adult; N17.9 Acute kidney failure, unspecified; E46 Unspecified protein-calorie malnutrition; I67.89 Other cerebrovascular disease; C18.7 Malignant neoplasm of sigmoid colon; I13.0 Hypertensive heart and chronic kidney disease with heart failure and stage 1 through stage 4 chronic kidney disease, or unspecified chronic kidney disease; D62 Acute posthemorrhagic anemia; E86.0 Dehydration; I50.9 Heart failure, unspecified; I11.0 Hypertensive heart disease with heart failure; R63.0 Anorexia; J43.9 Emphysema, unspecified; D50.9 Iron deficiency anemia, unspecified; B85.0 Pediculosis due to Pediculus humanus capitis; F01.50 Vascular dementia, unspecified severity, without behavioral disturbance, psychotic disturbance, mood disturbance, and anxiety; Z86.73 Personal history of transient ischemic attack (TIA), and cerebral infarction without residual deficits; K26.9 Duodenal ulcer, unspecified as acute or chronic, without hemorrhage or perforation; K57.30 Diverticulosis of large intestine without perforation or abscess without bleeding; K64.8 Other hemorrhoids; B96.4 Proteus (mirabilis) (morganii) as the cause of diseases classified elsewhere; R63.4 Abnormal weight loss; N18.9 Chronic kidney disease, unspecified; F17.210 Nicotine dependence, cigarettes, uncomplicated; I65.29 Occlusion and stenosis of unspecified carotid artery
CPT/HCPCS: 36415; 36430; 70450; 70551; 71045; 74176; 76775; 80048; 80053; 80061; 80069; 80076; 81001; 82378; 82550; 82607; 82728; 82746; 82747; 82948; 83540; 83550; 83605; 83615; 83735; 83921; 84134; 84443; 84466; 84484; 85014; 85018; 85025; 85027; 85610; 85730; 86592; 86850; 86900; 86901; 86920; 87040; 87077; 87081; 87086; 87088; 87186; 88305; 93005; 93306; 93880; 96365; 97110; 97162; 97165; 97535; 99285; A9270; C9113; G0378; J0696; J1756; J2543; J2704; J3475; J7030; J7050; J7120; P9016

== ENCOUNTER 2022-08-12 21:44 | Inpatient (IN) | payer OTHER, SELFPAY ==
[2022-08-12] VITALS (15 sets, daily range): BP systolic 108–135; BP diastolic 74–93; PULSE 91–102; RESP 26–30; TEMP 36.7; O2SAT 98–100
--- NOTE | ~2022-08-12 | US_ITS ---
EXAMINATION: US renal BI DATE: 08/14/2022 10:55 INDICATION: Elevated creatinine TECHNIQUE: Multiple ultrasound grayscale images of the kidneys were obtained. COMPARISON: None. FINDINGS: The right kidney measures 9.0 x 3.6 x 4.2 cm. 3.3 cm anechoic cyst at the upper pole of the right kid reinier. The left kidney measures 7.2 x 2.8 x 3.4 cm. Similar anechoic cyst at the mid left kidney. The k idneys demonstrate normal echogenicity. There is no hydronephrosis in either kidney. No stones ident ified. The bladder is normal. IMPRESSION: 1. Mild bilateral renal atrophy likely related to age with no hydronephrosis.. Reviewed, dictated and finalized at location A.
--- NOTE | ~2022-08-12 | XR_ITS ---
EXAMINATION: XR chest 1V portable DATE: 08/12/2022 22:52 INDICATION: Shortness of breath. TECHNIQUE: A single frontal view of the chest was obtained. COMPARISON: Chest single view 08/15/2021, CT abdomen and pelvis 08/13/2021 FINDINGS: The lungs are hyperexpanded, consistent with emphysema. There is a diffuse interstitial pat tern, consistent with mild pulmonary edema. No pleural effusion or pneumothorax. The heart size is no rmal. IMPRESSION: 1. Mild pulmonary edema. 2. Emphysema. Reviewed, dictated and finalized at location A.
--- NOTE | ~2022-08-12 | XR_ITS ---
EXAMINATION: XR chest 2V DATE: 08/14/2022 08:36 INDICATION: Congestive heart failure exacerbation. TECHNIQUE: frontal and lateral views of the chest were obtained. COMPARISON: Chest radiograph dated 08/12/2022 FINDINGS: Hyperexpansion of lungs with increased retrosternal clear space and flattening of the diaphragm which can be seen with emphysema. Worsening interstitial and airspace opacities in the right upper lobe. B lunting at the costophrenic angles and posterior sulci consistent with small bilateral pleural effusi ons. No pneumothorax. Heart size within normal limits for AP technique. 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 IMPRESSION: 1. Increasing interstitial and airspace opacities in the right upper lobe which could be seen with ei ther pneumonia or localized pulmonary edema which can be seen due to mitral regurgitation. 2. Small bilateral pleural effusions. 3. Appearance suggestive but not diagnostic of COPD. Reviewed, dictated and finalized at location A. IMPRESSION: 1. Increasing interstitial and airspace opacities in the right upper lobe which could be seen with either pneumonia or localized pulmonary edema which can be seen due to mitral regurgitation. 2. Small bilateral pleural effusions. 3. Appearance suggestive but not diagnostic of COPD.
--- NOTE | ~2022-08-12 | XR_ITS ---
EXAMINATION: XR chest 1V portable INDICATION: Shortness of breath TECHNIQUE: Portable AP chest at 0908 hours COMPARISON: 08/14/2022 FINDINGS: The patient is rotated. There are persistent airspace opacities of the right mid and upper lung zones without significant change. The lungs are hyperinflated. No pleural effusion or pneumothor ax. The heart size is normal. IMPRESSION: 1. Persistent opacities of the right mid and upper lung zones without significant change, consistent with pulmonary edema versus pneumonia. Reviewed, dictated and finalized at location F. IMPRESSION: 1. Persistent opacities of the right mid and upper lung zones without significa nt change, consistent with pulmonary edema versus pneumonia.
--- NOTE | ~2022-08-12 | CT_ITS ---
EXAMINATION: CT brain wo con DATE: 08/13/2022 01:00 INDICATION: Altered mental status TECHNIQUE: Computed tomography (CT) of the head was performed without intravenous contrast. The dose- length product was 681.00 mGy-cm. Automated exposure control and iterative reconstruction technique w ere employed. COMPARISON: CT dated 08/09/2021 FINDINGS: Chronic right lacunar infarctions. There are scattered severe periventricular and subcortic al white matter changes, most likely related to small vessel ischemic disease (microangiopathy). No v entriculomegaly or midline shift. Basilar cisterns are patent. There is intracranial atherosclerosis. No acute infarction, hemorrhage or mass. There is mucosal thickening of the right maxillary and the ethmoid sinuses. No depressed skull fractures. IMPRESSION: 1. No acute intracranial abnormality. 2: Chronic right lacunar infarctions. 3: Chronic age-related findings. Reviewed, dictated and finalized at location A.
--- NOTE | 2022-08-12 22:23 | ECG_ITS ---
Measurements Intervals [place] Rate: 100 P: 66 OR: 166 QRS: 20 QRSD: 82 T: 180 QT: 346 QTc: 447 Interpretive Statements SINUS TACHYCARDIA LEFT VENTRICULAR HYPERTROPHY AND ST-T CHANGE [VOLTAGE CRITERIA PLUS ST/T ABNORMALITY] SMALL NONDIAGNOSTIC INFERIOR Q-WAVES COMPARED TO ECG 08/15/2021 04:52:20 NO SIGNIFICANT CHANGE T Electronically Signed On 08-13-2022 13:57:32 CDT by Robin Rosen M.D.
[2022-08-12] MEDS: ALBUTEROL SULFATE NEB 2.5 MG/3 ML INH 5 MG INHALATION (22:51)
[2022-08-12] MEDS: methylPREDNISolone SOD SUCC 125 MG VIAL IV PUSH (23:06)
[2022-08-12] MEDS: MAGNESIUM SULF 2 GM/WATER 50ML 2 GM/50 ML BAG IVPB (23:06)
[2022-08-12 23:07] LABS: Basophils Percent Auto 0.3 % (0.2-1.2); Eosinophils Absolute Auto 0.1 K/mm3 (0-0.3); Eosinophils Percent Auto 0.9 % (0-4.4); Hematocrit 29.1 % (37.0-47.0); Hemoglobin 8.8 g/dL (12.0-15.0); Immature Granulocyte Absolute 0.06 K/mm3 (0.00-0.031); Immature Granulocyte Percent A 0.6 % (0-0.5); Lymphocytes Absolute Auto 1.16 K/mm3 (0.9-3.2); Lymphocytes Percent Auto 12.2 % (18.3-44.2); Mean Corpuscular HGB Conc 30.2 g/dl (32-36); Mean Corpuscular Hemoglobin 31.8 pg (26-34); Mean Corpuscular Volume 105.1 fl (80-100); Mean Platelet Volume 10.6 fl (7.4-10.4); Monocytes Absolute Auto 0.6 K/mm3 (0.1-0.6); Monocytes Percent Auto 6.3 % (2.6-8.5); Neutrophils Absolute Auto 7.5 K/mm3 (1.3-6.7); Neutrophils Percent Auto 79.7 % (45.5-73.1); Platelet Count Result 286 k/mm3 (150-375); Red Blood Count 2.77 M/mm3 (4.2-5.4); White Blood Count 9.5 K/mm3 (4.5-10.0)
[2022-08-12 23:08] LABS: Fractional Inspired Oxygen 21 %; HCO3 VBG 19.9 mEq/l (24.0-30.0); PCO2 VBG 42.8 mmHg (42.0-48.0); PO2 VBG 33.2 mmHg (35.0-45.0); pH VBG 7.286 (7.300-7.400)
--- NOTE | 2022-08-12 23:10 | PM.IMHP ---
H&P: HPI History of Present Illness Date/Time: 08/12/22 23:10 Chief Complaint: shortness of breath Narrative: This is an 82-year-old female with past medical history significant for COPD patient presents to the emergency room due to shortness of breath at the time of my visit patient is on BiPAP and she is unable to give any history which has been obtained upon reviewing medical records and discussion with emergency room physician. at the time of my visit patient was on BiPAP. Preliminary workup was significant for brain natriuretic peptide 91165, BUN 35 creatinine 2.4 creatinine 0.340 chest x-ray: IMPRESSION: 1. Mild pulmonary edema. 2. Emphysema. Review of Systems Review of Systems: ROS unobtainable: Yes unobtainable due to medical condition PMFSH Past Medical History Medical History (Updated 08/13/22 @ 02:17 by Mamadou Chinchilla MD) Abnormal results of kidney function studies CHF (congestive heart failure) COPD (chronic obstructive pulmonary disease) Hypertension (Unknown) Surgical History Surgical History (System 04/22/22 @ 14:29 by Dixie Lopez) Hx of cataract surgery Family History Family History Mother Diabetes mellitus Social History Social History (System 04/22/22 @ 14:29 by Dixie Lopez) Smoking status: Current every day smoker Alcohol intake: never Substance use: never Substance use type: does not use Spiritual care concerns: No Meds Home Medications and Allergies Home Medications Medication Instructions Recorded Confirmed Type albuterol 90 mcg/actuation aerosol 180 mcg inhalation Q4H PRN 08/13/22 08/13/22 History inhaler Shortness Of Breath cephalexin 500 mg capsule 500 mg PO BID 08/13/22 08/13/22 History ergocalciferol (vitamin D2) 1,250 1,250 mcg PO WEEKLY 08/13/22 08/13/22 History mcg (50,000 unit) capsule ipratropium 0.5 mg-albuterol 3 mg 3 ml inhalation Q4H PRN Shortness 08/13/22 08/13/22 History (2.5 mg base)/3 mL nebulization Of Breath soln megestrol 400 mg/10 mL (40 mg/mL) 400 mg PO DAILY 08/13/22 08/13/22 History oral suspension mirtazapine 15 mg tablet 15 mg PO DAILY 08/13/22 08/13/22 History multivitamin with iron 1 tablet PO DAILY 08/13/22 08/13/22 History prednisone 20 mg tablet 20 mg PO DAILY 08/13/22 08/13/22 History Allergies Allergy/AdvReac Type Severity Reaction Status Date / Time lidocaine Allergy Unknown Unknown Verified 08/12/22 22:05 procaine Allergy Unknown Unknown Verified 08/12/22 22:05 Vital Signs Vital Signs - 24 hr 08/12/22 21:59 08/12/22 21:59 08/12/22 21:59 Temperature 98.1 F Pulse Rate 95 95 Respiratory Rate 28 H Blood Pressure 135/93 H Pulse Oximetry 100 Oxygen Delivery Room Air Room Air Exam Narrative: patient laying in a stretcher Const: General: comfortable, well developed, acute distress mild, ill appearing, patient obtunded, tired appearing, average body habitus and thin Nutritional Appearance: average body habitus Orientation/consciousness: oriented to person HENMT: Head: normal to inspection, normocephalic and atraumatic Ears: hearing grossly normal bilaterally Face/Nose/Sinus: normal facial exam Face and sinus: normal facial exam Eyes: General: appearance normal, both eyes and all related structures Pupils: Equal, round and reactive pupils present EOM: EOMs intact bilaterally Neck: Neck: full ROM, no lymphadenopathy and no JVD Thyroid: thyroid normal Lymphatic: no lymphadenopathy noted Resp: Effort & Inspection: normal respiratory effort, no grunting, not labored, no retractions, not tachypneic and other ( on BiPAP) Auscultation: clear to auscultation bilaterally Cardio: Jugular venous distension: no JVD Rate: regular rate Rhythm: regular rhythm Heart sounds: S1 normal heart sound present and S2 normal heart sound present GI: Inspection: normal to inspection GI Palp: Yes Soft to palpation and Yes No hepat
[2022-08-12 23:11] LABS: Device ROOM AIR
[2022-08-12 23:16] LABS: Alanine Aminotransferase 33 U/L (6-35); Albumin Level 3.5 g/dL (3.5-5.1); Alkaline Phosphatase 86 U/L (38-126); Anion Gap 10 mmol/L (8-16); Aspartate Amino Transferase 33 U/L (14-36); Bilirubin,Total 0.3 mg/dL (0.2-1.3); Blood Urea Nitrogen 39 mg/dL (7-17); Calcium 8.2 mg/dL (8.4-10.2); Carbon Dioxide 19 mmol/L (22-30); Chloride 120 mmol/L (98-107); Estimated CRCL calculation 15 ml/min; Estimated Glomerular Filt Rate 19; Glucose 175 mg/dL (65-110); Lactic Acid Reflex 2.3 mmol/L (0.7-2.0); Sodium 149 mmol/L (137-145)
--- NOTE | 2022-08-12 23:19 | ED.SOB ---
HPI - SOB/Dyspnea General Chief Complaint: Shortness of Breath/Dyspnea Stated Complaint: SOB Time Seen by Provider: 08/12/22 22:36 History of Present Illness HPI Narrative: HPI limited due to patient's altered mental status This is an 82-year-old female with past medical history of COPD and dementia, brought in from her [place] [facility] for wheezing and shortness of breath. Per EMS report, the patient had difficulty breathing and wheezing that did not improve with albuterol nebs. Patient was given additional 2 neb treatments in route. O2 sats remained in the 90s on room air. Patient's daughter is at bedside but is unable to provide additional history Related Data Allergies Allergy/AdvReac Type Severity Reaction Status Date / Time lidocaine Allergy Unknown Unknown Verified 08/12/22 22:05 procaine Allergy Unknown Unknown Verified 08/12/22 22:05 Review of Systems Review of Systems: Review of systems limited due to patient's altered mental status RESPIRATORY: Wheezing, dyspnea PMFSH Past Medical History Medical History (Updated 08/13/22 @ 02:17 by Mamadou Chinchilla MD) Abnormal results of kidney function studies CHF (congestive heart failure) COPD (chronic obstructive pulmonary disease) Hypertension (Unknown) Surgical History Surgical History (System 04/22/22 @ 14:29 by Dixie Lopez) Hx of cataract surgery Family History Family History Mother Diabetes mellitus Social History Social History (System 04/22/22 @ 14:29 by Dixie Lopez) Smoking status: Former smoker Alcohol intake: unknown Substance use: never Spiritual care concerns: No Exam Narrative: GENERAL: Well-developed, cachectic in respiratory distress HEAD: Normocephalic, atraumatic. EYES: PERRLA and EOMI. ENT: Nares clear, no rhinorrhea or epistaxis. Mucous membranes dry. Oropharynx without tonsillar hypertrophy exudate or other lesions. NECK: Supple. No adenopathy or masses. No carotid bruits or JVD CHEST: Use expiratory wheeze with some amount of inspiratory wheeze, somewhat decreased aeration No respiratory distress. No rales or rhonchi HEART: Regular rate and rhythm. No murmur heard. Normal peripheral pulses. ABDOMEN: Soft, nontender, nondistended, normal active bowel sounds. EXTREMITIES: Normal range of motion. Trace bilateral lower extremity edema SKIN: Warm, dry, no rash. NEURO: Moving all 4, strength 5-5 in all extremities, alert and tracking though does not answer questions Course Course Emergency Course: 23:27 -VBG demonstrates what appears to be a metabolic acidosis, however by Savage formula patient CO2 is greater than expected. Patient has a normal anion gap with a creatinine of 2.5 with a baseline of 2. Lactic acid is 2.3. Chest x-ray shows changes concerning for mild pulmonary edema. 00:46 -BNP 27,000, troponin 0.34. Bedside ultrasound shows decreased left ventricular squeeze without right ventricular strain pattern. I suspect the patient's symptoms are related to new CHF exacerbation. Repeat VBG shows pH normalization to 7.3 with PCO2 down to 36.6 and bicarb of 18. Discussed patient with hospitalist, Dr. Grossman who accepts admission. 00:55 - Discussed patient with patrol conductor, Dr. Sandhu who will consult. Vital Signs Vital signs: Vital Signs Pulse Rate 92 08/12/22 21:51 Respiratory Rate 27 H 08/12/22 21:51 Temperature 98.1 F 08/12/22 21:59 Pulse Rate 94 08/13/22 01:47 Respiratory Rate 24 H 08/13/22 01:47 Blood Pressure 198/94 H 08/13/22 01:47 Pulse Oximetry 100 08/13/22 01:47 Oxygen Delivery BiPAP 08/13/22 00:58 MDM - SOB/Dyspnea MDM Narrative Medical decision making narrative: Plan: Labs, BiPAP, nebs, imaging, EKG, reassess Differential Diagnosis Differential diagnosis: Likely acute exacerbation of chronic obstructive airways disease, congestive heart failure, community acquired pneumonia and other (COVID, flu,
--- NOTE | 2022-08-12 23:31 | PC.NURSE ---
Called lab to add on BNP and Troponin to blood in lab. Fredrick in lab notified
[2022-08-12 23:43] LABS: Influenza A QL RT-PCR Negative (Negative); Influenza B QL RT-PCR Negative (Negative); SARS-CoV-2 RNA PCR Negative
[2022-08-12 23:57] LABS: NT Pro B Type Natriuretic Pept 27500 pg/mL (5-100); Troponin I 0.347 ng/mL (0.000-0.034)
[2022-08-13] VITALS (24 sets, daily range): BP systolic 110–198; BP diastolic 59–94; PULSE 85–109; RESP 0–31; TEMP 36.4–37.1; O2SAT 91–100; BMI 17.0
--- NOTE | 2022-08-13 | ECHO_ITS ---
Patient Info Name: Bridget Alaniz Age: 82 years : 1940 Gender: Female Ht: 66 in Wt: 123 lbs BSA: 1.61 m2 HR: 88 bpm BP: 157 / 59 mmHg Heart Rhythm: Sinus Rhythm Technical Quality: Fair Exam Date: 08/13/2022 8:30 AM Exam Location: [facility] Pulmonary Patient Status: Outpatient Admit Date: 08/13/2022 Staff Ordering Physician: Deb Grossman MD Neurology Technologist: Jovana Dale RDCS Attending Provider: Deb Grossman MD Referring Physician: Ngoc BATES; Exam Type: CA echo doppler color flow Study Info Indications - CHF Complete two-dimensional, color flow and Doppler transthoracic echocardiogram is performed. Summary 1. Complete two-dimensional, color flow and Doppler transthoracic echocardiogram is performed. 2. Left ventricular chamber dimension is normal. 3. Left ventricular systolic function is moderately reduced, estimated at 40-45%. 4. The left ventricular diastolic function is abnormal. 5. E/e' 26 is significantly elevated. 6. Left atrial chamber dimension is moderately enlarged. 7. There is mild aortic valve sclerosis. 8. The mitral valve has mildly thickened leaflets and moderately calcified annulus. 9. There is moderate to severe mitral valve regurgitation. 10. There is trace tricuspid valve regurgitation. Left Ventricle E/e' 26 is significantly elevated. Left ventricular chamber dimension is normal. Left ventricular systolic function is moderately reduced, estimated at 40-45%. The left ventricular diastolic function is abnormal. Right Ventricle Right ventricular systolic function is normal and with normal TAPSE 1.9 cm. Right ventricular chamber dimension is normal. Left Atria Left atrial chamber dimension is moderately enlarged. Right Atria Right atrial chamber dimension is normal. Aortic Valve The aortic valve is trileaflet. There is mild aortic valve sclerosis. There is no aortic valve stenosis. There is no aortic valve regurgitation. Pulmonic Valve There is no pulmonic regurgitation. Mitral Valve The mitral valve has mildly thickened leaflets and moderately calcified annulus. There is no mitral valve stenosis. There is moderate to severe mitral valve regurgitation. Tricuspid Valve There is trace tricuspid valve regurgitation. RVSP is not calculated due to an inadequate TR jet. Pericardium/Pleural There is no pericardial effusion. Inferior Vena Cava Normal inferior vena cava with >50% collapse upon inspiration consistent with normal right atrial pressure, 5 mmHg. Aorta The aortic root size at the sinus of Valsalva is normal. Left Ventricular Outflow Tract Name Value Normal LVOT 2D LVOT Diameter 2.0 cm LVOT Doppler LVOT Peak Gradient 3 mmHg LVOT Mean Gradient 1 mmHg LVOT VTI 15 cm LVOT VTI/AV VTI Ratio 0.6 LVOT Stroke Volume 47 ml LVOT CO 4.6 l/min LVOT CI 2.8 l/min/m2 Pulmonic Valve
[2022-08-13 00:34] LABS: Fractional Inspired Oxygen 24 %; PCO2 VBG 36.6 mmHg (42.0-48.0); PO2 VBG 55.6 mmHg (35.0-45.0); pH VBG 7.309 (7.300-7.400)
[2022-08-13 00:36] LABS: Device NON-INVASIVE VENT; Non-Invasive Expiratory Pressure 6 CMH2O; Non-Invasive Inspiratory Pressure 12 CMH2O; Non-Invasive Vent Rate 18 /MIN
[2022-08-13 00:50] LABS: D Dimer 3.83 ug/mL (<0.48)
--- NOTE | 2022-08-13 01:48 | PC.NURSE ---
Called and spoke with Tamela on IMU to notify SBAR has been sent for pt
--- NOTE | 2022-08-13 03:15 | ADMGEN ---
This patient, Bridget Alaniz, was admitted to IMU Room 207-01. Patient/family oriented to hospital policies and general routines including ID bracelet, bed and alarms, visiting hours, pain management, procedures, bathroom and other care routines, personal items, smoking policy, room service/diet, and visiting hours. Information on how to activate the Rapid Response Team has been discussed. Patient/Family are encouraged to report perceived risks to care and to ask questions if they do not understand what they are told or what they should do.
[2022-08-13 03:36] LABS: Reflex Lactic Acid Yes or No Add Lactic
[2022-08-13 05:10] LABS: Troponin I 0.299 ng/mL (0.000-0.034)
[2022-08-13 05:11] LABS: Lactic Acid 3.2 mmol/L (0.7-2.0)
[2022-08-13 07:03] LABS: Troponin I 0.282 ng/mL (0.000-0.034)
--- NOTE | 2022-08-13 09:07 | PM.CNCAR ---
Assessment and Plan Assessment and plan (1) CHF exacerbation: Code(s): I50.9 - Heart failure, unspecified Status: Acute Assessment and Plan: CXR with mild pulm edema. NTproBNP 27,500. This is probably acute on chronic systolic and diastolic heart failure. 08/10/21 Echo: EF 45-50%, grade I diastolic dysfunction (E/e' 17), mod LAE, mild-mod MR, RVSP 45 mmHg. Check echo. Diuresis with Lasix 20 mg IV BID. Monitor renal function and electrolytes. (2) Elevated troponin: Code(s): R77.8 - Other specified abnormalities of plasma proteins Status: Acute Assessment and Plan: Moderately elevated up to 0.347 but trending down. Probably related to volume overload and CKD. Check echo for wall motion abnormalities. (3) COPD (chronic obstructive pulmonary disease): Code(s): J44.9 - Chronic obstructive pulmonary disease, unspecified Status: Acute (4) Tobacco dependence: Onset Date: Unknown Code(s): F17.200 - Nicotine dependence, unspecified, uncomplicated Status: Acute Assessment and Plan: Counseled regarding smoking cessation. History of Present Illness History of Present Illness Consult date/time: 08/13/22 09:07 Reason For Visit: CHF exacerbation, Dyspnea Narrative: 81 yr old woman who I saw once in hospital on 08/10/21 for syncope. 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 She is demented and only gave me her name and no other information.?She was brought to ER due to sob and wheezing, not responding to neb treatments. She mokes 2-3 cigarettes per day down from 2 ppd.? Denies chest pain, orthopnea, PND, edema, dizziness, palpitations. Review of Systems Review of Systems: ROS unobtainable: Yes unobtainable due to medical condition [facility] Past Medical History Medical History (Updated 08/13/22 @ 02:17 by Mamadou Chinchilla MD) Abnormal results of kidney function studies CHF (congestive heart failure) COPD (chronic obstructive pulmonary disease) Hypertension (Unknown) Surgical History Surgical History (System 04/22/22 @ 14:29 by Dixie Lopez) Hx of cataract surgery Family History Family History Mother Diabetes mellitus Social History Social History (System 04/22/22 @ 14:29 by Dixie Lopez) Smoking status: Current every day smoker Alcohol intake: never Substance use: never Substance use type: does not use Spiritual care concerns: No Meds Home Medications and Allergies Home Medications Medication Instructions Recorded Confirmed Type albuterol 90 mcg/actuation aerosol 180 mcg inhalation Q4H PRN 08/13/22 08/13/22 History inhaler Shortness Of Breath cephalexin 500 mg capsule 500 mg PO BID 08/13/22 08/13/22 History ergocalciferol (vitamin D2) 1,250 1,250 mcg PO WEEKLY 08/13/22 08/13/22 History mcg (50,000 unit) capsule ipratropium 0.5 mg-albuterol 3 mg 3 ml inhalation Q4H PRN Shortness 08/13/22 08/13/22 History (2.5 mg base)/3 mL nebulization Of Breath soln megestrol 400 mg/10 mL (40 mg/mL) 400 mg PO DAILY 08/13/22 08/13/22 History oral suspension mirtazapine 15 mg tablet 15 mg PO DAILY 08/13/22 08/13/22 History multivitamin with iron 1 tablet PO DAILY 08/13/22 08/13/22 History prednisone 20 mg tablet 20 mg PO DAILY 08/13/22 08/13/22 History Allergies Allergy/AdvReac Type Severity Reaction Status Date / Time lidocaine Allergy Unknown Unknown Verified 08/12/22 22:05 procaine Allergy Unknown Unknown Verified 08/12/22 22:05 Vital Signs Vital Signs - 24 hr 08/12/22 21:59 08/12/22 21:59 08/12/22 21:59 Temperature 98.1 F Pulse Rate 95 95 Respiratory Rate 28 H Blood Pressure 135/93 H Pulse Oximetry 100 Oxygen Delivery Room Air Room Air Oxygen Flow Rate 08/12/22 23:00 08/12/22 23:02 08/12/22 23:16 Temperature Pulse Rate 97 97 101 H Respiratory Rate 26 H 26
[2022-08-13 09:43] LABS: Anion Gap 17 mmol/L (8-16); Blood Urea Nitrogen 35 mg/dL (7-17); Calcium 8.5 mg/dL (8.4-10.2); Carbon Dioxide 16 mmol/L (22-30); Chloride 120 mmol/L (98-107); Estimated CRCL calculation 13 ml/min; Estimated Glomerular Filt Rate 19; Glucose 164 mg/dL (65-110); Potassium 4.4 mmol/L (3.4-5.0); Sodium 153 mmol/L (137-145)
--- NOTE | 2022-08-13 12:22 | PM.IMPN ---
Progress Note: A&P Assessment and Plan (1) Acute CHF: Code(s): I50.9 - Heart failure, unspecified Status: Acute Assessment and Plan: EF 45-50%. . Grade 1 diastolic dysfunction. Elevated BNP noted. Appreciate Cardiology input. Echo pending. Continue Lasix. Monitor electrolytes. . (2) Acute kidney injury superimposed on CKD: Code(s): N17.9 - Acute kidney failure, unspecified; N18.9 - Chronic kidney disease, unspecified Status: Acute Assessment and Plan: Creatinine baseline is 2.0. Her creatinine is 2.0 Likely related to underlying CHF. (3) Megaloblastic anemia: Code(s): D53.1 - Other megaloblastic anemias, not elsewhere classified Status: Acute (4) Tobacco dependence: Onset Date: Unknown Code(s): F17.200 - Nicotine dependence, unspecified, uncomplicated Status: Acute (5) Adenocarcinoma of sigmoid colon: Onset Date: ~07/2021 Code(s): C18.7 - Malignant neoplasm of sigmoid colon Status: Acute Assessment and Plan: History (6) NSTEMI (non-ST elevated myocardial infarction): Code(s): I21.4 - Non-ST elevation (NSTEMI) myocardial infarction Status: Acute Assessment and Plan: cardiology following (7) COPD (chronic obstructive pulmonary disease): Code(s): J44.9 - Chronic obstructive pulmonary disease, unspecified Status: Acute Assessment and Plan: patient appears to be in acute exacerbation. Nebulizers steroids Plan patient is DNR Subjective Date/time seen: 08/13/22 12:22 Patient looks very frail. Patient has significant wheeze on examination and appears short of breath. Appreciate Cardiology input. V-tach noted this morning as well. Cardiology is aware. Exam Narrative: General: alert and oriented Psych: appropriate mood nad affect Eyes: PERRLA Neck: Trachea midline, no new lesions Skin: no changes Lungs: CTA Cardiac: Normal S1,S2, no MGR ABD: soft, nd, nt, nbs Ext: no new lesions, no cce Vasc: Pulses intact Objective Data Vital Signs Vital Signs: Vital Signs - 24 hr 08/12/22 21:59 08/12/22 21:59 08/12/22 21:59 Temperature 98.1 F Pulse Rate 95 95 Respiratory Rate 28 H Blood Pressure 135/93 H Pulse Oximetry 100 Oxygen Delivery Room Air Room Air Oxygen Flow Rate 08/12/22 23:00 08/12/22 23:02 08/12/22 23:16 Temperature Pulse Rate 97 97 101 H Respiratory Rate 26 H 26 H Blood Pressure Pulse Oximetry 100 Oxygen Delivery BiPAP Oxygen Flow Rate 08/12/22 21:51 08/12/22 22:00 08/12/22 22:01 Temperature Pulse Rate 92 94 93 Respiratory Rate 27 H 30 H 29 H Blood Pressure 125/77 Pulse Oximetry 98 100 Oxygen Delivery Oxygen Flow Rate 08/12/22 22:15 08/12/22 22:16 08/12/22 23:04 Temperature Pulse Rate 99 99 95 Respiratory Rate 29 H 27 H 28 H Blood Pressure 116/78 Pulse Oximetry 100 Oxygen Delivery Oxygen Flow Rate 08/12/22 23:15 08/12/22 23:16 08/12/22 23:30 Temperature Pulse Rate 91 92 98 Respiratory Rate 28 H 27 H 28 H Blood Pressure 118/82 Pulse Oximetry 100 100 100 Oxygen Delivery Oxygen Flow Rate 08/12/22 23:31 08/12/22 23:32 08/12/22 23:45 Temperature Pulse Rate 97 100 102 H Respiratory Rate 27 H 29 H 26 H Blood Pressure 108/74 Pulse Oximetry 100 100 100 Oxygen Delivery Oxygen Flow Rate 08/13/22 00:02 08/13/22 00:58 08/13/22 01:47 Temperature Pulse Rate 99 98 94 Respiratory Rate 27 H 31 H 24 H Blood Pressure 198/94 H Pulse Oximetry 100 100 100 Oxygen Delivery BiPAP Oxygen Flow Rate 08/13/22 00:15 08/13/22 00:16 08/13/22 01:00 Temperature Pulse Rate 96 98 Respiratory Rate 26 H 27 H 0 L Blood Pressure 116/78 Pulse Oximetry 98 99 91 Oxygen Delivery Oxygen Flow Rate 08/13/22 02:05 08/13/22 02:20 08/13/22 04:14 Temperature 97.6 F 98.7 F Pulse Rate 89 87 86 Respiratory Rate 24 H 26 H 20 Blood Pre
--- NOTE | 2022-08-13 15:00 | PCNSR ---
On 08/13/22, the student, Yomi Garcia, provided care and completed [facility] documentation on this patient. I have reviewed the student's documentation and agree with the findings.
[2022-08-13] MEDS: methylPREDNISolone SOD SUCC 40 MG VIAL IV PUSH ×2 (15:51→21:26)
[2022-08-13] MEDS: FUROSEMIDE INJ 40 MG/4 ML VIAL 20 MG IV PUSH (17:56)
[2022-08-13 18:40] LABS: Anion Gap 12 mmol/L (8-16); Blood Urea Nitrogen 40 mg/dL (7-17); Calcium 8.8 mg/dL (8.4-10.2); Carbon Dioxide 18 mmol/L (22-30); Chloride 121 mmol/L (98-107); Estimated CRCL calculation 12 ml/min; Estimated Glomerular Filt Rate 17; Glucose 182 mg/dL (65-110); Potassium 5.6 mmol/L (3.4-5.0); Sodium 151 mmol/L (137-145)
[2022-08-13] MEDS: CEFDINIR 300 MG CAPSULE PO (21:25)
[2022-08-14] VITALS (16 sets, daily range): BP systolic 106–143; BP diastolic 69–100; PULSE 77–100; RESP 16–28; TEMP 36.4–37.6; O2SAT 92–100
[2022-08-14 04:38] LABS: Basophils Percent Auto 0.1 % (0.2-1.2); Hematocrit 26.4 % (37.0-47.0); Hemoglobin 8.2 g/dL (12.0-15.0); Immature Granulocyte Absolute 0.12 K/mm3 (0.00-0.031); Immature Granulocyte Percent A 0.8 % (0-0.5); Lymphocytes Percent Auto 2.6 % (18.3-44.2); Mean Corpuscular HGB Conc 31.1 g/dl (32-36); Mean Corpuscular Hemoglobin 30.8 pg (26-34); Mean Corpuscular Volume 99.2 fl (80-100); Mean Platelet Volume 10.1 fl (7.4-10.4); Monocytes Absolute Auto 0.2 K/mm3 (0.1-0.6); Neutrophils Absolute Auto 14.9 K/mm3 (1.3-6.7); Neutrophils Percent Auto 95.5 % (45.5-73.1); Platelet Count Result 336 k/mm3 (150-375); Red Blood Count 2.66 M/mm3 (4.2-5.4); Red Cell Distribution Width 13.2 % (11.5-14.5); White Blood Count 15.6 K/mm3 (4.5-10.0)
[2022-08-14 04:48] LABS: Alanine Aminotransferase 30 U/L (6-35); Albumin Level 3.4 g/dL (3.5-5.1); Alkaline Phosphatase 85 U/L (38-126); Anion Gap 16 mmol/L (8-16); Aspartate Amino Transferase 33 U/L (14-36); Bilirubin,Total 0.3 mg/dL (0.2-1.3); Blood Urea Nitrogen 46 mg/dL (7-17); Carbon Dioxide 19 mmol/L (22-30); Chloride 120 mmol/L (98-107); Estimated CRCL calculation 11 ml/min; Estimated Glomerular Filt Rate 15; Glucose 132 mg/dL (65-110); Potassium 5.3 mmol/L (3.4-5.0); Sodium 155 mmol/L (137-145)
[2022-08-14 04:56] LABS: NT Pro B Type Natriuretic Pept > 35000 pg/mL (5-100)
[2022-08-14] MEDS: methylPREDNISolone SOD SUCC 40 MG VIAL IV PUSH ×3 (06:20→20:36)
--- NOTE | 2022-08-14 08:51 | PM.PNCARD ---
Progress Note: A&P Assessment and Plan (1) CHF exacerbation: Code(s): I50.9 - Heart failure, unspecified Status: Acute Assessment and Plan: This is probably acute on chronic systolic and diastolic heart failure. 08/10/21 Echo: EF 45-50%, grade I diastolic dysfunction (E/e' 17), mod LAE, mild-mod MR, RVSP 45 mmHg. 08/13/22 Echo: EF 40-45%, diastolic dysfunction (E/e' 26), mod LAE, mod MAC, mod-severe MR. NTproBNP up >35,000. CXR had shown mild pulm edema. On Lasix 20 mg IV BID. Check CXR this morning. She clinically looks dry. (2) Elevated troponin: Code(s): R77.8 - Other specified abnormalities of plasma proteins Status: Acute Assessment and Plan: Moderately elevated up to 0.347 but trending down. Probably related to volume overload and CKD. Echo shows no new wall motion abnormalities. (3) COPD (chronic obstructive pulmonary disease): Code(s): J44.9 - Chronic obstructive pulmonary disease, unspecified Status: Acute (4) Tobacco dependence: Onset Date: Unknown Code(s): F17.200 - Nicotine dependence, unspecified, uncomplicated Status: Acute Assessment and Plan: Counseled regarding smoking cessation. (5) Acute kidney injury superimposed on CKD: Code(s): N17.9 - Acute kidney failure, unspecified; N18.9 - Chronic kidney disease, unspecified Status: Acute Assessment and Plan: With worsening kidney function and associated hyperkalemia and hypernatremia, consider nephrology consultation. (6) Hyperkalemia: Code(s): E87.5 - Hyperkalemia Status: Acute (7) Hypernatremia: Code(s): E87.0 - Hyperosmolality and hypernatremia Status: Acute Subjective Date/time seen: 08/14/22 08:51 Interval history: Patient is demented and cannot give any useful information. Exam Const: General: alert and awake Orientation/consciousness: No oriented to place and No oriented to time Resp: Effort & Inspection: tachypneic Auscultation: no crackles, no rales, no rhonchi, no wheezes and diminished lung sounds Cardio: Rate: regular rate Rhythm: regular rhythm Heart sounds: no murmurs Peripheral pulses: dorsalis pedis present GI: GI Palp: No abdominal tenderness and Yes Soft to palpation Neuro: General: oriented to person, No oriented to place and No oriented to time Extrem: Right lower extremity: no edema Left lower extremity: no edema Objective Data Vital Signs Vital Signs: Vital Signs - 24 hr 08/13/22 11:36 08/13/22 11:39 08/13/22 12:00 Temperature 97.8 F Pulse Rate 93 87 Respiratory Rate 22 H Blood Pressure 159/74 H 175/90 H Pulse Oximetry 98 Oxygen Delivery Oxygen Flow Rate Fraction of Inspired Oxygen 08/13/22 12:00 08/13/22 14:00 08/13/22 12:00 Temperature Pulse Rate 87 106 H 91 Respiratory Rate 22 H Blood Pressure Pulse Oximetry 98 Oxygen Delivery Nasal Cannula Oxygen Flow Rate 1 Fraction of Inspired Oxygen 08/13/22 16:00 08/13/22 16:00 08/13/22 19:56 Temperature 98.7 F 97.7 F Pulse Rate 99 99 108 H Respiratory Rate 26 H 20 Blood Pressure 110/71 113/81 Pulse Oximetry 98 98 Oxygen Delivery Oxygen Flow Rate Fraction of Inspired Oxygen 08/13/22 20:00 08/13/22 20:00 08/13/22 22:00 Temperature Pulse Rate 109 H 94 Respiratory Rate Blood Pressure Pulse Oximetry 96 Oxygen Delivery Room Air Oxygen Flow Rate Fraction of Inspired Oxygen 08/13/22 23:48 08/14/22 00:00 08/14/22 00:00 Temperature 97.6 F Pulse Rate 100 91 Respiratory Rate 16 Blood Pressure 126/87 Pulse Oximetry 96 96 Oxygen Delivery Room Air Oxygen Flow Rate Fraction of Inspired Oxygen 08/14/22 02:00 08/13/22 22:02 08/13/22 22:02 Temperature Pulse Rate 99 92 92 Respiratory Rate 26 H 26 H Blood Pressure Pulse Oximetry 98 98 Oxygen Delivery BiPAP BiPAP Oxygen Flow Rate Fraction of Inspired Oxygen 08/14/22
[2022-08-14] MEDS: CEFDINIR 300 MG CAPSULE PO ×2 (09:47→20:36)
--- NOTE | 2022-08-14 09:59 | PM.CNNEP ---
Assessment and Plan Assessment and plan (1) CKD (chronic kidney disease): Code(s): N18.9 - Chronic kidney disease, unspecified Status: Acute Assessment and Plan: the patient has chronic kidney disease. Her creatinine was around 2 a year ago. The patient does have hypertension and congestive heart failure. She probably has some involvement of the blood pressure and of vascular disease in her chronic kidney disease. There other causes that are possible such as obstruction,. Get a renal ultrasound. The patient has a higher creatinine now. It is unclear whether this is acute or chronic. The creatinine has risen in the hospital while she was getting diuretics so it is possible that there is a pre renal component, may be from cardiac issues such as her severe mitral valve regurgitation. The patient also has a UTI. This may be playing some role in her higher creatinine as well. At this point will check urine electrolytes and a fractional excretion of urea, renal ultrasound, and a CPK. (2) Hypernatremia: Code(s): E87.0 - Hyperosmolality and hypernatremia Status: Acute Assessment and Plan: patient's sodium level is high. We can check a urine osmolality. Her urine specific gravity is high so I doubt that this is diabetes insipidus. Most likely this is poor free water intake, most likely because of her mental status. She will need some D5W. (3) Hyperkalemia: Code(s): E87.5 - Hyperkalemia Status: Acute Assessment and Plan: The patient has a high potassium as well. She is not on any medicine that would do this. She is not eating very well. Will check for endogenous sources of potassium such as rhabdomyolysis, GI bleed, and hemolysis. Will give her some lokelma (4) Metabolic acidosis: Code(s): E87.20 - Acidosis, unspecified Status: Acute Assessment and Plan: bicarbonate level is low. Her anion gap is 16, probably high for this debilitated lady with an albumin of only 3.4. Looking back in 2020, her baseline anion gap looks like it was more around 10. Even then, her bicarbonate level was 18 or 19. Show she has a fairly complex acid-base disorder. She looks like she has a baseline anion gap metabolic acidosis, possibly from her renal insufficiency. Now she has a mildly lower bicarb but higher anion gap and the delta anion gap is higher than the delta bicarb there for she has a superimposed metabolic alkalosis or at least less of a former non anion gap metabolic acidosis. Perhaps her poor cardiac output has led to chronic pre renal azotemia so her former chronic non anion gap metabolic acidosis got a little bit better because of contraction but now she is sick and has had anion gap metabolic acidosis. Will check beta hydroxybutyrate . She might have an element of starvation ketosis. Her lactic acid was a little bit high but not high enough to explain the anion gap. If her GFR were worse, she could possibly have an anion gap from uremic toxins. Will check a 24hour urine creatinine see if her kidneys are actually worse than they appear on paper. (5) CHF exacerbation: Code(s): I50.9 - Heart failure, unspecified Status: Acute Assessment and Plan: The patient has severe mitral regurgitation and a moderately poor LV. (6) Elevated troponin: Code(s): R77.8 - Other specified abnormalities of plasma proteins Status: Acute Assessment and Plan: Positive troponins are felt By Cardiology to be due to volume overload. (7) Anemia: Code(s): D64.9 - Anemia, unspecified Status: Acute Assessment and Plan: hemoglobin is 8.2. She had a high MCV at 1 point but is back to normal now. Possibly due to renal insufficiency. We can check irons B12 and folate as well. (8) Pyuria: Code(s): R82.81 - Pyuria Status: Acute Assessment and Plan: She has pyuria. Cultures grew Proteus. She
--- NOTE | 2022-08-14 10:48 | PM.IMPN ---
Progress Note: A&P Assessment and Plan (1) Acute CHF: Code(s): I50.9 - Heart failure, unspecified Status: Acute Assessment and Plan: admit to IMU gentle diuresis daily intake and output daily weights echocardiogram in a.m. Volume status does appear to be improved. Her respiratory status is also improved after diuretics. (2) Acute kidney injury superimposed on CKD: Code(s): N17.9 - Acute kidney failure, unspecified; N18.9 - Chronic kidney disease, unspecified Status: Acute Assessment and Plan: likely to be cardiorenal syndrome continue to monitor daily intake and output Appreciate Nephrology input. (3) Megaloblastic anemia: Code(s): D53.1 - Other megaloblastic anemias, not elsewhere classified Status: Acute Assessment and Plan: follow-up in outpatient setting (4) Tobacco dependence: Onset Date: Unknown Code(s): F17.200 - Nicotine dependence, unspecified, uncomplicated Status: Acute Assessment and Plan: nicotine patch as needed (5) NSTEMI (non-ST elevated myocardial infarction): Code(s): I21.4 - Non-ST elevation (NSTEMI) myocardial infarction Status: Acute Assessment and Plan: patient with elevated troponins continue to trend no acute EKG changes (6) Adenocarcinoma of sigmoid colon: Onset Date: ~07/2021 Code(s): C18.7 - Malignant neoplasm of sigmoid colon Status: Acute Assessment and Plan: History of (7) Hypernatremia: Code(s): E87.0 - Hyperosmolality and hypernatremia Status: Acute Assessment and Plan: appreciate nephrology input. Patient does need D5W (8) Hyperkalemia: Code(s): E87.5 - Hyperkalemia Status: Acute Assessment and Plan: leukemia given. This is likely related to the acute on chronic renal insufficiency. (9) Metabolic acidosis: Code(s): E87.20 - Acidosis, unspecified Status: Acute Assessment and Plan: Likely related to acute on chronic renal insufficiency. Appreciate Nephrology input. (10) Urinary tract infection: Onset Date: ~07/2021 Code(s): N39.0 - Urinary tract infection, site not specified Status: Acute Assessment and Plan: Oral antibiotics. Subjective Date/time seen: 08/14/22 10:48 patient appears to be breathing better today. Exam Const: General: comfortable, no acute distress, well developed, alert, awake, acute distress mild, ill appearing, patient obtunded, tired appearing, average body habitus and thin Nutritional Appearance: average body habitus and thin Orientation/consciousness: oriented to person, patient oriented x3 and patient obtunded HENMT: Head: normal to inspection, normocephalic and atraumatic Ears: hearing grossly normal bilaterally Face/Nose/Sinus: normal facial exam Face and sinus: normal facial exam Eyes: General: appearance normal, both eyes and all related structures Pupils: Equal, round and reactive pupils present EOM: EOMs intact bilaterally Neck: Neck: full ROM, no lymphadenopathy and no JVD Thyroid: thyroid normal Lymphatic: no lymphadenopathy noted Resp: Effort & Inspection: normal respiratory effort, able to speak in complete sentences, no grunting, not labored, no retractions, not tachypneic and other ( on BiPAP) Auscultation: clear to auscultation bilaterally Cardio: Jugular venous distension: no JVD Rate: regular rate Rhythm: regular rhythm Heart sounds: S1 normal heart sound present and S2 normal heart sound present GI: Inspection: normal to inspection : General: Yes deferred Skin: Rashes: no rashes Wounds: no wounds Neuro: General: oriented to person, patient oriented x3, CN's II-XI intact bilaterally, patient obtunded and Unable to assess gait Cranial nerves: Yes CN's II-XII intact bilaterally and Yes Equal, round and reactive pupils present Cognition (Neuro): normal cognition and abnormal cog
[2022-08-14] MEDS: SODIUM ZIRCONIUM CYCLOSILICATE 10 GM POWD.PACK PO ×2 (11:17→22:06)
[2022-08-14] MEDS: DEXTROSE 5% 1,000 ML 1,000 ML 100 ML IV CONT ×2 (11:18→20:38)
[2022-08-14 11:40] LABS: Iron 42 ug/dL (37-170)
[2022-08-14 11:49] LABS: Lactate Dehydrogenase 199 U/L (120-246); Percent Iron Saturation 15 % (20-50)
[2022-08-14 11:50] LABS: Creatine Kinase 79 U/L (30-135)
[2022-08-14 11:51] LABS: Reticulocyte Hemoglobin Conten 23.7 pg (28.2-35.7); Reticulocyte Percent 1.35 % (0.7-4.3); Reticulocytes Absolute 0.04 B/L (32.2-175.7)
[2022-08-14 12:33] LABS: Creatinine Urine 120.9 mg/dL; Total Protein Urine Random 165 mg/dL; Ur Ttl Prot Creatinine Ratio 1.36 mg/mg (0-0.20)
[2022-08-14 12:34] LABS: Potassium Urine Random 55.6 meq/L; Sodium Urine Random 104 meq/L; Urea Random Urine 935 MG/DL
[2022-08-14 12:55] LABS: Folic Acid 10.5 ng/mL (2.76->20)
[2022-08-14 15:27] LABS: Anion Gap 18 mmol/L (8-16); Blood Urea Nitrogen 54 mg/dL (7-17); Calcium 8.9 mg/dL (8.4-10.2); Carbon Dioxide 18 mmol/L (22-30); Chloride 120 mmol/L (98-107); Estimated CRCL calculation 10 ml/min; Estimated Glomerular Filt Rate 14; Glucose 169 mg/dL (65-110); Potassium 5.3 mmol/L (3.4-5.0); Sodium 156 mmol/L (137-145)
[2022-08-14 21:12] LABS: Anion Gap 14 mmol/L (8-16); Blood Urea Nitrogen 61 mg/dL (7-17); Calcium 8.7 mg/dL (8.4-10.2); Carbon Dioxide 20 mmol/L (22-30); Chloride 117 mmol/L (98-107); Estimated CRCL calculation 12 ml/min; Estimated Glomerular Filt Rate 17; Glucose 140 mg/dL (65-110); Potassium 5.1 mmol/L (3.4-5.0); Sodium 151 mmol/L (137-145)
[2022-08-14] MEDS: FUROSEMIDE INJ 40 MG/4 ML VIAL 20 MG IV PUSH (22:05)
[2022-08-15] VITALS (15 sets, daily range): BP systolic 112–130; BP diastolic 60–83; PULSE 71–96; RESP 16–24; TEMP 36.3–37.1; O2SAT 96–100
[2022-08-15 04:01] LABS: Albumin Level 3.5 g/dL (3.5-5.1); Anion Gap 12 mmol/L (8-16); Blood Urea Nitrogen 65 mg/dL (7-17); Calcium 8.3 mg/dL (8.4-10.2); Carbon Dioxide 21 mmol/L (22-30); Chloride 114 mmol/L (98-107); Estimated CRCL calculation 11 ml/min; Estimated Glomerular Filt Rate 16; Glucose 159 mg/dL (65-110); Potassium 4.8 mmol/L (3.4-5.0); Sodium 147 mmol/L (137-145)
[2022-08-15] MEDS: methylPREDNISolone SOD SUCC 40 MG VIAL IV PUSH ×3 (05:49→21:14)
[2022-08-15] MEDS: DEXTROSE 5% 1,000 ML 1,000 ML 100 ML IV CONT (05:49)
--- NOTE | 2022-08-15 07:47 | PM.PNCARD ---
Progress Note: A&P Assessment and Plan (1) CHF exacerbation: Code(s): I50.9 - Heart failure, unspecified Status: Acute Assessment and Plan: This is probably acute on chronic systolic and diastolic heart failure with mod-severe MR. This will treated by diuretics prn. 08/10/21 Echo: EF 45-50%, grade I diastolic dysfunction (E/e' 17), mod LAE, mild-mod MR, RVSP 45 mmHg. 08/13/22 Echo: EF 40-45%, diastolic dysfunction (E/e' 26), mod LAE, mod MAC, mod-severe MR. NTproBNP up >35,000. CXR had shown mild pulm edema. On Lasix 20 mg IV BID. Repeat CXR shows possible RUL pulm edema vs pneumonia. She appears clinically dry. (2) Elevated troponin: Code(s): R77.8 - Other specified abnormalities of plasma proteins Status: Acute Assessment and Plan: Moderately elevated up to 0.347 but trending down. Probably related to volume overload and CKD. Echo shows no new wall motion abnormalities. (3) COPD (chronic obstructive pulmonary disease): Code(s): J44.9 - Chronic obstructive pulmonary disease, unspecified Status: Acute (4) Tobacco dependence: Onset Date: Unknown Code(s): F17.200 - Nicotine dependence, unspecified, uncomplicated Status: Acute Assessment and Plan: Counseled regarding smoking cessation. (5) Acute kidney injury superimposed on CKD: Code(s): N17.9 - Acute kidney failure, unspecified; N18.9 - Chronic kidney disease, unspecified Status: Acute Assessment and Plan: Nephrology following. Improvement in sodium and potassium levels. Subjective Date/time seen: 08/15/22 07:47 Interval history: Patient is demented and cannot give me any information. Exam Const: General: alert and awake Orientation/consciousness: No oriented to place and No oriented to time Resp: Effort & Inspection: tachypneic Auscultation: no crackles, no rales, no rhonchi, no wheezes and diminished lung sounds Cardio: Rate: regular rate Rhythm: regular rhythm Heart sounds: no murmurs Peripheral pulses: dorsalis pedis present GI: GI Palp: No abdominal tenderness and Yes Soft to palpation Neuro: General: oriented to person, No oriented to place and No oriented to time Extrem: Right lower extremity: no edema Left lower extremity: no edema Objective Data Vital Signs Vital Signs: Vital Signs - 24 hr 08/14/22 07:48 08/14/22 12:00 08/14/22 10:00 Temperature 99.6 F Pulse Rate 99 93 Respiratory Rate 28 H 24 H Blood Pressure 109/80 Pulse Oximetry 100 100 Oxygen Delivery Room Air Fraction of Inspired Oxygen 08/14/22 12:00 08/14/22 16:00 08/14/22 12:00 Temperature 97.5 F L Pulse Rate 81 92 92 Respiratory Rate 25 H Blood Pressure 143/100 H Pulse Oximetry 96 Oxygen Delivery Room Air Fraction of Inspired Oxygen 24 08/14/22 14:00 08/14/22 16:00 08/14/22 16:00 Temperature Pulse Rate 92 92 93 Respiratory Rate Blood Pressure Pulse Oximetry Oxygen Delivery Room Air Fraction of Inspired Oxygen 08/14/22 18:00 08/14/22 19:57 08/14/22 20:00 Temperature 98.3 F Pulse Rate 88 87 88 Respiratory Rate 16 Blood Pressure 124/84 Pulse Oximetry 95 Oxygen Delivery Fraction of Inspired Oxygen 08/14/22 20:00 08/14/22 22:00 08/14/22 23:48 Temperature 98.3 F Pulse Rate 95 84 77 Respiratory Rate 16 Blood Pressure 106/69 Pulse Oximetry 92 Oxygen Delivery Room Air Fraction of Inspired Oxygen 08/15/22 00:00 08/15/22 00:00 08/15/22 02:00 Temperature Pulse Rate 83 92 87 Respiratory Rate Blood Pressure Pulse Oximetry Oxygen Delivery Room Air Fraction of Inspired Oxygen 08/15/22 04:00 08/15/22 04:00 08/15/22 04:00 Temperature 98.1 F Pulse Rate 83 84 96 Respiratory Rate 16 Blood Pressure 126/65 Pulse Oximetry 96 Oxygen Delivery Room Air Fraction of Inspired Oxygen 08/15/22 06:00 08/15/22 07:34 Temperature Pulse Rate 79 75 Respiratory Ra
--- NOTE | 2022-08-15 09:43 | PM.PNNEP ---
Progress Note: A&P Assessment and Plan (1) CKD (chronic kidney disease): Code(s): N18.9 - Chronic kidney disease, unspecified Status: Acute Assessment and Plan: the patient has chronic kidney disease. Her creatinine was around 2 a year ago. renal ultrasound shows bilateral small kidneys. Urine protein excretion rate is 1360. Fractional excretion of urea shows pre renal factors. CPK is normal The patient does have hypertension and congestive heart failure. She probably has some involvement of the blood pressure and of vascular disease in her chronic kidney disease. The creatinine palma with the hospital stay but now is decreased. She was getting diuretics. Also she has a UTI these may be playing a role in her higher creatinine. However she is still volume overloaded by chest x-ray. This is probably due to her moderate to severe mitral regurgitation. This also might cause a pre renal factor. At this point she does have volume overload so we are forced to diurese her. Will continue low-dose diuretics and see if we can get her better. (2) Hypernatremia: Code(s): E87.0 - Hyperosmolality and hypernatremia Status: Acute Assessment and Plan: patient's sodium level is high. This is most likely due to poor free water intake. She received D5W yesterday and the sodium is improving. Will continue D5W and Lasix together to treat both the volume overload and the high sodium. (3) Hyperkalemia: Code(s): E87.5 - Hyperkalemia Status: Acute Assessment and Plan: This is improved with diuresis plus fluids. (4) Metabolic acidosis: Code(s): E87.20 - Acidosis, unspecified Status: Acute Assessment and Plan: bicarbonate level is low. The bicarbonate is better. Anion gap has improved. Beta hydroxybutyrate is normal. Lactic acid is still a little bit high. (5) CHF exacerbation: Code(s): I50.9 - Heart failure, unspecified Status: Acute Assessment and Plan: The patient has severe mitral regurgitation and a moderately poor LV. (6) Elevated troponin: Code(s): R77.8 - Other specified abnormalities of plasma proteins Status: Acute Assessment and Plan: Positive troponins are felt by Cardiology to be due to volume overload. (7) Anemia: Code(s): D64.9 - Anemia, unspecified Status: Acute Assessment and Plan: hemoglobin is 8.2. She had a high MCV at 1 point but is back to normal now. Possibly due to renal insufficiency. Her iron levels are low. Once she is finished with cefdinir we can put her on IV iron. (8) Pyuria: Code(s): R82.81 - Pyuria Status: Acute Assessment and Plan: She has pyuria. Cultures grew Proteus. She is on cefdinir. Subjective Date/time seen: 08/15/22 09:43 Interval history: Bridget is resting comfortably in bed. Exam Narrative: WDWN female in NAD skin no rash head ncat lungs clear cor reg no rub abd BS+ nontender and soft ext no edema. Objective Data Vital Signs Vital Signs: Vital Signs - 24 hr 08/14/22 12:00 08/14/22 10:00 08/14/22 12:00 Temperature 37.6 C Pulse Rate 99 93 81 Respiratory Rate 24 H Blood Pressure 109/80 Pulse Oximetry 100 Oxygen Delivery Fraction of Inspired Oxygen 08/14/22 16:00 08/14/22 12:00 08/14/22 14:00 Temperature 36.4 C L Pulse Rate 92 92 92 Respiratory Rate 25 H Blood Pressure 143/100 H Pulse Oximetry 96 Oxygen Delivery Room Air Fraction of Inspired Oxygen 24 08/14/22 16:00 08/14/22 16:00 08/14/22 18:00 Temperature Pulse Rate 92 93 88 Respiratory Rate Blood Pressure Pulse Oximetry Oxygen Delivery Room Air Fraction of Inspired Oxygen 08/14/22 19:57 08/14/22 20:00 08/14/22 20:00 Temperature 36.8 C Pulse Rate 87 88 95 Respiratory Rate 16 Blood Pressure 124/84 Pulse Oximetry 95 Oxygen Delivery
[2022-08-15] MEDS: CEFDINIR 300 MG CAPSULE PO ×2 (09:54→21:14)
[2022-08-15] MEDS: FUROSEMIDE INJ 40 MG/4 ML VIAL 20 MG IV PUSH (09:55)
--- NOTE | 2022-08-15 11:39 | PM.IMPN ---
Progress Note: A&P Assessment and Plan (1) Acute CHF: Code(s): I50.9 - Heart failure, unspecified Status: Acute Assessment and Plan: admit to IMU appears euvolemic or little dry. Will decrease her Lasix and changed to p.o.. Appreciate Cardiology input. (2) Acute kidney injury superimposed on CKD: Code(s): N17.9 - Acute kidney failure, unspecified; N18.9 - Chronic kidney disease, unspecified Status: Acute Assessment and Plan: likely to be cardiorenal syndrome continue to monitor daily intake and output Appreciate Nephrology input. Creatinine 2.8. Baseline is around 2.0-2.2. (3) Megaloblastic anemia: Code(s): D53.1 - Other megaloblastic anemias, not elsewhere classified Status: Acute Assessment and Plan: follow-up in outpatient setting (4) Tobacco dependence: Onset Date: Unknown Code(s): F17.200 - Nicotine dependence, unspecified, uncomplicated Status: Acute Assessment and Plan: nicotine patch as needed (5) NSTEMI (non-ST elevated myocardial infarction): Code(s): I21.4 - Non-ST elevation (NSTEMI) myocardial infarction Status: Acute Assessment and Plan: Likely type 2 [place]. no further ischemic workup needed. (6) Adenocarcinoma of sigmoid colon: Onset Date: ~07/2021 Code(s): C18.7 - Malignant neoplasm of sigmoid colon Status: Acute Assessment and Plan: History of (7) Hypernatremia: Code(s): E87.0 - Hyperosmolality and hypernatremia Status: Acute Assessment and Plan: appreciate nephrology input. Improving, no neurologic complaints. (8) Hyperkalemia: Code(s): E87.5 - Hyperkalemia Status: Acute Assessment and Plan: Improved (9) Metabolic acidosis: Code(s): E87.20 - Acidosis, unspecified Status: Acute Assessment and Plan: Likely related to acute on chronic renal insufficiency. Appreciate Nephrology input. (10) Urinary tract infection: Onset Date: ~07/2021 Code(s): N39.0 - Urinary tract infection, site not specified Status: Acute Assessment and Plan: Oral antibiotics. Subjective Date/time seen: 08/15/22 11:39 respiratory status much improved. Patient reports she is feeling like her respiratory status is at her baseline. Much more alert as well today Exam Const: General: comfortable, no acute distress, well developed, alert, awake, acute distress mild, ill appearing, patient obtunded, tired appearing, average body habitus and thin Nutritional Appearance: average body habitus and thin Orientation/consciousness: oriented to person, patient oriented x3 and patient obtunded HENMT: Head: normal to inspection, normocephalic and atraumatic Ears: hearing grossly normal bilaterally Face/Nose/Sinus: normal facial exam Face and sinus: normal facial exam Eyes: General: appearance normal, both eyes and all related structures Pupils: Equal, round and reactive pupils present EOM: EOMs intact bilaterally Neck: Neck: full ROM, no lymphadenopathy and no JVD Thyroid: thyroid normal Lymphatic: no lymphadenopathy noted Resp: Effort & Inspection: normal respiratory effort, able to speak in complete sentences, no grunting, not labored, no retractions, not tachypneic and other ( on BiPAP) Auscultation: clear to auscultation bilaterally Cardio: Jugular venous distension: no JVD Rate: regular rate Rhythm: regular rhythm Heart sounds: S1 normal heart sound present and S2 normal heart sound present GI: Inspection: normal to inspection : General: Yes deferred Skin: Rashes: no rashes Wounds: no wounds Neuro: General: oriented to person, patient oriented x3, CN's II-XI intact bilaterally, patient obtunded and Unable to assess gait Cranial nerves: Yes CN's II-XII intact bilaterally and Yes Equal, round and reactive pupils present Cognition (Neuro): normal cognition and abnormal cognitio
[2022-08-15 16:40] LABS: Total Volume 24 Hour Urine 1600 ml
[2022-08-15 16:56] LABS: Creatinine 24 Hour Urine 0.7 gm/24 (0.8-1.8); Creatinine Urine 45.7 mg/dL
[2022-08-15] MEDS: DEXTROSE 5% 1,000 ML 1,000 ML 75 ML IV CONT (17:08)
[2022-08-16] VITALS (8 sets, daily range): BP systolic 115–129; BP diastolic 78–84; PULSE 60–79; RESP 16–20; TEMP 36.7–37.2; O2SAT 96–98
[2022-08-16 05:06] LABS: Lactic Acid Reflex 1.3 mmol/L (0.7-2.0)
[2022-08-16 05:12] LABS: Albumin Level 3.5 g/dL (3.5-5.1); Anion Gap 15 mmol/L (8-16); Blood Urea Nitrogen 68 mg/dL (7-17); Calcium 7.6 mg/dL (8.4-10.2); Carbon Dioxide 21 mmol/L (22-30); Chloride 103 mmol/L (98-107); Estimated CRCL calculation 12 ml/min; Estimated Glomerular Filt Rate 17; Glucose 147 mg/dL (65-110); Potassium 4.5 mmol/L (3.4-5.0); Sodium 139 mmol/L (137-145)
[2022-08-16] MEDS: methylPREDNISolone SOD SUCC 40 MG VIAL IV PUSH (05:34)
[2022-08-16] MEDS: DEXTROSE 5% 1,000 ML 1,000 ML 75 ML IV CONT (05:35)
--- NOTE | 2022-08-16 07:08 | PM.PNNEP ---
Progress Note: A&P Assessment and Plan (1) CKD (chronic kidney disease): Code(s): N18.9 - Chronic kidney disease, unspecified Status: Acute Assessment and Plan: the patient has chronic kidney disease. Her creatinine was around 2 a year ago. renal ultrasound shows bilateral small kidneys. Urine protein excretion rate is 1360. Fractional excretion of urea shows pre renal factors. CPK is normal The patient does have hypertension and congestive heart failure. She probably has some involvement of the blood pressure and of vascular disease in her chronic kidney disease. her creatinine is a little bit higher. Perhaps this is a new baseline. She does have chronic pre renal azotemia because of her severe mitral regurgitation and so cardio renal syndrome is certainly playing a role. At this point will give diuretics for symptoms but try not to allow the creatinine to so much higher. Her chest x-ray still showed volume overload but she is not short of breath or on oxygen. She is getting furosemide 20 mg a day orally. (2) Hypernatremia: Code(s): E87.0 - Hyperosmolality and hypernatremia Status: Acute Assessment and Plan: patient's sodium level Has returned to normal. She is on lower doses of diuretics. Encourage p.o. intake. Stop IV fluids. (3) Hyperkalemia: Code(s): E87.5 - Hyperkalemia Status: Acute Assessment and Plan: This is improved with diuresis plus fluids. (4) Metabolic acidosis: Code(s): E87.20 - Acidosis, unspecified Status: Acute Assessment and Plan: bicarbonate level is low. The bicarbonate is better. Anion gap has improved. Beta hydroxybutyrate is normal. Lactic acid is still a little bit high. (5) CHF exacerbation: Code(s): I50.9 - Heart failure, unspecified Status: Acute Assessment and Plan: The patient has severe mitral regurgitation and a moderately poor LV. (6) Elevated troponin: Code(s): R77.8 - Other specified abnormalities of plasma proteins Status: Acute Assessment and Plan: Positive troponins are felt by Cardiology to be due to volume overload. (7) Anemia: Code(s): D64.9 - Anemia, unspecified Status: Acute Assessment and Plan: hemoglobin is 8.2. She had a high MCV at 1 point but is back to normal now. Possibly due to renal insufficiency. Her iron levels are low. Once she is finished with cefdinir we can put her on IV iron. (8) Pyuria: Code(s): R82.81 - Pyuria Status: Acute Assessment and Plan: She has pyuria. Cultures grew Proteus. She is on cefdinir. Subjective Date/time seen: 08/16/22 07:08 Interval history: Bridget is resting comfortably in bed. She is not short of breath lying flat and she is off oxygen. Exam Narrative: WDWN female in NAD skin no rash head ncat lungs clear bilaterally cor reg no rub abd BS+ nontender and soft ext no edema. Objective Data Vital Signs Vital Signs: Vital Signs - 24 hr 08/15/22 07:34 08/15/22 07:59 08/15/22 10:00 Temperature 36.8 C Pulse Rate 75 71 88 Respiratory Rate 24 H Blood Pressure 112/62 Pulse Oximetry 100 Oxygen Delivery Fraction of Inspired Oxygen 08/15/22 12:00 08/15/22 08:00 08/15/22 12:00 Temperature Pulse Rate 90 87 Respiratory Rate 18 Blood Pressure Pulse Oximetry 98 Oxygen Delivery Room Air Room Air Fraction of Inspired Oxygen 24 08/15/22 12:00 08/15/22 13:38 08/15/22 14:00 Temperature 37.1 C Pulse Rate 87 82 Respiratory Rate 18 Blood Pressure 113/64 Pulse Oximetry 98 97 Oxygen Delivery Room Air Fraction of Inspired Oxygen 08/15/22 16:00 08/15/22 16:00 08/15/22 16:00 Temperature 36.9 C Pulse Rate 87 77 87 Respiratory Rate 20 20 Blood Pressure 130/60 Pulse Oximetry 98 98 Oxygen Delivery Room Air Fraction of Inspired Oxygen
--- NOTE | 2022-08-16 07:40 | PM.PNCARD ---
Progress Note: A&P Assessment and Plan (1) CHF exacerbation: Code(s): I50.9 - Heart failure, unspecified Status: Acute Assessment and Plan: Resolved. This is probably acute on chronic systolic and diastolic heart failure with mod-severe MR. Conservative treatment in elderly demented patient. This is being treated with diuretics prn. 08/10/21 Echo: EF 45-50%, grade I diastolic dysfunction (E/e' 17), mod LAE, mild-mod MR, RVSP 45 mmHg. 08/13/22 Echo: EF 40-45%, diastolic dysfunction (E/e' 26), mod LAE, mod MAC, mod-severe MR. NTproBNP up >35,000. CXR had shown mild pulm edema. On Lasix 20 mg PO daily. Repeat CXR shows possible RUL pulm edema vs pneumonia. She appears clinically dry. No further cardiac workup. (2) Elevated troponin: Code(s): R77.8 - Other specified abnormalities of plasma proteins Status: Acute Assessment and Plan: Moderately elevated up to 0.347 but trending down. Probably related to volume overload and CKD. Echo shows no new wall motion abnormalities. (3) COPD (chronic obstructive pulmonary disease): Code(s): J44.9 - Chronic obstructive pulmonary disease, unspecified Status: Acute (4) Tobacco dependence: Onset Date: Unknown Code(s): F17.200 - Nicotine dependence, unspecified, uncomplicated Status: Acute Assessment and Plan: Counseled regarding smoking cessation. (5) Acute kidney injury superimposed on CKD: Code(s): N17.9 - Acute kidney failure, unspecified; N18.9 - Chronic kidney disease, unspecified Status: Acute Assessment and Plan: Nephrology following. Improvement in sodium and potassium levels. Subjective Date/time seen: 08/16/22 07:40 Interval history: Patient is demented. Reports feeling tired . No chest pain or sob. Exam Const: General: alert and awake Orientation/consciousness: No oriented to place and No oriented to time Resp: Auscultation: clear to auscultation bilaterally, no crackles, no rales, no rhonchi and no wheezes Cardio: Rate: regular rate Rhythm: regular rhythm Heart sounds: no murmurs Peripheral pulses: dorsalis pedis present GI: GI Palp: No abdominal tenderness and Yes Soft to palpation Neuro: General: oriented to person, No oriented to place and No oriented to time Extrem: Right lower extremity: no edema Left lower extremity: no edema Objective Data Vital Signs Vital Signs: Vital Signs - 24 hr 08/15/22 07:59 08/15/22 10:00 08/15/22 12:00 Temperature 98.2 F Pulse Rate 71 88 90 Respiratory Rate 24 H Blood Pressure 112/62 Pulse Oximetry 100 Oxygen Delivery Fraction of Inspired Oxygen 08/15/22 08:00 08/15/22 12:00 08/15/22 12:00 Temperature 98.7 F Pulse Rate 87 87 Respiratory Rate 18 18 Blood Pressure 113/64 Pulse Oximetry 98 98 Oxygen Delivery Room Air Room Air Fraction of Inspired Oxygen 24 08/15/22 13:38 08/15/22 14:00 08/15/22 16:00 Temperature 98.5 F Pulse Rate 82 87 Respiratory Rate 20 Blood Pressure 130/60 Pulse Oximetry 97 98 Oxygen Delivery Room Air Fraction of Inspired Oxygen 08/15/22 16:00 08/15/22 16:00 08/15/22 20:00 Temperature Pulse Rate 77 87 87 Respiratory Rate 20 20 Blood Pressure Pulse Oximetry 98 98 Oxygen Delivery Room Air Room Air Fraction of Inspired Oxygen 24 24 08/15/22 20:00 08/15/22 20:02 08/15/22 22:00 Temperature 97.3 F L Pulse Rate 90 78 83 Respiratory Rate 16 Blood Pressure 113/78 Pulse Oximetry 96 Oxygen Delivery Fraction of Inspired Oxygen 08/15/22 23:23 08/16/22 00:00 08/16/22 00:00 Temperature 98.3 F Pulse Rate 81 79 79 Respiratory Rate 16 16 Blood Pressure 120/83 Pulse Oximetry 96 96 Oxygen Delivery Room Air Fraction of Inspired Oxygen 24 08/16/22 02:00 08/16/22 04:00 08/16/22 04:00 Temperature Pulse Rate 72 79 79 Respiratory Rate 16 Blood Pressure Pulse Oximetry 96 Oxygen Delivery Room Air Fra
[2022-08-16] MEDS: CEFDINIR 300 MG CAPSULE PO (09:28)
[2022-08-16] MEDS: FUROSEMIDE 20 MG TABLET PO (09:28)
--- NOTE | 2022-08-16 12:14 | PM.DS ---
DS: Admitting Diagnosis Discharge Date August 16, 2022 Admitting Diagnosis CHF, UTI DS: Discharge Diagnosis Discharge Diagnosis (1) Acute CHF: Code(s): I50.9 - Heart failure, unspecified Status: Acute Assessment and Plan: admit to IMU appears euvolemic or little dry. Will decrease her Lasix and changed to p.o.. Appreciate Cardiology input. (2) Acute kidney injury superimposed on CKD: Code(s): N17.9 - Acute kidney failure, unspecified; N18.9 - Chronic kidney disease, unspecified Status: Acute Assessment and Plan: likely to be cardiorenal syndrome continue to monitor daily intake and output Appreciate Nephrology input. Creatinine 2.8. Baseline is around 2.0-2.2. (3) Megaloblastic anemia: Code(s): D53.1 - Other megaloblastic anemias, not elsewhere classified Status: Acute Assessment and Plan: follow-up in outpatient setting (4) Tobacco dependence: Onset Date: Unknown Code(s): F17.200 - Nicotine dependence, unspecified, uncomplicated Status: Acute Assessment and Plan: nicotine patch as needed (5) NSTEMI (non-ST elevated myocardial infarction): Code(s): I21.4 - Non-ST elevation (NSTEMI) myocardial infarction Status: Acute Assessment and Plan: Likely type 2 [place]. no further ischemic workup needed. (6) Adenocarcinoma of sigmoid colon: Onset Date: ~07/2021 Code(s): C18.7 - Malignant neoplasm of sigmoid colon Status: Acute Assessment and Plan: History of (7) Hypernatremia: Code(s): E87.0 - Hyperosmolality and hypernatremia Status: Acute Assessment and Plan: appreciate nephrology input. Improving, no neurologic complaints. (8) Hyperkalemia: Code(s): E87.5 - Hyperkalemia Status: Acute Assessment and Plan: Improved (9) Metabolic acidosis: Code(s): E87.20 - Acidosis, unspecified Status: Acute Assessment and Plan: Likely related to acute on chronic renal insufficiency. Appreciate Nephrology input. (10) Urinary tract infection: Onset Date: ~07/2021 Code(s): N39.0 - Urinary tract infection, site not specified Status: Acute Assessment and Plan: Oral antibiotics. DS: Summary Hospital Course Hospital Course: patient was admitted for shortness of breath. Found to have urinary tract infection but also found to have acute on chronic exacerbation of diastolic CHF. Patient was given diuretics and improved significantly. She will be discharged on small dose of diuretic. Otherwise she does have underlying COPD she was given some steroids which improved her respiratory status as well. Also to note she was found have a UTI given Omnicef on discharge. Patient reports she is back to her baseline and can be discharged from the hospital. Time Spent with Patient Time attestation: Total time spent providing and/or coordinating discharge services: Exam Const: General: comfortable, no acute distress, well developed, alert, awake, acute distress mild, ill appearing, patient obtunded, tired appearing, average body habitus and thin Nutritional Appearance: average body habitus and thin Orientation/consciousness: oriented to person, patient oriented x3 and patient obtunded HENMT: Head: normal to inspection, normocephalic and atraumatic Ears: hearing grossly normal bilaterally Face/Nose/Sinus: normal facial exam Face and sinus: normal facial exam Eyes: General: appearance normal, both eyes and all related structures Pupils: Equal, round and reactive pupils present EOM: EOMs intact bilaterally Neck: Neck: full ROM, no lymphadenopathy and no JVD Thyroid: thyroid normal Lymphatic: no lymphadenopathy noted Resp: Effort & Inspection: normal respiratory effort, able to speak in complete sentences, no grunting, not labored, no retractions, not tachypneic and other ( on BiPAP) Auscultation: byron
[2022-08-16 12:29] LABS: Glucose Point of Care 131 mg/dl (65-105)
[2022-08-16 12:51] LABS: EDCOVIDSCREEN Negative (Negative)
[2022-08-18 17:32] LABS: Osmolality, Urine 693 mOsm/kg (50-1200)
[2022-08-19 18:03] LABS: Haptoglobin 317 mg/dL (43-212)
== END 2022-08-16 15:09 | DRG 280 ==
LOC: ANHED 08-13 02:16 → ANHIMU 08-13 02:39
PROVIDERS: Internal Medicine Nephrology; Admitting Provider Internal Medicine; Emergency Provider Preventive Medicine Aerospace Medicine; Visit Provider Chiropractor
DX: I13.0 Hypertensive heart and chronic kidney disease with heart failure and stage 1 through stage 4 chronic kidney disease, or unspecified chronic kidney disease (principal); I50.43 Acute on chronic combined systolic (congestive) and diastolic (congestive) heart failure; I21.A1 Myocardial infarction type 2; N39.0 Urinary tract infection, site not specified; N17.9 Acute kidney failure, unspecified; E87.0 Hyperosmolality and hypernatremia; E87.20 Acidosis, unspecified; Z20.822 Contact with and (suspected) exposure to COVID-19; E87.5 Hyperkalemia; J44.9 Chronic obstructive pulmonary disease, unspecified; N18.9 Chronic kidney disease, unspecified; D53.1 Other megaloblastic anemias, not elsewhere classified; F17.210 Nicotine dependence, cigarettes, uncomplicated; F03.90 Unspecified dementia, unspecified severity, without behavioral disturbance, psychotic disturbance, mood disturbance, and anxiety; Z66 Do not resuscitate; Z85.038 Personal history of other malignant neoplasm of large intestine; I34.0 Nonrheumatic mitral (valve) insufficiency
CPT/HCPCS: 36415; 70450; 71045; 71046; 76775; 80048; 80053; 80069; 81050; 82010; 82550; 82570; 82607; 82728; 82746; 82803; 82948; 83010; 83540; 83550; 83605; 83615; 83880; 83930; 83935; 84133; 84156; 84300; 84484; 84540; 85025; 85046; 85380; 87426; 87502; 93005; 93306; 94002; 94003; 94640; 96365; 96366; 96367; 96375; 96376; 99285; A9270; C9803; G0378; J1940; J2920; J2930; J3475; J7070; U0003; U0005

== ENCOUNTER 2022-08-17 09:57 | Emergency (ER) | payer OTHER, SELFPAY ==
[2022-08-17] VITALS (24 sets, daily range): BP systolic 90–147; BP diastolic 53–90; PULSE 67–85; RESP 19–24; TEMP 36.6; O2SAT 84–100
--- NOTE | ~2022-08-17 | XR_ITS ---
XR chest 1V 08/17/2022 10:50 Indication: Hypoxia Procedure: AP view of the chest Comparison: Comparison to multiple prior studies sequentially, with oldest reviewed study dated 07/25. Findings: Heart size normal. There is improving right upper lobe airspace disease, consistent with re solving pneumonia. No pleural effusion, edema or pneumothorax. Generalized osteopenia. The lungs are hyperinflated which is consistent with, but not diagnostic of chronic obstructive pulmonary disease. Impression: 1: Improving right upper lobe pneumonia. Reviewed, dictated and finalized at location B. Impression: 1: Improving right upper lobe pneumonia.
--- NOTE | ~2022-08-17 | CT_ITS ---
EXAMINATION: CT brain wo con DATE: 08/17/2022 10:47 INDICATION: Hypoxia. TECHNIQUE: Computed tomography (CT) of the head was performed without intravenous contrast. The dose- length product was 983.67 mGy-cm. Automated exposure control and iterative reconstruction technique w ere employed. COMPARISON: CT dated 08/13/2022 FINDINGS: There are chronic bilateral lacunar infarctions. Generalized atrophy. Chronic left frontal lobe infarction. There are scattered severe periventricular and subcortical white matter changes, mos t likely related to small vessel ischemic disease (microangiopathy). No ventriculomegaly. Basilar cis terns are patent. There is intracranial atherosclerosis. No acute intracranial hemorrhage or infarcti on. Paranasal sinuses and mastoids are pneumatized. No depressed skull fractures. IMPRESSION: 1. No acute intracranial abnormality. 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 3: Chronic age-related findings. Reviewed, dictated and finalized at location B.
--- NOTE | 2022-08-17 10:12 | PC.NURSE ---
Patient placed on 2L NC
--- NOTE | 2022-08-17 10:30 | PC.NURSE ---
Patient 85% on 6L simple mask.MD aware and placed orders for breathing treatment. no new orders to place patient on more O2 at this time
--- NOTE | 2022-08-17 10:55 | ED.GENADULT ---
HPI - General Adult General Chief complaint: Fall Stated complaint: GLF, LOW O2, AMS WITH HX DEMENTIA Time Seen by Provider: 08/17/22 09:58 History of Present Illness HPI narrative: 82-year-old female presenting to the emergency department for evaluation of altered mental status after a possible ground-level fall. Patient denies any complaints at this time. Patient denies having a fall and denies any shortness of breath. Patient's pulse ox was in the low 90s upon arrival. After breathing treatment and with some productive coughing patient's pulse ox improved and she was able to be maintained on room air for the majority of her stay. Related Data Home Medications Medication Instructions Recorded Confirmed albuterol 90 mcg/actuation aerosol 180 mcg inhalation Q4H PRN 08/13/22 08/13/22 inhaler Shortness Of Breath cephalexin 500 mg capsule 500 mg PO BID 08/13/22 08/13/22 ergocalciferol (vitamin D2) 1,250 1,250 mcg PO WEEKLY 08/13/22 08/13/22 mcg (50,000 unit) capsule ipratropium 0.5 mg-albuterol 3 mg 3 ml inhalation Q4H PRN Shortness 08/13/22 08/13/22 (2.5 mg base)/3 mL nebulization Of Breath soln megestrol 400 mg/10 mL (40 mg/mL) 400 mg PO DAILY 08/13/22 08/13/22 oral suspension mirtazapine 15 mg tablet 15 mg PO DAILY 08/13/22 08/13/22 multivitamin with iron 1 tablet PO DAILY 08/13/22 08/13/22 prednisone 20 mg tablet 20 mg PO DAILY 08/13/22 08/13/22 Allergies Allergy/AdvReac Type Severity Reaction Status Date / Time lidocaine Allergy Unknown Unknown Verified 08/12/22 22:05 procaine Allergy Unknown Unknown Verified 08/12/22 22:05 Review of Systems Review of Systems: ROS unobtainable: Yes unobtainable due to medical condition PMFSH Past Medical History Medical History (Updated 08/17/22 @ 13:12 by Rigoberto Gaona MD) Abnormal results of kidney function studies CHF (congestive heart failure) COPD (chronic obstructive pulmonary disease) Hypertension (Unknown) Metabolic acidosis Pyuria Surgical History Surgical History Hx of cataract surgery Family History Family History Mother Diabetes mellitus Social History Social History Smoking status: Current every day smoker Alcohol intake: never Substance use: never Substance use type: does not use Spiritual care concerns: No Exam Narrative: APPEARANCE: Well appearing, no pain, no distress, well-nourished. HEAD: normocephalic, atraumatic. EYES: PERRLA/EOMI, conjunctivae clear. NOSE: Normal no drainage EARS:TMS clear with good light reflex. THROAT: Pharynx clear, no exudate. NECK: Supple. No adenopathy, no masses. RESPIRATORY: Airway patent, respirations nonlabored. Clear to auscultation bilaterally, no rales, rhonchi, wheezing. CARDIOVASCULAR: Regular rate and rhythm without murmurs rubs or gallops. ABDOMINAL: Soft, nontender, nondistended, normal bowel sounds MUSCULOSKELETAL: Moves all extremities. Strength/ROM intact, No edema, No calf tenderness. NEURO: Alert. Cranial nerves II through XII intact. Grossly intact SKIN: Warm, dry. Normal Color Course Course Emergency Course: Patient was able to do some productive calls after a breathing treatment and patient's pulse ox is stable on room air. Patient does have an elevated BNP but this is better than her BMP during her last hospitalization. Vital Signs Vital signs: Vital Signs Temperature 97.9 F 08/17/22 09:59 Pulse Rate 75 08/17/22 09:59 Respiratory Rate 22 H 08/17/22 09:59 Blood Pressure 90/64 L 08/17/22 09:59 Pulse Oximetry 87 L 08/17/22 09:59 Oxygen Delivery Room Air 08/17/22 09:59 Temperature 97.9 F 08/17/22 09:59 Pulse Rate 85 08/17/22 14:01 Respiratory Rate 22 H 08/17/22 14:01 Blood Pressure 138/78 08/17/22 14:01 Pulse Oximetry 97 08/17/22 14:01 Oxygen Delivery Room Air 08/17
[2022-08-17] MEDS: ALBUTEROL SULFATE NEB 2.5 MG/3 ML INH 5 MG INHALATION (10:57)
[2022-08-17] MEDS: IPRATROPIUM BR 0.02% INH SOLN 0.5 MG/2.5 ML VIAL 1 MG INHALATION (10:59)
[2022-08-17 11:12] LABS: Alveolar/Arterial O2 Gradient 33.1 mmHg; Base Excess ABG -4.2 mEq/l (+/-2.0); Fractional Inspired Oxygen 40 %; HCO3 ABG 20.1 mEq/l (22.0-26.0); Oxygen Content ABG 16.2 %vol (16.0-22.0); Oxygen Saturation ABG 99.4 % (95.0-100.0); Oxyhemoglobin 97.9 % THb (90.0-100.0); PCO2 ABG 33.9 mmHg (35.0-45.0); PO2 ABG 213.1 mmHg (80.0-100.0); PO2 FiO2 Ratio Arterial Blood 5.33 %; Total Hemoglobin 11.4 g/dL (12.0-18.0)
[2022-08-17 11:13] LABS: Device SIMPLE MASK; Site Drawn RIGHT BRACHIAL
[2022-08-17 12:10] LABS: NT Pro B Type Natriuretic Pept 26600 pg/mL (5-100)
[2022-08-17 13:00] LABS: Influenza A QL RT-PCR Negative (Negative); Influenza B QL RT-PCR Negative (Negative); SARS-CoV-2 RNA PCR Negative
--- NOTE | 2022-08-17 13:25 | PC.NURSE ---
Patient on room air at this time
== END 2022-08-17 14:24 ==
PROVIDERS: Emergency Provider Emergency Medicine
DX: R09.02 Hypoxemia (principal); Z20.822 Contact with and (suspected) exposure to COVID-19; I50.9 Heart failure, unspecified; J44.9 Chronic obstructive pulmonary disease, unspecified; I11.0 Hypertensive heart disease with heart failure; E87.20 Acidosis, unspecified; Z98.49 Cataract extraction status, unspecified eye; F17.200 Nicotine dependence, unspecified, uncomplicated
CPT/HCPCS: 36415; 36600; 70450; 71045; 82805; 83880; 87502; 99284; U0003; U0005

== ENCOUNTER 2022-09-23 01:55 | Inpatient (IN) | payer OTHER, SELFPAY ==
[2022-09-23] VITALS (29 sets, daily range): BP systolic 107–196; BP diastolic 54–166; PULSE 61–124; RESP 16–30; TEMP 36.1–37.1; O2SAT 90–100; BMI 15.7
--- NOTE | ~2022-09-23 | XR_ITS ---
XR chest PICC line 09/30/2022 17:45 Indication: Line placement Procedure: AP portable chest Comparison: Comparison to multiple prior studies sequentially, with oldest reviewed study dated 07/25. Findings: Left subclavian PICC line tip in the SVC. Heart size normal. The lungs are hyperinflated wh ich is consistent with, but not diagnostic of chronic obstructive pulmonary disease. No focal air spa ce disease, pulmonary edema, pleural effusion or suspected pneumothorax. Impression: 1: Left subclavian PICC line tip in the SVC. Reviewed, dictated and finalized at location A. RMATICS EDUCATOR Impression: 1: Left subclavian PICC line tip in the SVC.
--- NOTE | ~2022-09-23 | CT_ITS ---
EXAMINATION: CT chest abdomen pelvis wo con DATE: 09/29/2022 08:39 SAS PROGRAMMER REMOTE INDICATION: Pericarditis bacteremia. Colon cancer. Pneumonia. TECHNIQUE: Computed tomography (CT) of the chest, abdomen, and pelvis was performed without intraveno us contrast. The dose-length product was 310.71 mGy-cm. Automated exposure control and iterative caryn nstruction technique were employed. COMPARISON: CT dated 08/13/2021 FINDINGS: CHEST CT: Heart size is normal. There is atherosclerosis of the aorta and coronary arteries. Small left pleural effusion. No thoracic lymphadenopathy. There is emphysema. There is an irregular shaped right upper lobe nodule which measures 1.6 x 1.1 x 0.9 cm, suspicious for bronchogenic carcinoma. There are groun dglass opacities in the left upper lobe, suspicious for pneumonia. ABDOMEN/PELVIS CT: The liver, pancreas, adrenal glands are unremarkable. There are calcified granulomas of the spleen. T here are nonobstructing bilateral renal stones. Bilateral renal atrophy. There is extensive atheroscl erosis. There is a 3.7 cm right renal cyst. Nonobstructive bowel gas pattern. Santana catheter present in the bladder. Moderate colonic fecal loading with retention of barium in the colon. No free air or free fluid. There is moderate lumbar spondylosis. There is accentuated thoracic kyphosis. No acute os seous abnormality. IMPRESSION: 1. Irregular shaped 1.6 cm right upper lobe nodule, suspicious for bronchogenic carcinoma. Recommend further evaluation with percutaneous biopsy or PET/CT scan. 2: Patchy groundglass opacities left upper lobe, compatible with pneumonia. 3: Emphysema. 4.: Nonobstructing bilateral nephrolithiasis. 5: No acute abnormality of the abdomen or pelvis. Reviewed, dictated and finalized at location A. PROGRAMMER REMOTE IMPRESSION: 1. Irregular shaped 1.6 cm right upper lobe nodule, suspicious for bronchogenic carcinoma. Recommend further evaluation with percutaneous biopsy or PET/CT sca n. 2: Patchy groundglass opacities left upper lobe, compatible with pneumonia. 3: Emphysema. 4.: Nonobstructing bilateral nephrolithiasis. 5: No acute abnormality of the abdomen or pelvis.
--- NOTE | ~2022-09-23 | XR_ITS ---
EXAMINATION: XR chest 1V portable INDICATION: Hypoxia TECHNIQUE: Portable AP chest at 0219 hours COMPARISON: 08/17/2022 FINDINGS: The lungs are hyperinflated but free of acute opacities. No pleural effusion or pneumothora x. The cardiomediastinal silhouette is normal. There is osteoarthritis of the shoulders. IMPRESSION: 1. Hyperinflation without acute cardiopulmonary abnormality. Reviewed, dictated and finalized at location A. UCT PLANNER
--- NOTE | ~2022-09-23 | XR_ITS ---
MODIFIED ESOPHAGRAM HISTORY: Aspiration pneumonia TECHNIQUE: Modified barium esophagram was performed by speech pathologist under radiologist fluorosco pic guidance. This was recorded on tape. The exam was reviewed on 09/25/2022 10:01 PMP PROJECT MANAGER. The DAP for this procedure was 0.925 Gycm2. Fluoroscopy time is 1.5 minutes. FINDINGS: Lateral projection of the cervical spine demonstrates normal alignment. During pharyngeal stage of swallowing there is reduced laryngeal elevation, reduced laryngeal adduction, vallecular re sidue, pyriform sinus residue, pharyngeal wall residue. There is laryngeal penetration with aspiratio n with thin liquids.. IMPRESSION: 1: Laryngeal penetration with aspiration with thin liquids. 2: Please refer to speech pathologist report for additional detail. Reviewed, dictated and finalized at location A. P PROJECT MANAGER
--- NOTE | 2022-09-23 02:19 | ECG_ITS ---
Measurements Intervals [place] Rate: 116 P: VA: 0 QRS: 17 QRSD: 86 T: 106 QT: 319 QTc: 443 Interpretive Statements PROBABLE SINUS TACHYCARDIA WITH PACS POSSIBLE RIGHT VENTRICULAR CONDUCTION DELAY [RSR (QR) IN V1/V2] PROBABLE INFERIOR MYOCARDIAL INFARCTION , PROBABLY OLD [35 ms Q WAVE IN II/aVF] NONSPECIFIC T-WAVE ABNORMALITY BASELINE ARTIFACT LIMITS INTERPRETATION ABNORMAL ECG Electronically Signed On 09-23-2022 11:20:28 BOOTH OPERATOR by Dawit Sandhu M.D.
--- NOTE | 2022-09-23 02:28 | ED.GENADULT ---
HPI - General Adult General Chief complaint: Unspecified Stated complaint: RESPIRATORY DISTRESS Time Seen by Provider: 09/23/22 02:19 History of Present Illness HPI narrative: This is an 82-year-old woman presenting from a dementia fdc for difficulty breathing. Per EMS patient has been in the 80s all day on 4 L nasal cannula. When they arrived she was breathing 30+ times a minute. She was placed on 15 L non-rebreather which improved her saturations to over 90%. Patient herself is A&O x1 at baseline. She says she is having difficulty breathing was unable to provide much other information. Related Data Home Medications Medication Instructions Recorded Confirmed albuterol 90 mcg/actuation aerosol 180 mcg inhalation Q4H PRN 08/13/22 08/13/22 inhaler Shortness Of Breath cephalexin 500 mg capsule 500 mg PO BID 08/13/22 08/13/22 ergocalciferol (vitamin D2) 1,250 1,250 mcg PO WEEKLY 08/13/22 08/13/22 mcg (50,000 unit) capsule ipratropium 0.5 mg-albuterol 3 mg 3 ml inhalation Q4H PRN Shortness 08/13/22 08/13/22 (2.5 mg base)/3 mL nebulization Of Breath soln megestrol 400 mg/10 mL (40 mg/mL) 400 mg PO DAILY 08/13/22 08/13/22 oral suspension mirtazapine 15 mg tablet 15 mg PO DAILY 08/13/22 08/13/22 multivitamin with iron 1 tablet PO DAILY 08/13/22 08/13/22 prednisone 20 mg tablet 20 mg PO DAILY 08/13/22 08/13/22 Allergies Allergy/AdvReac Type Severity Reaction Status Date / Time lidocaine Allergy Unknown Unknown Verified 08/12/22 22:05 procaine Allergy Unknown Unknown Verified 08/12/22 22:05 Review of Systems Review of Systems: CONSTITUTIONAL: Denies night sweats. EYES: No eye pain ENT: Denies rhinorrhea CARDIOVASCULAR: Denies palpitations RESPIRATORY: Denies hemoptysis GASTROINTESTINAL: Denies hematemesis GENITOURINARY: Denies hematuria. SKIN: Denies rash MUSCULOSKELETAL: Denies myalgia. NEUROLOGIC: Denies weakness. PSYCHIATRIC: Denies delusions PMFSH Past Medical History Medical History Abnormal results of kidney function studies CHF (congestive heart failure) COPD (chronic obstructive pulmonary disease) Hypertension (Unknown) Metabolic acidosis Pyuria Surgical History Surgical History Hx of cataract surgery Family History Family History Mother Diabetes mellitus Social History Social History Smoking status: Current every day smoker Alcohol intake: never Substance use: never Substance use type: does not use Spiritual care concerns: No Exam Narrative: APPEARANCE: Patient is old and frail. Head: atraumatic. EYES: EOMI, NOSE: Atraumatic NECK: Trachea midline RESPIRATORY: Increased respiratory rate, increased work of breathing, scattered expiratory wheezing, scattered rhonchi CARDIOVASCULAR: tachycardic, no peripheral edema ABDOMINAL: Non-distended, no guarding or rebound MUSCULOSKELETAl: No obvious deformities NEURO: Alert. Moving 4/4 extremities SKIN:: Warm, dry. Normal color PSYCHIATRIC: Normal affect Course Vital Signs Vital signs: Vital Signs Pulse Rate 110 H 09/23/22 01:54 Respiratory Rate 30 H 09/23/22 01:54 Blood Pressure 159/115 H 09/23/22 01:54 Pulse Oximetry 100 09/23/22 01:54 Oxygen Delivery Non-Rebreather Mask 09/23/22 01:54 Oxygen Flow Rate 15 09/23/22 01:54 Pulse Rate 112 H 09/23/22 02:07 Respiratory Rate 30 H 09/23/22 01:54 Blood Pressure 159/115 H 09/23/22 01:54 Pulse Oximetry 100 09/23/22 02:23 Oxygen Delivery Nasal Cannula 09/23/22 02:23 Oxygen Flow Rate 5 09/23/22 02:23 Procedures EJ/Peripheral Line Arm R: Time Out Performed: No Skin Cleansed in Sterile Fashion: Yes Ultrasound Guided: No Size (gauge): 20 IV Secured and Dressing Applied: Yes
[2022-09-23] MEDS: IPRATROPIUM BR 0.02% INH SOLN 0.5 MG/2.5 ML VIAL 1.5 MG INHALATION (02:31)
[2022-09-23] MEDS: ALBUTEROL SULFATE NEB 2.5 MG/3 ML INH 15 MG INHALATION (02:31)
[2022-09-23 02:34] LABS: Alveolar/Arterial O2 Gradient 144.5 mmHg; Base Excess ABG -6.9 mEq/l (+/-2.0); Fractional Inspired Oxygen 40 %; HCO3 ABG 16.9 mEq/l (22.0-26.0); Oxygen Content ABG 15.4 %vol (16.0-22.0); Oxyhemoglobin 96.5 % THb (90.0-100.0); PCO2 ABG 28.6 mmHg (35.0-45.0); PO2 ABG 107.8 mmHg (80.0-100.0); Total Hemoglobin 11.2 g/dL (12.0-18.0); pH ABG 7.389 (7.350-7.450)
[2022-09-23 02:35] LABS: Modified Allen's Test Pass; Site Drawn RIGHT RADIAL
[2022-09-23 02:36] LABS: Device HIGH FLOW NASAL CANN
[2022-09-23 02:45] LABS: INR 1.2; Partial Thromboplastin Time 32.2 SECONDS (22.3-36.8); Prothrombin Time 14.6 Seconds (11.1-14.7)
[2022-09-23 02:46] LABS: Alanine Aminotransferase 37 U/L (6-35); Albumin Level 3.8 g/dL (3.5-5.1); Alkaline Phosphatase 68 U/L (38-126); Anion Gap 5 mmol/L (8-16); Aspartate Amino Transferase 46 U/L (14-36); Bilirubin,Total 0.4 mg/dL (0.2-1.3); Blood Urea Nitrogen 50 mg/dL (7-17); Carbon Dioxide 20 mmol/L (22-30); Chloride 117 mmol/L (98-107); Estimated Glomerular Filt Rate 19; Glucose 100 mg/dL (65-110); Lactic Acid Reflex 2.4 mmol/L (0.7-2.0); Potassium 4.8 mmol/L (3.4-5.0); Sodium 142 mmol/L (137-145)
[2022-09-23 02:46] LABS: Influenza A QL RT-PCR Negative (Negative); Influenza B QL RT-PCR Negative (Negative); SARS-CoV-2 RNA PCR Negative
[2022-09-23 02:54] LABS: NT Pro B Type Natriuretic Pept 14500 pg/mL (5-100)
[2022-09-23] MEDS: SODIUM CHLORIDE 0.9% IV 1,000 ML 999 ML IV CONT (03:00)
[2022-09-23 03:22] LABS: Lipase 151 U/L (23-300)
--- NOTE | 2022-09-23 03:34 | PC.NURSE ---
Failed attempt at Straight cath at this time.
[2022-09-23 03:35] LABS: Troponin I 0.075 ng/mL (0.000-0.034)
[2022-09-23 03:39] LABS: Basophils Absolute Auto 0.1 K/mm3 (0.0-0.1); Basophils Percent Auto 0.4 % (0.2-1.2); Eosinophils Absolute Auto 0.1 K/mm3 (0-0.3); Eosinophils Percent Auto 0.4 % (0-4.4); Hematocrit 34.3 % (37.0-47.0); Hemoglobin 10.5 g/dL (12.0-15.0); Immature Granulocyte Absolute 0.09 K/mm3 (0.00-0.031); Immature Granulocyte Percent A 0.5 % (0-0.5); Lymphocytes Absolute Auto 2.05 K/mm3 (0.9-3.2); Lymphocytes Percent Auto 10.8 % (18.3-44.2); Mean Corpuscular HGB Conc 30.6 g/dl (32-36); Mean Corpuscular Hemoglobin 29.7 pg (26-34); Mean Corpuscular Volume 97.2 fl (80-100); Mean Platelet Volume 11.2 fl (7.4-10.4); Monocytes Absolute Auto 0.8 K/mm3 (0.1-0.6); Monocytes Percent Auto 4.4 % (2.6-8.5); Neutrophils Absolute Auto 15.9 K/mm3 (1.3-6.7); Neutrophils Percent Auto 83.5 % (45.5-73.1); Platelet Count Result 417 k/mm3 (150-375); Red Blood Count 3.53 M/mm3 (4.2-5.4); Red Cell Distribution Width 13.9 % (11.5-14.5)
[2022-09-23 04:30] LABS: Appearance Urine Clear (Clear); Bilirubin Urine 1+ (Negative); Blood Urine 1+ (Negative); Color Urine Yellow (Yellow); Glucose Urine UA Negative (Negative); Ketones Urine Negative (Negative); Leukocyte Esterase Ur Negative LEU/UL (Negative); Nitrate Urine Negative (Negative); Protein Urine 2+ mg/dL (Negative); Urobilinogen Urine 0.2 mg/dL (<2.0)
[2022-09-23 04:38] LABS: Bacteria Urine Trace /hpf; Mucus Urine Rare /lpf; RBC Urine 0-2 /hpf (0-2); Squamous Epithelial Cell Urine Rare /hpf (Few)
[2022-09-23 04:41] LABS: Add Urine Microscopic? YES
[2022-09-23] MEDS: ENOXAPARIN 60 MG/0.6 ML SYRINGE 48 MG SUB-Q (05:15)
[2022-09-23] MEDS: FUROSEMIDE INJ 40 MG/4 ML VIAL IV PUSH (05:17)
[2022-09-23 05:31] LABS: Reflex Lactic Acid Yes or No Add Lactic
[2022-09-23 06:00] LABS: Troponin I 0.078 ng/mL (0.000-0.034)
--- NOTE | 2022-09-23 07:18 | PC.NURSE ---
Report given to TORREY Shea RN.
--- NOTE | 2022-09-23 08:00 | PC.NURSE ---
pt continuously taking off cardiac monitors leads, temporal pulse ox and nasal cannula. these have been replaced multiple times.
--- NOTE | 2022-09-23 09:09 | ADMGEN ---
This patient, Bridget Alaniz, was admitted to IMU Room 206-02 at 0857 on 09/23/2022. Patient/family oriented to hospital policies and general routines including ID bracelet, bed and alarms, visiting hours, pain management, procedures, bathroom and other care routines, personal items, smoking policy, room service/diet, and visiting hours. Information on how to activate the Rapid Response Team has been discussed. Patient/Family are encouraged to report perceived risks to care and to ask questions if they do not understand what they are told or what they should do.
--- NOTE | 2022-09-23 09:33 | PM.IMHP ---
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 [facility] of respiratory distress. The patient is alert and oriented to self only at baseline and unable to provide any medical information. No family or guardian is available for interview. Health history and present illness information obtained from ED and primary medical records. The patient was reportedly found to have difficulty breathing. EMS reported spO2 in the 80s on 4L nasal cannula all day. Upon arrival to the ED, the patient was noted to be tachypneic with respirations in the 30s, tachycardic with heart rate 112 bpm, and requiring 15 liters NRB to keep spO2 >90%. Lab work showed WBC 19, hgb 10.5, hct 34.3%, BUN 50, creatinine 2.5, eGFR 19, lactic acid 2.4, BNP 14,500, glucose 100, sodium 142, and troponin 0.078. ABG showed pH 7.38, PaCO2 28, PaO2 107, and bicarb 16.9. Chest X-ray showed hyperinflated lungs, but no obvious consolidation, infiltrates or edema. COVID and influenza A/B was negative. UA was unremarkable for acute infection. EKG was concerning for new afib RVR 116 bpm with nonspecific T-wave changes. She was initially treated with 1 liter NS fluids, but then given lasix 40 mg IV x1 and lovenox 1 mg/kg SQ x1. She was admitted to IMU for further management of acute respiratory failure. Review of Systems Review of Systems: ROS unobtainable: Yes unobtainable due to mental status [facility] Past Medical History Medical History (Updated 09/23/22 @ 17:25 by Aleida Oliva, RADHA) Anemia Carotid stenosis CHF (congestive heart failure) 08/13/22 Echo: EF 40-45%, diastolic dysfunction (E/e' 26), mod LAE, mod MAC, mod-severe MR. CKD (chronic kidney disease) Colonic mass (~07/2021) COPD (chronic obstructive pulmonary disease) Dementia Depression History of stroke (Unknown) Hypertension (Unknown) Tobacco dependence (Unknown) Surgical History Surgical History Hx of cataract surgery Family History Family History Mother Diabetes mellitus Social History Social History (Updated 09/23/22 @ 16:59 by Aleida Oliva APRN) Smoking status: Former smoker Tobacco type: cigarettes Alcohol intake: never Substance use: never Substance use type: does not use Spiritual care concerns: No Meds Home Medications and Allergies Home Medications Medication Instructions Recorded Confirmed Type albuterol 90 mcg/actuation aerosol 180 mcg inhalation Q4H PRN 08/13/22 09/23/22 History inhaler Shortness Of Breath ergocalciferol (vitamin D2) 1,250 1,250 mcg PO WEEKLY 08/13/22 09/23/22 History mcg (50,000 unit) capsule ipratropium 0.5 mg-albuterol 3 mg 3 ml inhalation Q4H PRN Shortness 08/13/22 09/23/22 History (2.5 mg base)/3 mL nebulization Of Breath soln megestrol 400 mg/10 mL (40 mg/mL) 400 mg PO DAILY 08/13/22 09/23/22 History oral suspension mirtazapine 15 mg tablet 15 mg PO DAILY 08/13/22 09/23/22 History multivitamin with iron 1 tablet PO DAILY 08/13/22 09/23/22 History Allergies Allergy/AdvReac Type Severity Reaction Status Date / Time lidocaine Allergy Unknown Unknown Verified 08/12/22 22:05 procaine Allergy Unknown Unknown Verified 08/12/22 22:05 Vital Signs Vital Signs - 24 hr 09/23/22 01:54 09/23/22 02:07 09/23/22 02:23 Temperature Pulse Rate 110 H 112 H Respiratory Rate 30 H Blood Pressure 159/115 H Pulse Oximetry 100 100 Oxygen Delivery Non-Rebreather Mask Nasal Cannula Oxygen Flow Rate 15 5 09/23/22 02:27 09/23/22 03:48 09/23/22 04:00 Temperature 98.7 F Pulse Rate 116 H 108 H 124 H Respiratory Rate 1
[2022-09-23 10:11] LABS: Lactic Acid 2.1 mmol/L (0.7-2.0)
[2022-09-23 12:30] LABS: Estimated Glomerular Filt Rate 19
[2022-09-23 14:05] LABS: Lactic Acid Reflex 1.5 mmol/L (0.7-2.0)
[2022-09-23 17:33] LABS: Glucose Point of Care 98 mg/dl (65-105)
[2022-09-23] MEDS: methylPREDNISolone SOD SUCC 40 MG VIAL IV PUSH (18:28)
[2022-09-23] MEDS: metroNIDAZOLE 500 MG/ISO 100ML 500 MG/100 ML BAG 100 MG IVPB (18:29)
[2022-09-24] VITALS (23 sets, daily range): BP systolic 98–135; BP diastolic 59–77; PULSE 54–150; RESP 16–24; TEMP 35.8–36.6; O2SAT 90–100
[2022-09-24] MEDS: metroNIDAZOLE 500 MG/ISO 100ML 500 MG/100 ML BAG 100 MG IVPB ×3 (03:18→16:11)
[2022-09-24] MEDS: methylPREDNISolone SOD SUCC 40 MG VIAL IV PUSH ×4 (03:18→21:03)
--- NOTE | 2022-09-24 03:31 | ECG_ITS ---
Rate 143 OR 0 QRSd 148 QT 333 QTc 514 --[place]-- P QRS 3 T 157 ATRIAL FIBRILLATION WITH RAPID VENTRICULAR RESPONSE LEFT BUNDLE BRANCH BLOCK [120+ ms QRS DURATION, 80+ ms Q/S IN V1/V2, 85+ ms R IN I/aVL/V5/V6] Electronically Signed On 09-24-2022 10:22:53 LASER ENGINEER by Darrius Bustos M.D. COMPARED TO ECG 09/23/2022 02:58:17 ATRIAL FIBRILLATION NOW PRESENT LEFT BUNDLE-BRANCH BLOCK NOW PRESENT MTDD
[2022-09-24] MEDS: METOPROLOL TARTRATE INJ 5 MG/5 ML VIAL IV PUSH (04:18)
[2022-09-24 05:17] LABS: Alanine Aminotransferase 35 U/L (6-35); Albumin Level 3.7 g/dL (3.5-5.1); Alkaline Phosphatase 71 U/L (38-126); Anion Gap 13 mmol/L (8-16); Aspartate Amino Transferase 40 U/L (14-36); Bilirubin,Total 0.5 mg/dL (0.2-1.3); Blood Urea Nitrogen 55 mg/dL (7-17); Calcium 9.2 mg/dL (8.4-10.2); Carbon Dioxide 19 mmol/L (22-30); Chloride 117 mmol/L (98-107); Estimated CRCL calculation 10 ml/min; Estimated Glomerular Filt Rate 17; Glucose 120 mg/dL (65-110); Magnesium 1.9 mg/dL (1.6-2.3); Potassium 4.8 mmol/L (3.4-5.0); Sodium 149 mmol/L (137-145)
[2022-09-24 05:38] LABS: Basophils Percent Auto 0.1 % (0.2-1.2); Hematocrit 31.3 % (37.0-47.0); Hemoglobin 9.4 g/dL (12.0-15.0); Immature Granulocyte Percent A 0.7 % (0-0.5); Lymphocytes Absolute Auto 0.39 K/mm3 (0.9-3.2); Lymphocytes Percent Auto 2.6 % (18.3-44.2); Mean Corpuscular Hemoglobin 29.3 pg (26-34); Mean Corpuscular Volume 97.5 fl (80-100); Mean Platelet Volume 11.1 fl (7.4-10.4); Monocytes Absolute Auto 0.1 K/mm3 (0.1-0.6); Monocytes Percent Auto 0.5 % (2.6-8.5); Neutrophils Absolute Auto 14.6 K/mm3 (1.3-6.7); Neutrophils Percent Auto 96.1 % (45.5-73.1); Platelet Count Result 329 k/mm3 (150-375); Red Blood Count 3.21 M/mm3 (4.2-5.4); Red Cell Distribution Width 13.8 % (11.5-14.5); White Blood Count 15.2 K/mm3 (4.5-10.0)
[2022-09-24 06:38] LABS: Crenated RBC 1+ (NORMAL); Ovalocytes 1+ (NORMAL); Platelet Estimate Adequate (Adequate); Schistocytes None Seen (NORMAL)
--- NOTE | 2022-09-24 07:41 | PM.IMPN ---
Progress Note: A&P Assessment and Plan (1) Respiratory failure: Qualifiers: Chronicity: acute Respiratory failure complication: hypoxia Qualified Code(s): J96.01 - Acute respiratory failure with hypoxia Code(s): J96.90 - Respiratory failure, unspecified, unspecified whether with hypoxia or hypercapnia Status: Acute Assessment and Plan: Appears 2/2 acute CHF exacerbation, acute COPD exacerbation and possible underlying pneumonia. continue supplemental O2 to keep sats >92%. Wean as tolerated. ABG- no hypercapnia and hypoxia improved with 5L O2. Patient has been recently hospitalized and does not appear very mobile. +tachycardia, hypoxia and tachypnea. With patient's renal function and eGFR 19, CTA chest r/o PE is contraindicated. Additionally, with patient's mental status she is unlikely to be able to complete VQ scan. She is on empiric lovenox currently for afib RVR, however, she is not a good candidate for long-term antibiotics. R/O aspiration pneumonia and continue empiric antibiotic coverage. Modified swallow study in am. (2) Sepsis: Qualifiers: Acute respiratory failure type: with hypoxia Sepsis acute organ dysfunction status: with acute organ dysfunction Sepsis type: sepsis due to unspecified organism Severe sepsis shock status: without septic shock Code(s): A41.9 - Sepsis, unspecified organism Status: Acute Assessment and Plan: Patient meets sepsis criteria with RR>20, HR>90, WBC>12, and elevated lactic acid. Likely secondary to respiratory infection and possible bacteremia. WBC 19 on admission with left shift and no known recent steroid use. WBC downtrending. CXR without infiltrates or consolidation, however, patient with leukocytosis, hypoxia and tachypnea. Started empiric broad-spectrum antibiotics d/t recent hospitalization in July and antibiotic use, as well as emperic coverage for aspiration possible aspiration pneumonia. Abx started 09/23/22. Continue x7-10 days. Lactic acid 2.4 to 1.5 and improved. IV fluids held d/t concern for CHF exacerbation. 09/23 blood cultures positive gram cocci in both bottles. She is currently on IV Vancomycin which would cover these organisms. Repeat blood cultures tomorrow morning after 48 hours of antibiotics. (3) Atrial fibrillation with rapid ventricular response: Code(s): I48.91 - Unspecified atrial fibrillation Status: Acute Assessment and Plan: EKG- afib with RVR per ED provider. Cardiology reread suggests ST with frequent PACs. Likely 2/2 to acute respiratory disease. Lovenox 1 mg/kg SQ Q24 hours (renally dosed) given in ED and continued on admission. Monitor telemetry. Keep K>4 and Mag>2 Started metoprolol 12.5 mg PO BID on admission, however patient was unable to swallow. Overnight, HR was 150 bpm and IV metoprolol was started PRN. HR improved but still elevated afib 110-140s. At 0900, patient noted to have afib RVR with LBBB 140s. Amiodarone 150 mg bolus with gtt per protocol started. Patient converted to SR at approximately 1200. Cardiology consulted and appreciate recommendations. [id number] score 7 high risk for stroke. HAS-BLED score 4 high risk for major bleeding. Given the patient's dementia she is not a good candidate for long-term anticoagulation. This was discussed with her son, who is her primary decision maker. As the patient is unable to take PO medications at this time, will continue lovenox. (4) COPD (chronic obstructive pulmonary disease): Qualifiers: COPD type: emphysema Emphysema type: unspecified Qualified Code(s): J43.9 - Emphysema, unspecified Code(s): J44.9 - Chronic obstructive pulmonary disease, unspecified Status: Acute Assessment and Plan: +wheezing and hyperinflation on chest x-ray. Known COPD. Started solu-medrol 40 mg IV Q 6 hours on admission, improvement in wheezing- decreased to 40 mg IV Q8 hours. Change xopenex Q6 hour
[2022-09-24] MEDS: ENOXAPARIN 60 MG/0.6 ML SYRINGE 45 MG SUB-Q (09:06)
[2022-09-24] MEDS: AMIODARONE 150 MG/D5W 100 ML 150 MG/100 ML BAG 600 MG IV CONT (09:33)
[2022-09-24] MEDS: AMIODARONE 360 MG/D5W 200 ML 360 MG/200 ML BAG 33.33 MG IV CONT (10:16)
[2022-09-24] MEDS: MAGNESIUM SULF 1 GM/D5W 100 ML 1 GM/100 ML BAG IVPB (10:16)
--- NOTE | 2022-09-24 10:17 | PCSTNOTE ---
Please refer to the Bedside Swallow Evaluation in the EMR. Please note, silent aspiration cannot be ruled out at bedside.
--- NOTE | 2022-09-24 12:13 | PM.CNCAR ---
Assessment and Plan Assessment and plan (1) Atrial fibrillation with rapid ventricular response: Code(s): I48.91 - Unspecified atrial fibrillation Status: Acute Assessment and Plan: New onset. Probably due to respiratory status and age. [id number] 6. Given risk of bleeding and comorbidities, would start her on aspirin 325 mg daily. On Amiodarone drip and has converted to sinus rhythm currently. Continue for 24 hours then change to PO dosing. (2) Sepsis: Qualifiers: Sepsis type: sepsis due to unspecified organism Sepsis acute organ dysfunction status: with acute organ dysfunction Acute respiratory failure type: with hypoxia Severe sepsis shock status: without septic shock Code(s): A41.9 - Sepsis, unspecified organism Status: Acute Assessment and Plan: On antibiotics per hospitalist. (3) COPD (chronic obstructive pulmonary disease): Qualifiers: COPD type: emphysema Emphysema type: unspecified Qualified Code(s): J43.9 - Emphysema, unspecified Code(s): J44.9 - Chronic obstructive pulmonary disease, unspecified Status: Acute Assessment and Plan: Management as per hospitalist. (4) CHF (congestive heart failure): Code(s): I50.9 - Heart failure, unspecified Status: Acute Assessment and Plan: Clinically she appear to be euvolemic or on dry side. Would hold off on diuretics. History of Present Illness History of Present Illness Consult date/time: 09/24/22 12:13 Reason For Visit: chf Narrative: 82 yr old woman who I saw once in hospital on 08/10/21 for syncope and then again for CHF in Jul 2022.? She has a history of old systolic and diastolic heart failure, multiple bilateral stroke, dementia, COPD, smoking, NSVT on event monitor. She is demented and only gave me her name and no other information.?She was [facility] due to sob and wheezing and fast HR. Noted she was in new onset atrial fibrillation. She smokes 2-3 cigarettes per day down from 2 ppd.? Denies chest pain, orthopnea, PND, edema, dizziness, palpitations. Review of Systems Review of Systems: All systems reviewed & are unremarkable except as noted in HPI and below ROS unobtainable: Yes unobtainable due to medical condition and unobtainable due to mental status [facility] Past Medical History Medical History (Updated 09/24/22 @ 12:17 by Kraig Madison, ) Anemia Carotid stenosis CHF (congestive heart failure) 08/13/22 Echo: EF 40-45%, diastolic dysfunction (E/e' 26), mod LAE, mod MAC, mod-severe MR. CKD (chronic kidney disease) Colonic mass (~07/2021) COPD (chronic obstructive pulmonary disease) Dementia Depression History of stroke (Unknown) Hypertension (Unknown) Tobacco dependence (Unknown) Surgical History Surgical History Hx of cataract surgery Family History Family History Mother Diabetes mellitus Social History Social History (Updated 09/23/22 @ 16:59 by Aleida Oliva APRN) Smoking status: Former smoker Tobacco type: cigarettes Alcohol intake: never Substance use: never Substance use type: does not use Living arrangements: prison Spiritual care concerns: No Meds Home Medications and Allergies Home Medications Medication Instructions Recorded Confirmed Type albuterol 90 mcg/actuation aerosol 180 mcg inhalation Q4H PRN 08/13/22 09/23/22 History inhaler Shortness Of Breath ergocalciferol (vitamin D2) 1,250 1,250 mcg PO WEEKLY 08/13/22 09/23/22 History mcg (50,000 unit) capsule ipratropium 0.5 mg-albuterol 3 mg 3 ml inhalation Q4H PRN Shortness 08/13/22 09/23/22 History (2.5 mg base)/3 mL nebulization Of Breath soln megestrol 400 mg/10 mL (40 mg/mL) 400 mg PO DAILY 08/13/22 09/23/22 History oral suspension mirtazapine 15 mg tablet 15 mg PO DAILY 08/13/22 09/23/22 H
--- NOTE | 2022-09-24 15:29 | PCPTNOTE ---
Per nursing, pt is a senior care patient for her PLOF. Attempted therapy evaluation. Pt responded to her name, and demo's ability to perform one step command with squeeze my finger . Pt declines all other requests for movement and activity. Thus pt not appropriate for therapy at this time. Discussed this with nursing and advised should pt demeanor change and she is able and willing to follow instruction to re-order therapy evaluatoin.
[2022-09-24] MEDS: AMIODARONE 360 MG/D5W 200 ML 360 MG/200 ML BAG 16.67 MG IV CONT (16:10)
[2022-09-25] VITALS (15 sets, daily range): BP systolic 114–144; BP diastolic 56–97; PULSE 57–79; RESP 16–24; TEMP 36.1–36.6; O2SAT 95–100
[2022-09-25] MEDS: metroNIDAZOLE 500 MG/ISO 100ML 500 MG/100 ML BAG 100 MG IVPB ×3 (00:12→17:21)
[2022-09-25] MEDS: AMIODARONE 360 MG/D5W 200 ML 360 MG/200 ML BAG 16.67 MG IV CONT (03:28)
[2022-09-25 05:10] LABS: Basophils Percent Auto 0.1 % (0.2-1.2); Hematocrit 27.8 % (37.0-47.0); Hemoglobin 8.5 g/dL (12.0-15.0); Immature Granulocyte Absolute 0.12 K/mm3 (0.00-0.031); Immature Granulocyte Percent A 0.8 % (0-0.5); Lymphocytes Absolute Auto 0.61 K/mm3 (0.9-3.2); Lymphocytes Percent Auto 4.1 % (18.3-44.2); Mean Corpuscular HGB Conc 30.6 g/dl (32-36); Mean Corpuscular Hemoglobin 29.6 pg (26-34); Mean Corpuscular Volume 96.9 fl (80-100); Monocytes Absolute Auto 0.2 K/mm3 (0.1-0.6); Monocytes Percent Auto 1.2 % (2.6-8.5); Neutrophils Absolute Auto 14.1 K/mm3 (1.3-6.7); Neutrophils Percent Auto 93.8 % (45.5-73.1); Platelet Count Result 346 k/mm3 (150-375); Red Blood Count 2.87 M/mm3 (4.2-5.4); Red Cell Distribution Width 13.8 % (11.5-14.5)
[2022-09-25] MEDS: methylPREDNISolone SOD SUCC 40 MG VIAL IV PUSH ×2 (05:28→17:22)
[2022-09-25 05:29] LABS: Alanine Aminotransferase 29 U/L (6-35); Albumin Level 3.6 g/dL (3.5-5.1); Alkaline Phosphatase 61 U/L (38-126); Anion Gap 13 mmol/L (8-16); Aspartate Amino Transferase 33 U/L (14-36); Bilirubin,Total 0.3 mg/dL (0.2-1.3); Blood Urea Nitrogen 66 mg/dL (7-17); Calcium 8.9 mg/dL (8.4-10.2); Carbon Dioxide 17 mmol/L (22-30); Chloride 114 mmol/L (98-107); Estimated CRCL calculation 9 ml/min; Estimated Glomerular Filt Rate 16; Glucose 116 mg/dL (65-110); Potassium 4.6 mmol/L (3.4-5.0); Sodium 144 mmol/L (137-145)
--- NOTE | 2022-09-25 06:58 | PM.IMPN ---
Progress Note: A&P Assessment and Plan (1) Respiratory failure: Qualifiers: Chronicity: acute Respiratory failure complication: hypoxia Qualified Code(s): J96.01 - Acute respiratory failure with hypoxia Code(s): J96.90 - Respiratory failure, unspecified, unspecified whether with hypoxia or hypercapnia Status: Acute Assessment and Plan: Appears 2/2 acute CHF exacerbation, acute COPD exacerbation and possible underlying pneumonia. continue supplemental O2 to keep sats >92%. Wean as tolerated. ABG- no hypercapnia and hypoxia improved with 5L O2. Patient has been recently hospitalized and does not appear very mobile. +tachycardia, hypoxia and tachypnea. With patient's renal function and eGFR 19, CTA chest r/o PE is contraindicated. Additionally, with patient's mental status she is unlikely to be able to complete VQ scan. She is on empiric lovenox currently for afib RVR, however, she is not a good candidate for long-term antibiotics. R/O aspiration pneumonia and continue empiric antibiotic coverage. Modified swallow study showed silent aspiration with thin liquids. (2) Sepsis: Qualifiers: Acute respiratory failure type: with hypoxia Sepsis acute organ dysfunction status: with acute organ dysfunction Sepsis type: sepsis due to unspecified organism Severe sepsis shock status: without septic shock Code(s): A41.9 - Sepsis, unspecified organism Status: Acute Assessment and Plan: Patient meets sepsis criteria with RR>20, HR>90, WBC>12, and elevated lactic acid. Likely secondary to respiratory infection and possible bacteremia. WBC 19 on admission with left shift and no known recent steroid use. WBC downtrending. CXR without infiltrates or consolidation, however, patient with leukocytosis, hypoxia and tachypnea. Started empiric broad-spectrum antibiotics d/t recent hospitalization in July and antibiotic use, as well as emperic coverage for aspiration possible aspiration pneumonia. Abx started 09/23/22. Continue x7-10 days. Lactic acid 2.4 to 1.5 and improved. IV fluids held d/t concern for CHF exacerbation. 09/23 blood cultures positive gram cocci in both bottles. She is currently on IV Vancomycin which would cover these organisms. Repeat blood cultures tomorrow morning after 48 hours of antibiotics. 09/25 Initial blood cultures with enterococcus growth in both sets. Repeat blood cultures drawn today (3) Aspiration pneumonia: Qualifiers: Aspiration pneumonia type: due to regurgitated food Laterality: unspecified laterality Lung location: unspecified part of lung Qualified Code(s): J69.0 - Pneumonitis due to inhalation of food and vomit Code(s): J69.0 - Pneumonitis due to inhalation of food and vomit Status: Acute Assessment and Plan: Presumed aspiration pneumonia given sepsis picture, acute respiratory failure and modified swallow study. Continue Vancomycin pharmacy to dose, Cefepime pseudomonas dose adjusted for renal function and metronidazole for atypical coverage. Aspiration precautions Transition to oral augmentin when able to take PO. MRSA nasal swab pending. (4) Atrial fibrillation with rapid ventricular response: Code(s): I48.91 - Unspecified atrial fibrillation Status: Acute Assessment and Plan: EKG- afib with RVR per ED provider. Cardiology reread suggests ST with frequent PACs. Likely 2/2 to acute respiratory disease. Lovenox 1 mg/kg SQ Q24 hours (renally dosed) given in ED and continued on admission. Monitor telemetry. Keep K>4 and Mag>2 Started metoprolol 12.5 mg PO BID on admission, however patient was unable to swallow. Overnight, HR was 150 bpm and IV metoprolol was started PRN. HR improved but still elevated afib 110-140s. At 0900, patient noted to have afib RVR with LBBB 140s. Amiodarone 150 mg bolus with gtt per protocol started. Patient converted to SR at approximately 1200. Cardiology consul
--- NOTE | 2022-09-25 07:59 | PM.PNCARD ---
Progress Note: A&P Assessment and Plan (1) Atrial fibrillation with rapid ventricular response: Code(s): I48.91 - Unspecified atrial fibrillation Status: Acute Assessment and Plan: New onset. Probably due to respiratory status and age. [id number] 6. Currently on Lovenox. Given risk of bleeding with anemia, would leave her on aspirin 325 mg daily if she is able to take PO once discharged. On Amiodarone drip and has converted to sinus rhythm currently. Continue for 24 hours then change to PO dosing. Unfortunately she is unable to take PO including pills. Will stop Amiodarone drip and if she has recurrence of atrial fib with RVR then will have to resume drip. (2) Sepsis: Qualifiers: Sepsis type: sepsis due to unspecified organism Sepsis acute organ dysfunction status: with acute organ dysfunction Acute respiratory failure type: with hypoxia Severe sepsis shock status: without septic shock Code(s): A41.9 - Sepsis, unspecified organism Status: Acute Assessment and Plan: On antibiotics per hospitalist. (3) COPD (chronic obstructive pulmonary disease): Qualifiers: COPD type: emphysema Emphysema type: unspecified Qualified Code(s): J43.9 - Emphysema, unspecified Code(s): J44.9 - Chronic obstructive pulmonary disease, unspecified Status: Acute Assessment and Plan: Management as per hospitalist. (4) CHF (congestive heart failure): Code(s): I50.9 - Heart failure, unspecified Status: Acute Assessment and Plan: Clinically she appear to be euvolemic or on dry side. Would hold off on diuretics. Subjective Date/time seen: 09/25/22 07:59 Interval history: She is more alert today but essentially nonverbal. Exam Const: General: cooperative and comfortable Resp: Auscultation: no crackles, no rhonchi and wheezes Cardio: Rate: regular rate Rhythm: regular rhythm Heart sounds: no murmurs Peripheral pulses: dorsalis pedis present GI: GI Palp: No abdominal tenderness and Yes Soft to palpation Neuro: General: No oriented to place and No oriented to time Extrem: Right lower extremity: no edema Left lower extremity: no edema Objective Data Vital Signs Vital Signs: Vital Signs - 24 hr 09/24/22 08:00 09/24/22 09:33 09/24/22 09:43 Temperature 96.4 F L Pulse Rate 124 H 129 H 117 H Respiratory Rate 24 H 18 Blood Pressure 122/74 122/74 Pulse Oximetry 97 Oxygen Delivery Oxygen Flow Rate 09/24/22 09:44 09/24/22 09:54 09/24/22 10:16 Temperature Pulse Rate 111 H 126 H Respiratory Rate 20 Blood Pressure 122/74 Pulse Oximetry 98 Oxygen Delivery Nasal Cannula Oxygen Flow Rate 3 09/24/22 10:28 09/24/22 12:00 09/24/22 08:00 Temperature 97.1 F L Pulse Rate 80 122 H Respiratory Rate 20 Blood Pressure 120/74 Pulse Oximetry 99 99 Oxygen Delivery Nasal Cannula Oxygen Flow Rate 1 09/24/22 16:10 09/24/22 08:00 09/24/22 10:00 Temperature Pulse Rate 61 116 H Respiratory Rate Blood Pressure 120/74 Pulse Oximetry 99 Oxygen Delivery Room Air Oxygen Flow Rate 09/24/22 12:00 09/24/22 14:00 09/24/22 12:00 Temperature Pulse Rate 69 72 Respiratory Rate Blood Pressure Pulse Oximetry 100 Oxygen Delivery Room Air Oxygen Flow Rate 09/24/22 16:00 09/24/22 16:00 09/24/22 16:00 Temperature 97.1 F L Pulse Rate 66 69 Respiratory Rate 18 Blood Pressure 135/67 Pulse Oximetry 94 100 Oxygen Delivery Room Air Oxygen Flow Rate 09/24/22 18:00 09/24/22 20:00 09/24/22 20:00 Temperature 97.9 F Pulse Rate 63 70 70 Respiratory Rate 16 16 Blood Pressure 98/77 L Pulse Oximetry 95 95 Oxygen Delivery Room Air Oxygen Flow Rate 09/24/22 22:51 09/24/22 20:00 09/24/22 22:00 Temperature 97.6 F Pulse Rate 64 63 54 L Respiratory Rate 16 Blood Pressure 101/68 Pulse Oximetry 97 Oxygen Delivery Oxygen Flow Rate
--- NOTE | 2022-09-25 10:13 | PCSTNOTE ---
Please refer to the Modified Barium Swallow Evaluation in the EMR.
--- NOTE | 2022-09-25 10:15 | PCOTNOTE ---
Attempted occupational therapy evaluation. Patient is not appropriate at this time, unable to follow simple commands. Spoke with hospitalist, Aleida Oliva and agreed to cancel therapy orders at this time. Spoke at 10:15am on 09/25/22.
[2022-09-25] MEDS: ENOXAPARIN 60 MG/0.6 ML SYRINGE 45 MG SUB-Q (11:16)
[2022-09-25 15:19] LABS: Appearance Urine Slightly Cloudy (Clear); Bilirubin Urine Negative (Negative); Blood Urine 2+ (Negative); Color Urine Yellow (Yellow); Glucose Urine UA Negative (Negative); Ketones Urine Trace mg/dL (Negative); Leukocyte Esterase Ur Trace LEU/UL (Negative); Nitrate Urine Negative (Negative); Protein Urine 2+ mg/dL (Negative); Specific Grav Ur 1.025 (1.001-1.035); Urobilinogen Urine 0.2 mg/dL (<2.0)
[2022-09-25 15:23] LABS: Add Urine Microscopic? YES; Bacteria Urine Trace /hpf; Mucus Urine Rare /lpf; Squamous Epithelial Cell Urine Rare /hpf (Few)
[2022-09-25] MEDS: MIRTAZAPINE 7.5 MG TABLET PO (20:46)
[2022-09-26] VITALS (17 sets, daily range): BP systolic 131–165; BP diastolic 59–88; PULSE 52–88; RESP 16–24; TEMP 36.2–36.7; O2SAT 92–100
[2022-09-26] MEDS: metroNIDAZOLE 500 MG/ISO 100ML 500 MG/100 ML BAG 100 MG IVPB ×2 (01:36→08:06)
[2022-09-26 05:13] LABS: Basophils Percent Auto 0.1 % (0.2-1.2); Hematocrit 28.6 % (37.0-47.0); Hemoglobin 8.8 g/dL (12.0-15.0); Lymphocytes Absolute Auto 0.48 K/mm3 (0.9-3.2); Lymphocytes Percent Auto 4.6 % (18.3-44.2); Mean Corpuscular HGB Conc 30.8 g/dl (32-36); Mean Corpuscular Hemoglobin 29.4 pg (26-34); Mean Corpuscular Volume 95.7 fl (80-100); Monocytes Absolute Auto 0.3 K/mm3 (0.1-0.6); Monocytes Percent Auto 2.4 % (2.6-8.5); Neutrophils Absolute Auto 9.5 K/mm3 (1.3-6.7); Neutrophils Percent Auto 91.9 % (45.5-73.1); Platelet Count Result 358 k/mm3 (150-375); Red Blood Count 2.99 M/mm3 (4.2-5.4); Red Cell Distribution Width 13.6 % (11.5-14.5); White Blood Count 10.3 K/mm3 (4.5-10.0)
[2022-09-26 05:26] LABS: Alanine Aminotransferase 27 U/L (6-35); Albumin Level 3.6 g/dL (3.5-5.1); Alkaline Phosphatase 53 U/L (38-126); Anion Gap 2 mmol/L (8-16); Aspartate Amino Transferase 27 U/L (14-36); Bilirubin,Total 0.4 mg/dL (0.2-1.3); Blood Urea Nitrogen 75 mg/dL (7-17); Calcium 8.5 mg/dL (8.4-10.2); Carbon Dioxide 20 mmol/L (22-30); Chloride 116 mmol/L (98-107); Estimated CRCL calculation 9 ml/min; Estimated Glomerular Filt Rate 16; Glucose 114 mg/dL (65-110); Potassium 5.2 mmol/L (3.4-5.0); Sodium 138 mmol/L (137-145)
[2022-09-26] MEDS: methylPREDNISolone SOD SUCC 40 MG VIAL IV PUSH (05:54)
[2022-09-26] MEDS: ENOXAPARIN 60 MG/0.6 ML SYRINGE 45 MG SUB-Q (08:06)
--- NOTE | 2022-09-26 08:15 | ECG_ITS ---
Measurements Intervals [place] Rate: 72 P: 73 VA: 166 QRS: 44 QRSD: 97 T: 72 QT: 429 QTc: 473 Interpretive Statements SINUS RHYTHM PROBABLE INFERIOR MYOCARDIAL INFARCTION , PROBABLY OLD [35 ms Q WAVE IN II/aVF] COMPARED TO ECG 09/24/2022 09:11:48 SINUS RHYTHM NOW PRESENT Electronically Signed On 09-27-2022 11:10:05 [employer] MACHINE OPERATOR by Darrius Bustos M.D.
--- NOTE | 2022-09-26 08:15 | PM.PNCARD ---
Progress Note: A&P Assessment and Plan (1) Atrial fibrillation with rapid ventricular response: Code(s): I48.91 - Unspecified atrial fibrillation Status: Acute Assessment and Plan: New onset. Probably due to respiratory status and age. [id number] 6. Currently on Lovenox. Given risk of bleeding with anemia, would leave her on aspirin 325 mg daily. On Amiodarone drip and has converted to sinus rhythm currently. Continued for 24 hours then change to PO dosing. Stop Amiodarone drip and start Amiodarone 200 mg PO daily to maintain sinus rhythm. Check EKG. (2) Sepsis: Qualifiers: Sepsis type: sepsis due to unspecified organism Sepsis acute organ dysfunction status: with acute organ dysfunction Acute respiratory failure type: with hypoxia Severe sepsis shock status: without septic shock Code(s): A41.9 - Sepsis, unspecified organism Status: Acute Assessment and Plan: On antibiotics per hospitalist. (3) COPD (chronic obstructive pulmonary disease): Qualifiers: COPD type: emphysema Emphysema type: unspecified Qualified Code(s): J43.9 - Emphysema, unspecified Code(s): J44.9 - Chronic obstructive pulmonary disease, unspecified Status: Acute Assessment and Plan: Management as per hospitalist. (4) CHF (congestive heart failure): Code(s): I50.9 - Heart failure, unspecified Status: Acute Assessment and Plan: Clinically she appear to be euvolemic or on dry side. Would hold off on diuretics. Subjective Date/time seen: 09/26/22 08:15 Interval history: She is more alert today, but not responding appropriately. Exam Const: General: comfortable Orientation/consciousness: No oriented to place and No oriented to time Resp: Auscultation: no crackles, no rhonchi and wheezes Cardio: Rate: regular rate Rhythm: regular rhythm Heart sounds: no murmurs Peripheral pulses: dorsalis pedis present Neuro: General: No oriented to place and No oriented to time Extrem: Right lower extremity: no edema Left lower extremity: no edema Objective Data Vital Signs Vital Signs: Vital Signs - 24 hr 09/25/22 10:04 09/25/22 10:00 09/25/22 12:00 Temperature Pulse Rate 64 66 73 Respiratory Rate Blood Pressure Pulse Oximetry Oxygen Delivery 09/25/22 12:00 09/25/22 16:00 09/25/22 16:00 Temperature 97.1 F L 96.9 F L Pulse Rate 74 65 68 Respiratory Rate 20 24 H Blood Pressure 136/97 H 116/76 Pulse Oximetry 98 100 Oxygen Delivery 09/25/22 18:00 09/25/22 20:00 09/25/22 20:00 Temperature 97.8 F Pulse Rate 64 71 71 Respiratory Rate 16 16 Blood Pressure 114/56 L Pulse Oximetry 98 98 Oxygen Delivery Room Air 09/25/22 23:28 09/25/22 23:35 09/25/22 20:00 Temperature 97.9 F Pulse Rate 70 70 70 Respiratory Rate 16 16 Blood Pressure 144/80 H Pulse Oximetry 99 99 Oxygen Delivery Room Air 09/25/22 22:00 09/26/22 00:00 09/26/22 01:31 Temperature Pulse Rate 79 67 68 Respiratory Rate Blood Pressure Pulse Oximetry Oxygen Delivery 09/26/22 04:00 09/26/22 04:00 09/26/22 04:00 Temperature 97.1 F L Pulse Rate 76 76 73 Respiratory Rate 16 16 Blood Pressure 138/76 Pulse Oximetry 97 97 Oxygen Delivery Room Air 09/26/22 05:28 09/26/22 07:46 Temperature Pulse Rate 52 L Respiratory Rate Blood Pressure Pulse Oximetry 97 Oxygen Delivery Room Air Intake/Output Intake/Output: Intake & Output 09/23/22 09/24/22 09/25/22 09/26/22 23:59 23:59 23:59 23:59 Intake Total 5352 105 8482 100 Output Total 400 500 200 Balance 750 750 500 -100 Meds/Results Medications: Active Medications Generic Name Dose Route Start Last Admin Trade Name Freq PRN Reason Stop Dose Admin Amiodarone HCl 200 mg 09/27/22 08:00 Amiodarone Hcl 200 Mg Tablet PO DAILY@0800 [facility] Enoxaparin Sodium 45 mg 09/24/22 09:00 09/26/22 08:06 Enoxaparin 60 Mg/0.6
--- NOTE | 2022-09-26 08:20 | PM.IMPN ---
Progress Note: A&P Assessment and Plan (1) Respiratory failure: Qualifiers: Chronicity: acute Respiratory failure complication: hypoxia Qualified Code(s): J96.01 - Acute respiratory failure with hypoxia Code(s): J96.90 - Respiratory failure, unspecified, unspecified whether with hypoxia or hypercapnia Status: Acute Assessment and Plan: Appears 2/2 acute CHF exacerbation, acute COPD exacerbation and possible underlying pneumonia. continue supplemental O2 to keep sats >92%. Wean as tolerated. ABG- no hypercapnia and hypoxia improved with 5L O2. Patient has been recently hospitalized and does not appear very mobile. +tachycardia, hypoxia and tachypnea. With patient's renal function and eGFR 19, CTA chest r/o PE is contraindicated. Additionally, with patient's mental status she is unlikely to be able to complete VQ scan. She is on empiric lovenox currently for afib RVR, however, she is not a good candidate for long-term antibiotics. Likely secondary to aspiration pneumonia and continue empiric antibiotic coverage. Modified swallow study showed silent aspiration with thin liquids. (2) Sepsis: Qualifiers: Acute respiratory failure type: with hypoxia Sepsis acute organ dysfunction status: with acute organ dysfunction Sepsis type: sepsis due to unspecified organism Severe sepsis shock status: without septic shock Code(s): A41.9 - Sepsis, unspecified organism Status: Acute Assessment and Plan: Patient meets sepsis criteria with RR>20, HR>90, WBC>12, and elevated lactic acid. Likely secondary to respiratory infection and possible bacteremia. WBC 19 on admission with left shift and no known recent steroid use. WBC downtrending. CXR without infiltrates or consolidation, however, patient with leukocytosis, hypoxia and tachypnea. Started empiric broad-spectrum antibiotics d/t recent hospitalization in July and antibiotic use, as well as emperic coverage for aspiration possible aspiration pneumonia. Abx started 09/23/22. Continue x7-10 days. Lactic acid 2.4 to 1.5 and improved. IV fluids held d/t concern for CHF exacerbation. 09/23 blood cultures positive gram cocci in both bottles. She is currently on IV Vancomycin which would cover these organisms. Repeat blood cultures tomorrow morning after 48 hours of antibiotics. 09/25 Initial blood cultures with enterococcus growth in both sets. Repeat blood cultures drawn today Preliminary blood cultures from 09/25 are negative for growth to date. Initial blood cultures with Enterococcus growth are sensitive to vancomycin. She will need IV vancomycin times a total of 14 days for Enterococcus bacteremia will await midline/PICC placement until repeat blood cultures negative. (3) Aspiration pneumonia: Qualifiers: Aspiration pneumonia type: due to regurgitated food Laterality: unspecified laterality Lung location: unspecified part of lung Qualified Code(s): J69.0 - Pneumonitis due to inhalation of food and vomit Code(s): J69.0 - Pneumonitis due to inhalation of food and vomit Status: Acute Assessment and Plan: Presumed aspiration pneumonia given sepsis picture, acute respiratory failure and modified swallow study. Continue Vancomycin pharmacy to dose, Cefepime pseudomonas dose adjusted for renal function and metronidazole for atypical coverage. Aspiration precautions 08/27 change cefepime and Flagyl to augmentin 875/125 mg p.o. b.i.d. to complete antibiotic course for aspiration pneumonia. Vancomycin IV continued for Enterococcus bacteremia MRSA nasal swab negative (4) Atrial fibrillation with rapid ventricular response: Code(s): I48.91 - Unspecified atrial fibrillation Status: Acute Assessment and Plan: EKG- afib with RVR per ED provider. Cardiology reread suggests ST with frequent PACs. Likely 2/2 to acute respiratory disease. Lovenox 1 mg/kg SQ Q24 hours (renally dosed) given in ED and
[2022-09-26] MEDS: AMIODARONE HCL 200 MG TABLET PO (09:20)
[2022-09-26] MEDS: ASPIRIN 325 MG ENTERIC TABLET PO (09:51)
[2022-09-26 16:29] LABS: IFOB Positive Control Positive; Immunochemical Fecal Occult Bl Negative (N)
[2022-09-26] MEDS: AMOXICILLIN/CLAVULANATE K 875-125 MG TAB 1 TABLET PO (20:28)
[2022-09-26] MEDS: MIRTAZAPINE 7.5 MG TABLET PO (20:28)
[2022-09-27] VITALS (14 sets, daily range): BP systolic 127–155; BP diastolic 62–85; PULSE 56–93; RESP 12–28; TEMP 36.2–36.9; O2SAT 90–98; BMI 14.3
--- NOTE | 2022-09-27 | ECHOL_ITS ---
Patient Info Name: Bridget Alaniz Age: 82 years : 1940 Gender: Female Ht: 65 in Wt: 85 lbs BSA: 1.31 m2 HR: 80 bpm BP: 153 / 85 mmHg Technical Quality: Fair Exam Date: 09/27/2022 10:26 AM Exam Location: [facility] Pulmonary Exam Room: [facility] [place] Patient Status: Inpatient Admit Date: 09/23/2022 Staff Ordering Physician: Aleida Oliva APRN Reed Cleaner: Vale Montilla RDCS Attending Provider: Deb Grossman MD Referring Physician: Pj HUTTON; Exam Type: CA echo limited Study Info Indications - bacteremia eval hrt valves new afib r/o thrombus Limited two-dimensional transthoracic echocardiogram is performed. Summary 1. Limited echo to assess for endocarditis. 2. There is moderate aortic valve sclerosis. 3. The mitral valve has mildly thickened leaflets and moderately calcified annulus. 4. There is mild mitral valve regurgitation. 5. There is mild tricuspid valve regurgitation. Aortic Valve Limited echo to assess for endocarditis. The aortic valve is trileaflet. There is moderate aortic valve sclerosis. There is no aortic valve stenosis. There is no aortic valve regurgitation. No aortic valve vegetation visualized. Pulmonic Valve The pulmonic valve is not well visualized. Mitral Valve The mitral valve has mildly thickened leaflets and moderately calcified annulus. There is no mitral valve stenosis. There is mild mitral valve regurgitation. No mitral valve vegetation visualized. Tricuspid Valve RVSP is not measured. There is mild tricuspid valve regurgitation. No tricuspid valve vegetation visualized. Report Signatures
[2022-09-27 05:36] LABS: Basophils Percent Auto 0.2 % (0.2-1.2); Hematocrit 33.8 % (37.0-47.0); Hemoglobin 10.4 g/dL (12.0-15.0); Immature Granulocyte Absolute 0.13 K/mm3 (0.00-0.031); Immature Granulocyte Percent A 1.5 % (0-0.5); Lymphocytes Absolute Auto 0.78 K/mm3 (0.9-3.2); Lymphocytes Percent Auto 8.9 % (18.3-44.2); Mean Corpuscular HGB Conc 30.8 g/dl (32-36); Mean Corpuscular Hemoglobin 28.5 pg (26-34); Mean Corpuscular Volume 92.6 fl (80-100); Mean Platelet Volume 10.9 fl (7.4-10.4); Monocytes Absolute Auto 0.6 K/mm3 (0.1-0.6); Monocytes Percent Auto 6.6 % (2.6-8.5); Neutrophils Absolute Auto 7.3 K/mm3 (1.3-6.7); Neutrophils Percent Auto 82.8 % (45.5-73.1); Platelet Count Result 410 k/mm3 (150-375); Red Blood Count 3.65 M/mm3 (4.2-5.4); Red Cell Distribution Width 13.5 % (11.5-14.5); White Blood Count 8.8 K/mm3 (4.5-10.0)
[2022-09-27 05:53] LABS: Alanine Aminotransferase 28 U/L (6-35); Albumin Level 3.9 g/dL (3.5-5.1); Alkaline Phosphatase 65 U/L (38-126); Anion Gap 9 mmol/L (8-16); Aspartate Amino Transferase 26 U/L (14-36); Bilirubin,Total 0.5 mg/dL (0.2-1.3); Blood Urea Nitrogen 72 mg/dL (7-17); Calcium 8.8 mg/dL (8.4-10.2); Carbon Dioxide 21 mmol/L (22-30); Chloride 123 mmol/L (98-107); Estimated CRCL calculation 8 ml/min; Estimated Glomerular Filt Rate 15; Glucose 98 mg/dL (65-110); Potassium 4.7 mmol/L (3.4-5.0); Sodium 153 mmol/L (137-145)
--- NOTE | 2022-09-27 07:08 | PM.IMPN ---
Progress Note: A&P Assessment and Plan (1) Respiratory failure: Qualifiers: Chronicity: acute Respiratory failure complication: hypoxia Qualified Code(s): J96.01 - Acute respiratory failure with hypoxia Code(s): J96.90 - Respiratory failure, unspecified, unspecified whether with hypoxia or hypercapnia Status: Resolved Assessment and Plan: Appears 2/2 acute CHF exacerbation, acute COPD exacerbation and possible underlying pneumonia. continue supplemental O2 to keep sats >92%. Wean as tolerated. ABG- no hypercapnia and hypoxia improved with 5L O2. Patient has been recently hospitalized and does not appear very mobile. +tachycardia, hypoxia and tachypnea. With patient's renal function and eGFR 19, CTA chest r/o PE is contraindicated. Additionally, with patient's mental status she is unlikely to be able to complete VQ scan. She is on empiric lovenox currently for afib RVR, however, she is not a good candidate for long-term antibiotics. Likely secondary to aspiration pneumonia and continue empiric antibiotic coverage. Modified swallow study showed silent aspiration with thin liquids. Resolved. On room air with adequate saturations. No s/s respiratory distress. (2) Sepsis: Qualifiers: Acute respiratory failure type: with hypoxia Sepsis acute organ dysfunction status: with acute organ dysfunction Sepsis type: sepsis due to unspecified organism Severe sepsis shock status: without septic shock Code(s): A41.9 - Sepsis, unspecified organism Status: Acute Assessment and Plan: Patient meets sepsis criteria with RR>20, HR>90, WBC>12, and elevated lactic acid. Likely secondary to respiratory infection and possible bacteremia. WBC 19 on admission with left shift and no known recent steroid use. WBC downtrending. CXR without infiltrates or consolidation, however, patient with leukocytosis, hypoxia and tachypnea. Started empiric broad-spectrum antibiotics d/t recent hospitalization in July and antibiotic use, as well as emperic coverage for aspiration possible aspiration pneumonia. Abx started 09/23/22. Continue x7-10 days. Lactic acid 2.4 to 1.5 and improved. IV fluids held d/t concern for CHF exacerbation. 09/23 blood cultures positive gram cocci in both bottles. She is currently on IV Vancomycin which would cover these organisms. Repeat blood cultures tomorrow morning after 48 hours of antibiotics. 09/25 Initial blood cultures with enterococcus growth in both sets. Repeat blood cultures drawn today Preliminary blood cultures from 09/25 are negative for growth to date. Initial blood cultures with Enterococcus growth are sensitive to vancomycin. She will need IV vancomycin times a total of 14 days for Enterococcus bacteremia will await midline/PICC placement until repeat blood cultures negative. Improving. 09/25 blood cultures negative to date. Enterococcus thought to be urinary source, but unclear. TTE obtained and improved mitral regurgitation/mitral valve sclerosis. Aortic valve moderate sclerosis. No mobile thrombus/vegetation reported. Continue Vancomycin. (3) Aspiration pneumonia: Qualifiers: Aspiration pneumonia type: due to regurgitated food Laterality: unspecified laterality Lung location: unspecified part of lung Qualified Code(s): J69.0 - Pneumonitis due to inhalation of food and vomit Code(s): J69.0 - Pneumonitis due to inhalation of food and vomit Status: Acute Assessment and Plan: Presumed aspiration pneumonia given sepsis picture, acute respiratory failure and modified swallow study. Continue Vancomycin pharmacy to dose, Cefepime pseudomonas dose adjusted for renal function and metronidazole for atypical coverage. Aspiration precautions 08/27 change cefepime and Flagyl to augmentin 875/125 mg p.o. b.i.d. to complete antibiotic course for aspiration pneumonia. Vancomycin IV continued for Enterococcus bacteremia MRSA nasal swab negative
--- NOTE | 2022-09-27 07:50 | PM.PNCARD ---
Progress Note: A&P Assessment and Plan (1) Atrial fibrillation with rapid ventricular response: Code(s): I48.91 - Unspecified atrial fibrillation Status: Acute Assessment and Plan: New onset. Probably due to respiratory status and age. [id number] 6. Currently on Lovenox. Given risk of bleeding with anemia, would leave her on aspirin 325 mg daily. On Amiodarone drip and has converted to sinus rhythm currently. Continued for 24 hours then change to PO dosing. Stopped Amiodarone drip and started Amiodarone 200 mg PO daily to maintain sinus rhythm. EKG shows sinus rhythm with QTc that is OK. (2) Sepsis: Qualifiers: Sepsis type: sepsis due to unspecified organism Sepsis acute organ dysfunction status: with acute organ dysfunction Acute respiratory failure type: with hypoxia Severe sepsis shock status: without septic shock Code(s): A41.9 - Sepsis, unspecified organism Status: Acute Assessment and Plan: On antibiotics per hospitalist. (3) COPD (chronic obstructive pulmonary disease): Qualifiers: COPD type: emphysema Emphysema type: unspecified Qualified Code(s): J43.9 - Emphysema, unspecified Code(s): J44.9 - Chronic obstructive pulmonary disease, unspecified Status: Acute Assessment and Plan: Management as per hospitalist. (4) CHF (congestive heart failure): Code(s): I50.9 - Heart failure, unspecified Status: Acute Assessment and Plan: Clinically she appear to be euvolemic or on dry side. Would hold off on diuretics. Subjective Date/time seen: 09/27/22 07:50 Interval history: She is more alert today, but not responding appropriately. Exam Const: General: cooperative and comfortable Orientation/consciousness: No oriented to place and No oriented to time Resp: Auscultation: no crackles, no rhonchi and wheezes Cardio: Rate: regular rate Rhythm: regular rhythm Heart sounds: no murmurs Peripheral pulses: dorsalis pedis present Neuro: General: No oriented to place and No oriented to time Extrem: Right lower extremity: no edema Left lower extremity: no edema Objective Data Vital Signs Vital Signs: Vital Signs - 24 hr 09/26/22 08:00 09/26/22 09:20 09/26/22 08:00 Temperature 98.1 F Pulse Rate 66 64 59 L Respiratory Rate 24 H Blood Pressure 141/59 H Pulse Oximetry 99 Oxygen Delivery 12/04/22 10:00 09/26/22 11:58 09/26/22 12:00 Temperature 97.1 F L Pulse Rate 84 84 Respiratory Rate 16 Blood Pressure 131/79 Pulse Oximetry 97 99 Oxygen Delivery Room Air 09/26/22 12:00 09/26/22 14:00 09/26/22 16:00 Temperature Pulse Rate 88 85 74 Respiratory Rate Blood Pressure Pulse Oximetry Oxygen Delivery 09/26/22 16:00 09/26/22 16:00 09/26/22 17:34 Temperature 97.7 F Pulse Rate 73 Respiratory Rate 16 Blood Pressure 165/78 H 150/70 H Pulse Oximetry 97 100 Oxygen Delivery Room Air 09/26/22 18:00 09/26/22 20:00 09/26/22 20:00 Temperature 98.0 F Pulse Rate 71 68 73 Respiratory Rate 18 Blood Pressure 161/88 H Pulse Oximetry 92 Oxygen Delivery 09/26/22 20:00 09/26/22 22:00 09/26/22 23:32 Temperature 98.0 F Pulse Rate 73 64 67 Respiratory Rate 18 20 Blood Pressure 150/87 H Pulse Oximetry 92 97 Oxygen Delivery Room Air 09/27/22 00:00 09/27/22 00:00 09/27/22 02:00 Temperature Pulse Rate 56 L 57 L 57 L Respiratory Rate 20 Blood Pressure Pulse Oximetry 97 Oxygen Delivery Room Air 09/27/22 04:00 09/27/22 04:00 09/27/22 04:00 Temperature 97.9 F Pulse Rate 68 68 60 Respiratory Rate 20 20 Blood Pressure 142/80 H Pulse Oximetry 97 93 Oxygen Delivery Room Air 09/27/22 06:00 Temperature Pulse Rate 64 Respiratory Rate Blood Pressure Pulse Oximetry Oxygen Delivery Intake/Output Intake/Output: Intake & Output 09/24/22 09/25/22 09/26/22 09/27/22 23:59 23:59 23:59 23:59 Intake T
[2022-09-27] MEDS: DEXTROSE 5% 1,000 ML 1,000 ML 70 ML IV CONT (08:58)
[2022-09-27] MEDS: predniSONE 20 MG TABLET 40 MG PO (08:59)
[2022-09-27] MEDS: AMIODARONE HCL 200 MG TABLET PO (08:59)
[2022-09-27] MEDS: AMOXICILLIN/CLAVULANATE K 500-125 MG TAB 1 TABLET PO ×2 (09:00→20:36)
[2022-09-27] MEDS: ASPIRIN 325 MG ENTERIC TABLET PO (09:00)
[2022-09-27 11:30] LABS: Vancomycin Trough 10.5 ug/mL (10.0-20.0)
--- NOTE | 2022-09-27 11:30 | PCNFU ---
Nutrition Follow-Up Complete: Underweight related most likely to suboptimal po intake as evidenced by clinical appearance and noted BMI of 15.8 Goal:Diet order PO intake 50% of meals. Pt is progressing towards goal. Continue with same goal. Pt current nutrition is Level 4 pureed, level 2 thick liquids, Ensure compact TID. Nutrition recommendation: Add NIGEL BID for wound healing Last recorded weight is 39 kg - down from 43kg. Bowel Motility: +bM 09/25 Labs Reviewed: HGB:10.4, HCT:32.8, NA:153, BUN:72, Cr:3 Meds Noted: Lasix, remeron, prednisone Skin: Pt has a DTPI to Right foot and ankle Additional Notes: Pt started on a pureed diet with level 2 thickened liquids. Full assist for feeding, intake varied. Ensure compact in place. Recommend to add NIGEL BID for wound healing - will need to be thickened. Monitor for diet order, intake, wt, labs. Follow up in 7 days.
[2022-09-27 16:14] LABS: Anion Gap 9 mmol/L (8-16); Blood Urea Nitrogen 75 mg/dL (7-17); Calcium 7.9 mg/dL (8.4-10.2); Carbon Dioxide 15 mmol/L (22-30); Chloride 120 mmol/L (98-107); Estimated CRCL calculation 11 ml/min; Estimated Glomerular Filt Rate 19; Glucose 209 mg/dL (65-110); Potassium 4.6 mmol/L (3.4-5.0); Sodium 144 mmol/L (137-145)
[2022-09-27 17:54] LABS: Pneumococcal Antigen Urine Not Detected (Not Detected)
[2022-09-27] MEDS: MIRTAZAPINE 7.5 MG TABLET PO (20:36)
[2022-09-28] VITALS (7 sets, daily range): BP systolic 98–153; BP diastolic 52–79; PULSE 68–92; RESP 16–22; TEMP 36.4–36.6; O2SAT 94–100
[2022-09-28 05:18] LABS: Anion Gap 9 mmol/L (8-16); Blood Urea Nitrogen 73 mg/dL (7-17); Calcium 8.1 mg/dL (8.4-10.2); Carbon Dioxide 18 mmol/L (22-30); Chloride 119 mmol/L (98-107); Estimated CRCL calculation 11 ml/min; Estimated Glomerular Filt Rate 19; Glucose 103 mg/dL (65-110); Potassium 4.3 mmol/L (3.4-5.0); Sodium 146 mmol/L (137-145)
[2022-09-28 05:30] LABS: Hematocrit 30.9 % (37.0-47.0); Hemoglobin 9.6 g/dL (12.0-15.0); Mean Corpuscular HGB Conc 31.1 g/dl (32-36); Mean Corpuscular Hemoglobin 28.7 pg (26-34); Mean Corpuscular Volume 92.2 fl (80-100); Mean Platelet Volume 10.8 fl (7.4-10.4); Platelet Count Result 342 k/mm3 (150-375); Red Blood Count 3.35 M/mm3 (4.2-5.4); Red Cell Distribution Width 13.7 % (11.5-14.5); White Blood Count 10.5 K/mm3 (4.5-10.0)
--- NOTE | 2022-09-28 07:45 | PM.PNCARD ---
Progress Note: A&P Assessment and Plan (1) Atrial fibrillation with rapid ventricular response: Code(s): I48.91 - Unspecified atrial fibrillation Status: Acute Assessment and Plan: New onset. Probably due to respiratory status and age. [id number] 6. Currently on Lovenox. Given risk of bleeding with anemia, would leave her on aspirin 325 mg daily. On Amiodarone drip and has converted to sinus rhythm currently. Continued for 24 hours then change to PO dosing. Stopped Amiodarone drip and started Amiodarone 200 mg PO daily to maintain sinus rhythm. EKG shows sinus rhythm with QTc that is OK. (2) Sepsis: Qualifiers: Sepsis type: sepsis due to unspecified organism Sepsis acute organ dysfunction status: with acute organ dysfunction Acute respiratory failure type: with hypoxia Severe sepsis shock status: without septic shock Code(s): A41.9 - Sepsis, unspecified organism Status: Acute Assessment and Plan: On antibiotics per hospitalist. Limited echo 09/27/22 does not show endocarditis. (3) COPD (chronic obstructive pulmonary disease): Qualifiers: COPD type: emphysema Emphysema type: unspecified Qualified Code(s): J43.9 - Emphysema, unspecified Code(s): J44.9 - Chronic obstructive pulmonary disease, unspecified Status: Acute Assessment and Plan: Management as per hospitalist. (4) CHF (congestive heart failure): Code(s): I50.9 - Heart failure, unspecified Status: Acute Assessment and Plan: Clinically she appear to be euvolemic or on dry side. Would hold off on diuretics. Subjective Date/time seen: 09/28/22 07:45 Interval history: She is alert, but not responding appropriately. Exam Const: General: cooperative and comfortable Orientation/consciousness: No oriented to place and No oriented to time Resp: Auscultation: no crackles, no rhonchi and wheezes Cardio: Rate: regular rate Rhythm: regular rhythm Heart sounds: no murmurs Peripheral pulses: dorsalis pedis present Neuro: General: No oriented to place and No oriented to time Extrem: Right lower extremity: no edema Left lower extremity: no edema Objective Data Vital Signs Vital Signs: Vital Signs - 24 hr 09/27/22 08:00 09/27/22 08:59 09/27/22 08:00 Temperature 97.2 F L Pulse Rate 93 68 68 Respiratory Rate 12 12 Blood Pressure 153/85 H Pulse Oximetry 90 90 Oxygen Delivery Room Air 09/27/22 12:00 09/27/22 15:03 09/27/22 16:00 Temperature 98.5 F 98.4 F Pulse Rate 80 77 Respiratory Rate 28 H 28 H Blood Pressure 132/62 127/74 Pulse Oximetry 97 97 98 Oxygen Delivery Room Air 09/27/22 08:00 09/27/22 10:00 09/27/22 12:00 Temperature Pulse Rate 70 80 82 Respiratory Rate Blood Pressure Pulse Oximetry Oxygen Delivery 09/27/22 14:00 09/27/22 16:00 09/27/22 20:00 Temperature 97.9 F Pulse Rate 77 80 67 Respiratory Rate 20 Blood Pressure 155/85 H Pulse Oximetry 97 Oxygen Delivery 09/27/22 20:00 09/27/22 20:00 09/27/22 23:29 Temperature 97.6 F Pulse Rate 68 68 70 Respiratory Rate 20 18 Blood Pressure 146/79 H Pulse Oximetry 97 93 Oxygen Delivery Room Air 09/27/22 23:50 09/28/22 04:00 09/28/22 04:00 Temperature 97.6 F Pulse Rate 76 72 81 Respiratory Rate 16 Blood Pressure 140/79 Pulse Oximetry 94 Oxygen Delivery Intake/Output Intake/Output: Intake & Output 09/25/22 09/26/22 09/27/22 09/28/22 23:59 23:59 23:59 23:59 Intake Total 1000 200 890 0 Output Total 500 500 650 400 Balance 500 -300 240 -400 Meds/Results Medications: Active Medications Generic Name Dose Route Start Last Admin Trade Name Valeria PRN Reason Stop Dose Admin Amiodarone HCl 200 mg 09/26/22 08:00 09/27/22 08:59 Amiodarone Hcl 200 Mg Tablet PO 200 mg DAILY@0800 KIP Administration Amoxicillin/Clavulanate Potassium 1 tablet 09/27/22 09:00 09/27/22 20:36 Amoxicillin/Clavu
[2022-09-28] MEDS: AMOXICILLIN/CLAVULANATE K 500-125 MG TAB 1 TABLET PO ×2 (10:04→21:26)
[2022-09-28] MEDS: ASPIRIN 325 MG TABLET PO (10:04)
[2022-09-28] MEDS: AMIODARONE HCL 200 MG TABLET PO (10:05)
[2022-09-28] MEDS: THERAPEUTIC MULTIVITAMINS/MINERALS TAB (*BKC) 1 TABLET PO (10:27)
[2022-09-28] MEDS: MEGESTROL ACETATE (*CHEMO) ORAL SUSP 40 MG/ML SYR 400 MG PO (10:27)
--- NOTE | 2022-09-28 13:29 | P.PNIM_ITS ---
Progress Note: A&P Assessment and Plan (1) Respiratory failure: Qualifiers: Chronicity: acute Respiratory failure complication: hypoxia Qualified Code(s): J96.01 - Acute respiratory failure with hypoxia Code(s): J96.90 - Respiratory failure, unspecified, unspecified whether with hypoxia or hypercapnia Status: Resolved Assessment and Plan: Appears 2/2 acute CHF exacerbation, acute COPD exacerbation and possible underlying pneumonia. * continue supplemental O2 to keep sats >92%. Wean as tolerated. * ABG- no hypercapnia and hypoxia improved with 5L O2. * Patient has been recently hospitalized and does not appear very mobile. +tachycardia, hypoxia and tachypnea. With patient's renal function and eGFR 19, CTA chest r/o PE is contraindicated. Additionally, with patient's mental status she is unlikely to be able to complete VQ scan. She is on empiric lovenox currently for afib RVR, however, she is not a good candidate for long- term antibiotics. * Likely secondary to aspiration pneumonia and continue empiric antibiotic coverage. * Modified swallow study showed silent aspiration with thin liquids. * On room air with adequate saturations. No s/s respiratory distress. (2) Sepsis: Qualifiers: Acute respiratory failure type: with hypoxia Sepsis acute organ dysfunction status: with acute organ dysfunction Sepsis type: sepsis due to unspecified organism Severe sepsis shock status: without septic shock Code(s): A41.9 - Sepsis, unspecified organism Status: Resolved Assessment and Plan: Patient meets sepsis criteria with RR>20, HR>90, WBC>12, and elevated lactic acid. Likely secondary to respiratory infection and possible bacteremia. * WBC 19 on admission with left shift and no known recent steroid use. WBC downtrending. * CXR without infiltrates or consolidation, however, patient with leukocytosis, hypoxia and tachypnea. * Started empiric broad-spectrum antibiotics d/t recent hospitalization in July and antibiotic use, as well as emperic coverage for aspiration possible aspiration pneumonia. Abx started 09/23/22. Continue x7-10 days. * Lactic acid 2.4 to 1.5 and improved. IV fluids held d/t concern for CHF exacerbation. * 09/23 blood cultures positive gram cocci in both bottles. She is currently on IV Vancomycin which would cover these organisms. Repeat blood cultures tomorrow morning after 48 hours of antibiotics. * 09/25 Initial blood cultures with enterococcus growth in both sets. Repeat blood cultures drawn today * Preliminary blood cultures from 09/25 are negative for growth to date. Initial blood cultures with Enterococcus growth are sensitive to vancomycin. She will need IV vancomycin times a total of 14 days for Enterococcus bacteremia will await midline/PICC placement until repeat blood cultures negative. * Improving. 09/25 blood cultures negative to date. Enterococcus thought to be urinary source, but unclear. TTE obtained and improved mitral regurgitation/mitral valve sclerosis. Aortic valve moderate sclerosis. No mobile thrombus/vegetation reported. Continue Vancomycin. (3) Aspiration pneumonia: Qualifiers: Aspiration pneumonia type: due to regurgitated food Laterality: unspecified laterality Lung location: unspecified part of lung Qualified Code(s): J69.0 - Pneumonitis due to inhalation of food and vomit Code(s): J69.0 - Pneumonitis due to inhalation of food and vomit Status: Acute Assessment and Plan: Presumed aspiration pneumonia given sepsis picture, acute respiratory failure and modified swallow study. * Continue Vancomycin pharmacy to dose, Cef
--- NOTE | 2022-09-28 16:23 | PCSTNOTE ---
Patient in the process of moving rooms when therapist arrived to address Speech Therapy.
--- NOTE | 2022-09-28 16:56 | PC.NURSE ---
This patient, Bridget Alaniz, was received from [imu] on 09/28/22 at 1650. Patient/family oriented to unit policies and routines. Report from Clarisa
[2022-09-28] MEDS: MIRTAZAPINE 7.5 MG TABLET PO (21:26)
[2022-09-29] VITALS (9 sets, daily range): BP systolic 127–160; BP diastolic 74–95; PULSE 54–82; RESP 18–22; TEMP 35.9–37.1; O2SAT 91–99
[2022-09-29 07:08] LABS: Anion Gap 5 mmol/L (8-16); Blood Urea Nitrogen 68 mg/dL (7-17); Calcium 8.2 mg/dL (8.4-10.2); Carbon Dioxide 21 mmol/L (22-30); Chloride 121 mmol/L (98-107); Estimated CRCL calculation 11 ml/min; Estimated Glomerular Filt Rate 20; Glucose 92 mg/dL (65-110); Magnesium 2.2 mg/dL (1.6-2.3); Potassium 4.4 mmol/L (3.4-5.0); Sodium 147 mmol/L (137-145)
--- NOTE | 2022-09-29 07:47 | PM.PNCARD ---
Progress Note: A&P Assessment and Plan (1) Atrial fibrillation with rapid ventricular response: Code(s): I48.91 - Unspecified atrial fibrillation Status: Acute Assessment and Plan: New onset. Probably due to respiratory status and age. [id number] 6. Currently on Lovenox. Given risk of bleeding with anemia, would leave her on aspirin 325 mg daily. On Amiodarone drip and has converted to sinus rhythm currently. Continued for 24 hours then change to PO dosing. Stopped Amiodarone drip and started Amiodarone 200 mg PO daily to maintain sinus rhythm. EKG shows sinus rhythm with QTc that is OK. (2) Sepsis: Qualifiers: Sepsis type: sepsis due to unspecified organism Sepsis acute organ dysfunction status: with acute organ dysfunction Acute respiratory failure type: with hypoxia Severe sepsis shock status: without septic shock Code(s): A41.9 - Sepsis, unspecified organism Status: Resolved Assessment and Plan: On antibiotics per hospitalist. Limited echo 09/27/22 does not show endocarditis. (3) COPD (chronic obstructive pulmonary disease): Qualifiers: COPD type: emphysema Emphysema type: unspecified Qualified Code(s): J43.9 - Emphysema, unspecified Code(s): J44.9 - Chronic obstructive pulmonary disease, unspecified Status: Chronic Assessment and Plan: Management as per hospitalist. (4) CHF (congestive heart failure): Code(s): I50.9 - Heart failure, unspecified Status: Acute Assessment and Plan: Clinically she appear to be euvolemic or on dry side. Would hold off on diuretics. Subjective Date/time seen: 09/29/22 07:47 Interval history: She is sleeping. Exam Const: General: cooperative and comfortable Orientation/consciousness: No oriented to place and No oriented to time Resp: Auscultation: no crackles, no rhonchi and wheezes Cardio: Rate: regular rate Rhythm: regular rhythm Heart sounds: no murmurs Peripheral pulses: dorsalis pedis present Neuro: General: No oriented to place and No oriented to time Extrem: Right lower extremity: no edema Left lower extremity: no edema Objective Data Vital Signs Vital Signs: Vital Signs - 24 hr 09/28/22 08:00 09/28/22 10:05 09/28/22 08:00 Temperature 97.7 F Pulse Rate 78 78 78 Respiratory Rate 22 H Blood Pressure 115/52 L Pulse Oximetry 99 Oxygen Delivery 09/28/22 08:00 09/28/22 12:00 09/28/22 12:00 Temperature 97.5 F L Pulse Rate 75 68 Respiratory Rate 18 Blood Pressure 98/54 L Pulse Oximetry 100 Oxygen Delivery Room Air 09/28/22 16:00 09/28/22 17:08 09/28/22 20:00 Temperature 97.9 F Pulse Rate 75 70 70 Respiratory Rate 16 16 Blood Pressure 153/65 H Pulse Oximetry 98 98 Oxygen Delivery Room Air 09/28/22 20:00 09/28/22 20:00 09/29/22 00:00 Temperature 97.8 F Pulse Rate 84 92 82 Respiratory Rate 20 Blood Pressure 150/77 H Pulse Oximetry 99 Oxygen Delivery 09/29/22 04:00 09/29/22 04:00 Temperature 96.6 F L Pulse Rate 64 68 Respiratory Rate 20 Blood Pressure 127/76 Pulse Oximetry 99 Oxygen Delivery Intake/Output Intake/Output: Intake & Output 09/26/22 09/27/22 09/28/22 09/29/22 23:59 23:59 23:59 23:59 Intake Total 200 1140 380 Output Total 500 650 400 Balance -300 490 -20 Meds/Results Medications: Active Medications Generic Name Dose Route Start Last Admin Trade Name Valeria PRN Reason Stop Dose Admin Amiodarone HCl 200 mg 09/26/22 08:00 09/28/22 10:05 Amiodarone Hcl 200 Mg Tablet PO 200 mg DAILY@0800 KIP Administration Amoxicillin/Clavulanate Potassium 1 tablet 09/27/22 09:00 09/28/22 21:26 Amoxicillin/Clavulanate K 500-125 Mg Tab PO 10/01/22 23:59 1 tablet Q12HR KIP Administration Aspirin 325 mg 09/28/22 08:00 09/28/22 10:04 Aspirin 325 Mg Tablet PO 325 mg DAILY@0800 KIP Administration Vancomycin HCl 1,000 mg in 250 mls @ 250 mls/h
[2022-09-29 09:15] LABS: Hematocrit 33.5 % (37.0-47.0); Hemoglobin 10.2 g/dL (12.0-15.0); Mean Corpuscular HGB Conc 30.4 g/dl (32-36); Mean Corpuscular Hemoglobin 28.9 pg (26-34); Mean Corpuscular Volume 94.9 fl (80-100); Mean Platelet Volume 11.5 fl (7.4-10.4); Platelet Count Result 315 k/mm3 (150-375); Red Blood Count 3.53 M/mm3 (4.2-5.4); Red Cell Distribution Width 14.1 % (11.5-14.5); White Blood Count 10.6 K/mm3 (4.5-10.0)
[2022-09-29] MEDS: AMOXICILLIN/CLAVULANATE K 500-125 MG TAB 1 TABLET PO ×2 (09:41→20:27)
[2022-09-29] MEDS: ASPIRIN 325 MG TABLET PO (09:41)
[2022-09-29] MEDS: THERAPEUTIC MULTIVITAMINS/MINERALS TAB (*BKC) 1 TABLET PO (09:41)
[2022-09-29] MEDS: MEGESTROL ACETATE (*CHEMO) ORAL SUSP 40 MG/ML SYR 400 MG PO (09:42)
[2022-09-29] MEDS: AMIODARONE HCL 200 MG TABLET PO (09:42)
--- NOTE | 2022-09-29 13:25 | PM.IMPN ---
Progress Note: A&P Assessment and Plan (1) Respiratory failure: Qualifiers: Chronicity: acute Respiratory failure complication: hypoxia Qualified Code(s): J96.01 - Acute respiratory failure with hypoxia Code(s): J96.90 - Respiratory failure, unspecified, unspecified whether with hypoxia or hypercapnia Status: Resolved Assessment and Plan: Appears 2/2 acute CHF exacerbation, acute COPD exacerbation and possible underlying pneumonia. continue supplemental O2 to keep sats >92%. Wean as tolerated. ABG- no hypercapnia and hypoxia improved with 5L O2. Patient has been recently hospitalized and does not appear very mobile. +tachycardia, hypoxia and tachypnea. With patient's renal function and eGFR 19, CTA chest r/o PE is contraindicated. Additionally, with patient's mental status she is unlikely to be able to complete VQ scan. She is on empiric lovenox currently for afib RVR, however, she is not a good candidate for long-term antibiotics. Likely secondary to aspiration pneumonia and continue empiric antibiotic coverage. Modified swallow study showed silent aspiration with thin liquids. On room air with adequate saturations. No s/s respiratory distress. (2) Sepsis: Qualifiers: Acute respiratory failure type: with hypoxia Sepsis acute organ dysfunction status: with acute organ dysfunction Sepsis type: sepsis due to unspecified organism Severe sepsis shock status: without septic shock Code(s): A41.9 - Sepsis, unspecified organism Status: Resolved Assessment and Plan: Patient meets sepsis criteria with RR>20, HR>90, WBC>12, and elevated lactic acid. Likely secondary to respiratory infection and possible bacteremia. WBC 19 on admission with left shift and no known recent steroid use. WBC downtrending. CXR without infiltrates or consolidation, however, patient with leukocytosis, hypoxia and tachypnea. Started empiric broad-spectrum antibiotics d/t recent hospitalization in July and antibiotic use, as well as emperic coverage for aspiration possible aspiration pneumonia. Abx started 09/23/22. Continue x7-10 days. Lactic acid 2.4 to 1.5 and improved. IV fluids held d/t concern for CHF exacerbation. 09/23 blood cultures positive gram cocci in both bottles. She is currently on IV Vancomycin which would cover these organisms. Repeat blood cultures tomorrow morning after 48 hours of antibiotics. 09/25 Initial blood cultures with enterococcus growth in both sets. Repeat blood cultures drawn today Preliminary blood cultures from 09/25 are negative for growth to date. Initial blood cultures with Enterococcus growth are sensitive to vancomycin. She will need IV vancomycin times a total of 14 days for Enterococcus bacteremia will await midline/PICC placement until repeat blood cultures negative. Improving. 09/25 blood cultures negative to date. Enterococcus thought to be urinary source, but unclear. TTE obtained and improved mitral regurgitation/mitral valve sclerosis. Aortic valve moderate sclerosis. No mobile thrombus/vegetation reported. Continue Vancomycin. 09/29/2022 PICC line inserted today. Continue vancomycin Possible discharge tomorrow. (3) Aspiration pneumonia: Qualifiers: Aspiration pneumonia type: due to regurgitated food Laterality: unspecified laterality Lung location: unspecified part of lung Qualified Code(s): J69.0 - Pneumonitis due to inhalation of food and vomit Code(s): J69.0 - Pneumonitis due to inhalation of food and vomit Status: Acute Assessment and Plan: Presumed aspiration pneumonia given sepsis picture, acute respiratory failure and modified swallow study. Continue Vancomycin pharmacy to dose, Cefepime pseudomonas dose adjusted for renal function and metronidazole for atypical coverage. Aspiration precautions 08/27 change cefepime and Flagyl to augmentin 875/125 mg p.o. b.i.d. to complete antibiotic course for aspiration pneumonia. Vanc
--- NOTE | 2022-09-29 14:05 | PCSTNOTE ---
Pt not a good candidate for improved swallow function with exercise program in consideration of dementia diagnosis with deteriorating swallow function. Pt unable to complete exercises to improve swallow function. At bedside she is receptive to current modified diet and repeat MBS would not likely demonstrate any changes. For this reason after consult with nsg and nurse practitioner we agreed to discharge at this time. The only other option at this time that the family may consider is having pt NPO to avoid risk for aspiration and aspiration pneumonia.
[2022-09-29] MEDS: CENTRAL LINE FLUSH 10 ML IV PUSH ×2 (14:54→20:27)
[2022-09-29 19:13] LABS: Legionella pneumophila Ag Ur Not Detected (Not Detected)
[2022-09-29] MEDS: MIRTAZAPINE 7.5 MG TABLET PO (20:27)
[2022-09-30] VITALS (9 sets, daily range): BP systolic 147–157; BP diastolic 68–88; PULSE 63–83; RESP 17–26; TEMP 36.3–36.6; O2SAT 98–100
[2022-09-30] MEDS: CENTRAL LINE FLUSH 10 ML IV PUSH ×3 (05:17→21:12)
[2022-09-30 05:24] LABS: Hematocrit 34.6 % (37.0-47.0); Hemoglobin 10.5 g/dL (12.0-15.0); Mean Corpuscular HGB Conc 30.3 g/dl (32-36); Mean Corpuscular Hemoglobin 28.8 pg (26-34); Mean Corpuscular Volume 94.8 fl (80-100); Mean Platelet Volume 11.4 fl (7.4-10.4); Platelet Count Result 249 k/mm3 (150-375); Red Blood Count 3.65 M/mm3 (4.2-5.4); Red Cell Distribution Width 13.8 % (11.5-14.5); White Blood Count 13.5 K/mm3 (4.5-10.0)
--- NOTE | 2022-09-30 05:36 | PC.NURSE ---
Addendum entered by Mamadou Luke RN 09/30/22 05:45: Sepsis target disappeared. Original Note: Sepsis target appeared on pt chart. Attempted to call Dr. Grossman with no answer. Waiting electronic heat seal operator back from doctor. If doctor doesnt respond this RN will pass information on to day shift RN in shift report.
[2022-09-30 05:37] LABS: Alanine Aminotransferase 25 U/L (6-35); Albumin Level 3.2 g/dL (3.5-5.1); Alkaline Phosphatase 43 U/L (38-126); Anion Gap 4 mmol/L (8-16); Aspartate Amino Transferase 36 U/L (14-36); Bilirubin,Total 0.7 mg/dL (0.2-1.3); Blood Urea Nitrogen 60 mg/dL (7-17); Calcium 8.2 mg/dL (8.4-10.2); Carbon Dioxide 22 mmol/L (22-30); Chloride 122 mmol/L (98-107); Estimated CRCL calculation 14 ml/min; Estimated Glomerular Filt Rate 25; Glucose 93 mg/dL (65-110); Potassium 4.9 mmol/L (3.4-5.0); Sodium 148 mmol/L (137-145)
--- NOTE | 2022-09-30 08:56 | ECG_ITS ---
Measurements Intervals [place] Rate: 77 P: 52 SC: 162 QRS: 44 QRSD: 79 T: 60 QT: 376 QTc: 427 Interpretive Statements SINUS RHYTHM WITH FREQUENT SUPRAVENTRICULAR PREMATURE COMPLEXES POSSIBLE PREVIOUS INFERIOR IL NONSPECIFIC T-WAVE ABNORMALITY, CONSIDER ANTERIOR ISCHEMIA COMPARED WITH 09/26/2022 NO SIGNIFICANT CHANGE Electronically Signed On 10-01-2022 7:29:03 [employer] TECHNICIAN by Robin Rosen M.D.
[2022-09-30] MEDS: ASPIRIN 325 MG TABLET PO (09:23)
[2022-09-30] MEDS: MEGESTROL ACETATE (*CHEMO) ORAL SUSP 40 MG/ML SYR 400 MG PO (09:23)
[2022-09-30] MEDS: AMOXICILLIN/CLAVULANATE K 500-125 MG TAB 1 TABLET PO ×2 (09:23→21:11)
[2022-09-30] MEDS: THERAPEUTIC MULTIVITAMINS/MINERALS TAB (*BKC) 1 TABLET PO (09:23)
[2022-09-30] MEDS: AMIODARONE HCL 200 MG TABLET PO (09:23)
--- NOTE | 2022-09-30 11:40 | PM.PNCARD ---
Progress Note: A&P Assessment and Plan (1) Atrial fibrillation with rapid ventricular response: Code(s): I48.91 - Unspecified atrial fibrillation Status: Acute Assessment and Plan: New onset. Probably due to respiratory status and age. [id number]. Currently on Lovenox. Given risk of bleeding with anemia, would leave her on aspirin 325 mg daily. On Amiodarone drip and has converted to sinus rhythm currently. Continued for 24 hours then change to PO dosing. Stopped Amiodarone drip and started Amiodarone 200 mg PO daily to maintain sinus rhythm. EKG shows sinus rhythm with QTc that is OK. Will sign off. Please call with any question. (2) Sepsis: Qualifiers: Sepsis type: sepsis due to unspecified organism Sepsis acute organ dysfunction status: with acute organ dysfunction Acute respiratory failure type: with hypoxia Severe sepsis shock status: without septic shock Code(s): A41.9 - Sepsis, unspecified organism Status: Resolved Assessment and Plan: On antibiotics per hospitalist. Limited echo 09/27/22 does not show endocarditis. (3) COPD (chronic obstructive pulmonary disease): Qualifiers: COPD type: emphysema Emphysema type: unspecified Qualified Code(s): J43.9 - Emphysema, unspecified Code(s): J44.9 - Chronic obstructive pulmonary disease, unspecified Status: Chronic Assessment and Plan: Management as per hospitalist. (4) CHF (congestive heart failure): Code(s): I50.9 - Heart failure, unspecified Status: Acute Assessment and Plan: Clinically she appear to be euvolemic or on dry side. Would hold off on diuretics. Subjective Date/time seen: 09/30/22 11:40 Interval history: She is alert but not answering appropriately. Exam Const: General: cooperative and comfortable Orientation/consciousness: No oriented to place and No oriented to time Resp: Auscultation: no crackles, no rhonchi and wheezes Cardio: Rate: regular rate Rhythm: regular rhythm Heart sounds: no murmurs Peripheral pulses: dorsalis pedis present Neuro: General: No oriented to place and No oriented to time Extrem: Right lower extremity: no edema Left lower extremity: no edema Objective Data Vital Signs Vital Signs: Vital Signs - 24 hr 09/29/22 12:28 09/29/22 12:00 09/29/22 15:46 Temperature 98.8 F 98.5 F Pulse Rate 81 74 70 Respiratory Rate 18 22 H Blood Pressure 130/74 155/91 H Pulse Oximetry 98 98 Oxygen Delivery 09/29/22 16:00 09/29/22 20:00 09/29/22 20:00 Temperature 97.6 F Pulse Rate 69 54 L 54 L Respiratory Rate 21 H 21 H Blood Pressure 160/95 H Pulse Oximetry 91 91 Oxygen Delivery Room Air 09/29/22 20:00 09/30/22 00:00 09/30/22 04:00 Temperature Pulse Rate 71 72 80 Respiratory Rate Blood Pressure Pulse Oximetry Oxygen Delivery 09/30/22 06:00 09/30/22 09:23 09/30/22 08:00 Temperature 97.4 F L Pulse Rate 72 72 68 Respiratory Rate 17 Blood Pressure 147/88 H Pulse Oximetry 100 Oxygen Delivery Intake/Output Intake/Output: Intake & Output 09/27/22 09/28/22 09/29/22 09/30/22 23:59 23:59 23:59 23:59 Intake Total 1140 380 120 240 Output Total 650 400 Balance 490 -20 120 240 Meds/Results Medications: Active Medications Generic Name Dose Route Start Last Admin Trade Name Freq PRN Reason Stop Dose Admin Amiodarone HCl 200 mg 09/26/22 08:00 09/30/22 09:23 Amiodarone Hcl 200 Mg Tablet PO 200 mg DAILY@0800 [facility] Administration Amoxicillin/Clavulanate Potassium 1 tablet 09/27/22 09:00 09/30/22 09:23 Amoxicillin/Clavulanate K 500-125 Mg Tab PO 10/01/22 23:59 1 tablet Q12HR KIP Administration Aspirin 325 mg 09/28/22 08:00 09/30/22 09:23 Aspirin 325 Mg Tablet PO 325 mg DAILY@0800 [facility] Administration Vancomycin HCl 1,000 mg in 250 mls @ 250 mls/hr 09/30/22 12:00 Vancomycin 1,000 Mg/D5w 250 Ml IVPB Q48H [facility] Ipratro
--- NOTE | 2022-09-30 13:22 | PM.DS ---
DS: Admitting Diagnosis Discharge Date 09/30/2022 Admitting Diagnosis Respiratory failure, bacteremia DS: Discharge Diagnosis Discharge Diagnosis (1) Respiratory failure: Qualifiers: Chronicity: acute Respiratory failure complication: hypoxia Qualified Code(s): J96.01 - Acute respiratory failure with hypoxia Code(s): J96.90 - Respiratory failure, unspecified, unspecified whether with hypoxia or hypercapnia Status: Resolved (2) Sepsis: Qualifiers: Acute respiratory failure type: with hypoxia Sepsis acute organ dysfunction status: with acute organ dysfunction Sepsis type: sepsis due to unspecified organism Severe sepsis shock status: without septic shock Code(s): A41.9 - Sepsis, unspecified organism Status: Resolved (3) Aspiration pneumonia: Qualifiers: Aspiration pneumonia type: due to regurgitated food Laterality: unspecified laterality Lung location: unspecified part of lung Qualified Code(s): J69.0 - Pneumonitis due to inhalation of food and vomit Code(s): J69.0 - Pneumonitis due to inhalation of food and vomit Status: Acute (4) Atrial fibrillation with rapid ventricular response: Code(s): I48.91 - Unspecified atrial fibrillation Status: Acute (5) COPD (chronic obstructive pulmonary disease): Qualifiers: COPD type: emphysema Emphysema type: unspecified Qualified Code(s): J43.9 - Emphysema, unspecified Code(s): J44.9 - Chronic obstructive pulmonary disease, unspecified Status: Chronic (6) CHF (congestive heart failure): Qualifiers: Heart failure chronicity: acute on chronic Heart failure type: combined systolic and diastolic Qualified Code(s): I50.43 - Acute on chronic combined systolic (congestive) and diastolic (congestive) heart failure Code(s): I50.9 - Heart failure, unspecified Status: Acute (7) Elevated troponin: Code(s): R77.8 - Other specified abnormalities of plasma proteins Status: Resolved (8) Acute kidney injury superimposed on CKD: Code(s): N17.9 - Acute kidney failure, unspecified; N18.9 - Chronic kidney disease, unspecified Status: Acute (9) Dementia: Qualifiers: Alzheimer's disease onset: unspecified onset Dementia behavioral or psychological symptom: without behavioral, psychotic, or mood disturbance or anxiety Dementia severity: severe Dementia type: Alzheimer's Qualified Code(s): G30.9 - Alzheimer's disease, unspecified; F02.C0 - Dementia in other diseases classified elsewhere, severe, without behavioral disturbance, psychotic disturbance, mood disturbance, and anxiety Code(s): F03.90 - Unspecified dementia, unspecified severity, without behavioral disturbance, psychotic disturbance, mood disturbance, and anxiety Status: Chronic (10) Colonic mass: Onset Date: ~07/2021 Code(s): K63.89 - Other specified diseases of intestine Status: Chronic (11) Bacteremia due to Enterococcus: Code(s): R78.81 - Bacteremia; B95.2 - Enterococcus as the cause of diseases classified elsewhere Status: Acute (12) Hypernatremia: Code(s): E87.0 - Hyperosmolality and hypernatremia Status: Acute Plan CODE STATUS: DNR/DNI, okay for IV medications, antibiotics and NIPPV. Disposition: Inpatient. Med/surg with telemetry status. 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 Patient on 4 L nasal cannula home. She was satting in the 80s on arrival to the ED and was placed on 15 L on non-rebreather which improved her saturation to over 90%. Patient's baseline a and O x1. Patient is a poor historian. L
[2022-09-30 15:07] LABS: Vancomycin Trough 14.8 ug/mL (10.0-20.0)
[2022-09-30] MEDS: NEOMYCIN/POLYMYXIN/BACITRACIN OINTMENT PACKET 1 PACKET (17:47)
[2022-09-30] MEDS: MIRTAZAPINE 7.5 MG TABLET PO (21:11)
[2022-10-01] VITALS: PULSE 76; RESP 20; TEMP 36.1; O2SAT 100
[2022-10-01] MEDS: CENTRAL LINE FLUSH 10 ML IV PUSH ×2 (06:06→13:24)
[2022-10-01 06:28] LABS: Estimated CRCL calculation 14 ml/min; Estimated Glomerular Filt Rate 24
[2022-10-01 06:45] VITALS: BP 130/82; PULSE 81; RESP 16; TEMP 35.7; O2SAT 92
--- NOTE | 2022-10-01 09:06 | PM.DS ---
DS: Admitting Diagnosis Discharge Date 10/01/2022 Admitting Diagnosis Acute respiratory failure, bacteremia DS: Discharge Diagnosis Discharge Diagnosis (1) Respiratory failure: Qualifiers: Chronicity: acute Respiratory failure complication: hypoxia Qualified Code(s): J96.01 - Acute respiratory failure with hypoxia Code(s): J96.90 - Respiratory failure, unspecified, unspecified whether with hypoxia or hypercapnia Status: Resolved (2) Sepsis: Qualifiers: Acute respiratory failure type: with hypoxia Sepsis acute organ dysfunction status: with acute organ dysfunction Sepsis type: sepsis due to unspecified organism Severe sepsis shock status: without septic shock Code(s): A41.9 - Sepsis, unspecified organism Status: Resolved (3) Aspiration pneumonia: Qualifiers: Aspiration pneumonia type: due to regurgitated food Laterality: unspecified laterality Lung location: unspecified part of lung Qualified Code(s): J69.0 - Pneumonitis due to inhalation of food and vomit Code(s): J69.0 - Pneumonitis due to inhalation of food and vomit Status: Acute (4) Atrial fibrillation with rapid ventricular response: Code(s): I48.91 - Unspecified atrial fibrillation Status: Acute (5) COPD (chronic obstructive pulmonary disease): Qualifiers: COPD type: emphysema Emphysema type: unspecified Qualified Code(s): J43.9 - Emphysema, unspecified Code(s): J44.9 - Chronic obstructive pulmonary disease, unspecified Status: Chronic (6) CHF (congestive heart failure): Qualifiers: Heart failure chronicity: acute on chronic Heart failure type: combined systolic and diastolic Qualified Code(s): I50.43 - Acute on chronic combined systolic (congestive) and diastolic (congestive) heart failure Code(s): I50.9 - Heart failure, unspecified Status: Acute (7) Elevated troponin: Code(s): R77.8 - Other specified abnormalities of plasma proteins Status: Resolved (8) Acute kidney injury superimposed on CKD: Code(s): N17.9 - Acute kidney failure, unspecified; N18.9 - Chronic kidney disease, unspecified Status: Acute (9) Dementia: Qualifiers: Alzheimer's disease onset: unspecified onset Dementia behavioral or psychological symptom: without behavioral, psychotic, or mood disturbance or anxiety Dementia severity: severe Dementia type: Alzheimer's Qualified Code(s): G30.9 - Alzheimer's disease, unspecified; F02.C0 - Dementia in other diseases classified elsewhere, severe, without behavioral disturbance, psychotic disturbance, mood disturbance, and anxiety Code(s): F03.90 - Unspecified dementia, unspecified severity, without behavioral disturbance, psychotic disturbance, mood disturbance, and anxiety Status: Chronic (10) Colonic mass: Onset Date: ~07/2021 Code(s): K63.89 - Other specified diseases of intestine Status: Chronic (11) Bacteremia due to Enterococcus: Code(s): R78.81 - Bacteremia; B95.2 - Enterococcus as the cause of diseases classified elsewhere Status: Acute (12) Hypernatremia: Code(s): E87.0 - Hyperosmolality and hypernatremia Status: Acute Plan CODE STATUS: DNR/DNI, okay for IV medications, antibiotics and NIPPV. Disposition: Inpatient. Med/surg with telemetry status. Discharge destination- return to SNF DS: Summary Hospital Course Reason for hospitalization: Acute respiratory distress Hospital Course: 82-year-old woman a history of dementia, diastolic and systolic heart failure with EF of 45 %, moderate to severe mitral valve regurg, COPD and hypertension presents to the ER with difficulty breathing.? Patient on 4 L nasal cannula home.? She was satting in the 80s on arrival to the ED and was placed on 15 L on non-rebreather which improved her saturation to over 90%.? Patient's baseline a and O x1.? Patient is a poor histor
[2022-10-01 09:27] LABS: Anion Gap 5 mmol/L (8-16); Blood Urea Nitrogen 67 mg/dL (7-17); Calcium 8.4 mg/dL (8.4-10.2); Carbon Dioxide 21 mmol/L (22-30); Chloride 122 mmol/L (98-107); Estimated CRCL calculation 13 ml/min; Estimated Glomerular Filt Rate 24; Glucose 100 mg/dL (65-110); Potassium 5.2 mmol/L (3.4-5.0); Sodium 148 mmol/L (137-145)
[2022-10-01 10:40] VITALS: PULSE 84
[2022-10-01] MEDS: ASPIRIN 325 MG TABLET PO (10:40)
[2022-10-01] MEDS: AMOXICILLIN/CLAVULANATE K 500-125 MG TAB 1 TABLET PO (10:40)
[2022-10-01] MEDS: MEGESTROL ACETATE (*CHEMO) ORAL SUSP 40 MG/ML SYR 400 MG PO (10:40)
[2022-10-01] MEDS: AMIODARONE HCL 200 MG TABLET PO (10:40)
[2022-10-01] MEDS: THERAPEUTIC MULTIVITAMINS/MINERALS TAB (*BKC) 1 TABLET PO (10:40)
[2022-10-01 11:27] LABS: Hematocrit 32.9 % (37.0-47.0); Mean Corpuscular HGB Conc 30.4 g/dl (32-36); Mean Corpuscular Hemoglobin 28.6 pg (26-34); Mean Platelet Volume 11.5 fl (7.4-10.4); Platelet Count Result 271 k/mm3 (150-375); White Blood Count 16.8 K/mm3 (4.5-10.0)
[2022-10-01 12:00] VITALS: PULSE 71
[2022-10-01 14:00] VITALS: BP 139/84; PULSE 65; RESP 20; TEMP 35.7; O2SAT 94
== END 2022-10-01 17:14 | DRG 871 ==
LOC: ANHED 04:01 → ANHIMU 09:04 → ANH3MEDSUR 09-30 13:50 → ANHIMU 10-04 11:48
PROVIDERS: Nurse Practitioner Family; Admitting Provider Internal Medicine; Emergency Provider Emergency Medicine; PCP Internal Medicine; Visit Provider Internal Medicine Critical Care Medicine
DX: A41.9 Sepsis, unspecified organism (principal); J18.9 Pneumonia, unspecified organism; J69.0 Pneumonitis due to inhalation of food and vomit; I21.A1 Myocardial infarction type 2; I50.43 Acute on chronic combined systolic (congestive) and diastolic (congestive) heart failure; J96.01 Acute respiratory failure with hypoxia; N17.9 Acute kidney failure, unspecified; E87.0 Hyperosmolality and hypernatremia; I13.0 Hypertensive heart and chronic kidney disease with heart failure and stage 1 through stage 4 chronic kidney disease, or unspecified chronic kidney disease; C18.9 Malignant neoplasm of colon, unspecified; Z20.822 Contact with and (suspected) exposure to COVID-19; I48.91 Unspecified atrial fibrillation; J43.9 Emphysema, unspecified; N18.9 Chronic kidney disease, unspecified; G30.9 Alzheimer's disease, unspecified; F02.80 Dementia in other diseases classified elsewhere, unspecified severity, without behavioral disturbance, psychotic disturbance, mood disturbance, and anxiety; B95.2 Enterococcus as the cause of diseases classified elsewhere; I34.0 Nonrheumatic mitral (valve) insufficiency; D64.9 Anemia, unspecified; Z86.73 Personal history of transient ischemic attack (TIA), and cerebral infarction without residual deficits; Z87.891 Personal history of nicotine dependence
CPT/HCPCS: 36415; 36569; 36600; 51701; 71045; 71250; 74176; 80048; 80053; 80202; 81001; 82274; 82565; 82805; 82948; 83605; 83690; 83735; 83880; 84100; 84443; 84484; 85025; 85027; 85610; 85730; 87040; 87077; 87081; 87086; 87186; 87449; 87636; 87899; 92526; 92610; 92611; 93005; 93308; 94640; 96365; 96372; 96375; 99285; A9270; C1751; J0131; J0282; J0692; J1650; J1940; J2920; J3370; J3475; J7030; J7070; J7512

== ENCOUNTER 2022-10-01 18:28 | Emergency (ER) | payer OTHER, SELFPAY ==
[2022-10-01] VITALS (21 sets, daily range): BP systolic 106–131; BP diastolic 52–91; PULSE 61–88; RESP 17–26; TEMP 36.8; O2SAT 93–99
--- NOTE | ~2022-10-01 | XR_ITS ---
XR chest 1V portable 10/01/2022 19:24 Indication: Hypoxia Procedure: AP portable chest Comparison: Comparison to multiple prior studies sequentially, with oldest reviewed study dated 10/2021. Findings: Heart size normal. Central venous catheter tip in the SVC. No pneumothorax. No pleural effu samuel. There are patchy bilateral infiltrates which are not significantly changed from prior examinati on. There is emphysema. The right upper lobe mass seen on the recent CT examination is not well appre ciated on chest x-ray. Impression: 1: Patchy bilateral airspace disease, consistent with pneumonia, superimposed on emphysema. Reviewed, dictated and finalized at location A. STITCH COLLAR SETTER Impression: 1: Patchy bilateral airspace disease, consistent with pneumonia, superimposed o n emphysema.
--- NOTE | 2022-10-01 18:56 | ECG_ITS ---
Measurements Intervals [place] Rate: 79 P: 74 WI: 172 QRS: 54 QRSD: 86 T: 109 QT: 396 QTc: 456 Interpretive Statements SINUS RHYTHM WITH FREQUENT SUPRAVENTRICULAR PREMATURE COMPLEXES POSSIBLE INFERIOR MYOCARDIAL INFARCTION , PROBABLY OLD [30 ms Q WAVE IN II/aVF] ABNORMAL RHYTHM ECG COMPARED TO ECG 09/30/2022 11:11:24 NO SIGNIFICANT CHANGES Electronically Signed On 10-02-2022 8:32:29 FLAT KNITTER by Robin Rosen M.D.
--- NOTE | 2022-10-01 19:00 | ED.SOB ---
HPI - SOB/Dyspnea General Chief Complaint: Shortness of Breath/Dyspnea Stated Complaint: low o2 sats at nh Time Seen by Provider: 10/01/22 18:46 History of Present Illness HPI Narrative: Patient is an 82-year-old female with a history of dementia, hypertension, CKD, hyperlipidemia, COPD on 4 L O2 baseline presenting with possible hypoxia. Patient was actually just discharged this morning with a PICC line for ongoing vancomycin related to pneumonia. Patient was discharged back to her SNF and was then noted to be saturating 75% on 2 L nasal cannula. EMS was called and found her to be saturating 96% on room air. On arrival here, patient is saturating 98 to 99% on 2 L. Patient is A&O x1 at baseline so further history is limited secondary to this. Related Data Home Medications Medication Instructions Recorded Confirmed albuterol 90 mcg/actuation aerosol 180 mcg inhalation Q4H PRN 08/13/22 09/23/22 inhaler Shortness Of Breath ergocalciferol (vitamin D2) 1,250 1,250 mcg PO WEEKLY 08/13/22 09/23/22 mcg (50,000 unit) capsule ipratropium 0.5 mg-albuterol 3 mg 3 ml inhalation Q4H PRN Shortness 08/13/22 09/23/22 (2.5 mg base)/3 mL nebulization Of Breath soln megestrol 400 mg/10 mL (40 mg/mL) 400 mg PO DAILY 08/13/22 09/23/22 oral suspension mirtazapine 15 mg tablet 15 mg PO DAILY 08/13/22 09/23/22 multivitamin with iron 1 tablet PO DAILY 08/13/22 09/23/22 Allergies Allergy/AdvReac Type Severity Reaction Status Date / Time lidocaine Allergy Unknown Unknown Verified 08/12/22 22:05 procaine Allergy Unknown Unknown Verified 08/12/22 22:05 Review of Systems Review of Systems: ROS unobtainable: Yes unobtainable due to mental status PMFSH Past Medical History Medical History Anemia Carotid stenosis CHF (congestive heart failure) 08/13/22 Echo: EF 40-45%, diastolic dysfunction (E/e' 26), mod LAE, mod MAC, mod-severe MR. CKD (chronic kidney disease) Colonic mass (~07/2021) COPD (chronic obstructive pulmonary disease) Dementia Depression History of stroke (Unknown) Hypertension (Unknown) Tobacco dependence (Unknown) Surgical History Surgical History Hx of cataract surgery Family History Family History Mother Diabetes mellitus Social History Social History Smoking status: Former smoker Tobacco type: cigarettes Alcohol intake: never Substance use: never Substance use type: does not use Spiritual care concerns: No Exam Narrative: GENERAL: Frail elderly female laying in bed in no acute distress HEAD: Normocephalic, atraumatic. EYES: PERRLA and EOMI. ENT: Nares clear, no rhinorrhea or epistaxis. Mucous membranes moist. NECK: Supple. CHEST: Clear to auscultation. No respiratory distress. HEART: Regular rate and rhythm. No murmur heard. Normal peripheral pulses. ABDOMEN: Soft, nontender, nondistended, normal active bowel sounds. EXTREMITIES: Normal range of motion. No edema. SKIN: Warm, dry, no rash. NEURO: No focal deficits. Alert and oriented x1. PSYCH: Normal mood and affect. Course Vital Signs Vital signs: Vital Signs Temperature 98.2 F 10/01/22 18:32 Pulse Rate 88 10/01/22 18:32 Respiratory Rate 20 10/01/22 18:32 Blood Pressure 131/91 H 10/01/22 18:32 Pulse Oximetry 99 10/01/22 18:32 Temperature 97.9 F 10/02/22 02:47 Pulse Rate 97 10/02/22 02:47 Respiratory Rate 16 10/02/22 02:47 Blood Pressure 132/95 H 10/02/22 01:31 Pulse Oximetry 92 10/02/22 03:01 Oxygen Delivery Room Air 10/01/22 18:59 MDM - SOB/Dyspnea MDM Narrative Medical decision making narrative: Patient is an 82-year-old female presenting with an episode of possible hypoxia. Here, patient is saturating 98 to 99% on 2 L. EMS also states that all of her
--- NOTE | 2022-10-01 19:24 | PC.NURSE ---
Report received from RG Diaz. Assumed care of patient at this time.
--- NOTE | 2022-10-01 21:34 | PC.NURSE ---
Called report to Diaz, patients caregiver at [facility].
[2022-10-02] VITALS (10 sets, daily range): BP systolic 132; BP diastolic 95; PULSE 96–97; RESP 16–17; TEMP 36.6; O2SAT 92–100
== END 2022-10-02 05:43 ==
PROVIDERS: Emergency Provider Emergency Medicine; PCP Internal Medicine
DX: J69.0 Pneumonitis due to inhalation of food and vomit (principal); F03.90 Unspecified dementia, unspecified severity, without behavioral disturbance, psychotic disturbance, mood disturbance, and anxiety; I13.0 Hypertensive heart and chronic kidney disease with heart failure and stage 1 through stage 4 chronic kidney disease, or unspecified chronic kidney disease; N18.9 Chronic kidney disease, unspecified; I50.9 Heart failure, unspecified; J44.9 Chronic obstructive pulmonary disease, unspecified; Z86.73 Personal history of transient ischemic attack (TIA), and cerebral infarction without residual deficits; I65.29 Occlusion and stenosis of unspecified carotid artery; Z86.2 Personal history of diseases of the blood and blood-forming organs and certain disorders involving the immune mechanism; Z99.81 Dependence on supplemental oxygen; R94.31 Abnormal electrocardiogram [ECG] [EKG]
CPT/HCPCS: 71045; 93005; 99283

== ENCOUNTER 2022-10-08 23:11 | Emergency (ER) | payer OTHER, SELFPAY ==
--- NOTE | ~2022-10-08 | XR_ITS ---
EXAMINATION: XR chest PICC line INDICATION: PICC position assessment TECHNIQUE: Portable AP chest at 0038 hours COMPARISON: 10/01/2022 FINDINGS: A left upper extremity PICC ends with its tip in the proximal superior vena cava. The lungs are hyperinflated. There are minimal airspace opacities of the right upper lung zone. No pleural eff usion or pneumothorax. The cardiomediastinal silhouette is normal. IMPRESSION: 1. Left upper extremity PICC ending with its tip in the proximal superior vena cava. 2. Minimal airspace opacities of the right upper lobe, consistent with pneumonia. Reviewed, dictated and finalized at location A. IVE KILN CHARCOAL BURNER IMPRESSION: 1. Left upper extremity PICC ending with its tip in the proximal superior vena cava. 2. Minimal airspace opacities of the right upper lobe, consistent with pneumoni a.
[2022-10-08 23:16] VITALS: BP 148/86; PULSE 75; RESP 22; O2SAT 100
[2022-10-09] VITALS (8 sets, daily range): BP systolic 103–164; BP diastolic 70–93; PULSE 66–77; RESP 16–24; TEMP 36.7; O2SAT 93–99
--- NOTE | 2022-10-09 | ECG_ITS ---
Measurements Intervals [place] Rate: 75 P: 88 MT: 193 QRS: 39 QRSD: 90 T: 83 QT: 392 QTc: 440 Interpretive Statements SINUS RHYTHM NONSPECIFIC T-WAVE ABNORMALITY COMPARED TO ECG 10/01/2022 18:38:59 T-WAVE ABNORMALITY NOW PRESENT Electronically Signed On 10-09-2022 8:41:36 [employer] by Gillian Fields M.D.
--- NOTE | 2022-10-09 00:16 | ED.GENADULT ---
HPI - General Adult General Chief complaint: Recheck/Abnormal Lab/Rx Stated complaint: ABNORMAL LABS NA 159 Time Seen by Provider: 10/08/22 23:36 History of Present Illness HPI narrative: this is an 82-year-old female sent to the ED for abnormal labs. She had a sodium of 159. Patient is in a care home is currently being treated with long-term antibiotics for some sort of lung infection. The patient herself is A&O times 0 due to dementia. She is unable to answer any questions about who she is or why she is here. Related Data Home Medications Medication Instructions Recorded Confirmed albuterol 90 mcg/actuation aerosol 180 mcg inhalation Q4H PRN 08/13/22 09/23/22 inhaler Shortness Of Breath ergocalciferol (vitamin D2) 1,250 1,250 mcg PO WEEKLY 08/13/22 09/23/22 mcg (50,000 unit) capsule ipratropium 0.5 mg-albuterol 3 mg 3 ml inhalation Q4H PRN Shortness 08/13/22 09/23/22 (2.5 mg base)/3 mL nebulization Of Breath soln megestrol 400 mg/10 mL (40 mg/mL) 400 mg PO DAILY 08/13/22 09/23/22 oral suspension mirtazapine 15 mg tablet 15 mg PO DAILY 08/13/22 09/23/22 multivitamin with iron 1 tablet PO DAILY 08/13/22 09/23/22 Allergies Allergy/AdvReac Type Severity Reaction Status Date / Time lidocaine Allergy Unknown Unknown Verified 08/12/22 22:05 procaine Allergy Unknown Unknown Verified 08/12/22 22:05 Review of Systems Review of Systems: ROS unobtainable: Yes unobtainable due to medical condition [facility] Past Medical History Medical History Anemia Carotid stenosis CHF (congestive heart failure) 08/13/22 Echo: EF 40-45%, diastolic dysfunction (E/e' 26), mod LAE, mod MAC, mod-severe MR. CKD (chronic kidney disease) Colonic mass (~07/2021) COPD (chronic obstructive pulmonary disease) Dementia Depression History of stroke (Unknown) Hypertension (Unknown) Tobacco dependence (Unknown) Surgical History Surgical History Hx of cataract surgery Family History Family History Mother Diabetes mellitus Social History Social History Smoking status: Former smoker Tobacco type: cigarettes Alcohol intake: never Substance use: never Substance use type: does not use Spiritual care concerns: No Exam Narrative: APPEARANCE: Patient is old and frail Head: atraumatic. EYES: EOMI, NOSE: Atraumatic NECK: Trachea midline RESPIRATORY: No increased rate of breathing clear to auscultation bilaterally CARDIOVASCULAR: RRR, ABDOMINAL: Non-distended MUSCULOSKELETAl: No obvious deformities NEURO: Alert. Moving 4/4 extremities SKIN:: Warm, dry. Normal color PSYCHIATRIC: Normal affect Course Vital Signs Vital signs: Vital Signs Pulse Rate 75 10/08/22 23:16 Respiratory Rate 22 H 10/08/22 23:16 Blood Pressure 148/86 H 10/08/22 23:16 Pulse Oximetry 100 10/08/22 23:16 Oxygen Delivery Room Air 10/08/22 23:16 Temperature 98.0 F 10/09/22 02:53 Pulse Rate 75 10/08/22 23:16 Respiratory Rate 24 H 10/09/22 01:15 Blood Pressure 148/86 H 10/08/22 23:16 Pulse Oximetry 100 10/08/22 23:16 Oxygen Delivery Room Air 10/08/22 23:16 Medical Decision Making MDM Narrative Medical decision making narrative: This is an 82-year-old female sent to the ED for abnormal lab work. Specifically hypernatremia at 159. The patient is A&O times 0 and not able to give me any information in regards to her symptoms. a broad metabolic workup has been ordered. EKG interpretation: Rhythm [sinus], Rate 75, [place] -[normal], TN -[normal], QRS [narrow], QTC [normal], T waves -[negative for concerning inversions], ST Segments - [Negative for concerning elevations] Final interpretations: [Normal Sinus Rhythm] chest x-ray. unchanged from previous. PICC line is in proper loca
[2022-10-09 00:23] LABS: Basophils Absolute Auto 0.1 K/mm3 (0.0-0.1); Basophils Percent Auto 0.8 % (0.2-1.2); Eosinophils Absolute Auto 0.2 K/mm3 (0-0.3); Eosinophils Percent Auto 2.5 % (0-4.4); Hematocrit 29.3 % (37.0-47.0); Hemoglobin 8.6 g/dL (12.0-15.0); Immature Granulocyte Absolute 0.09 K/mm3 (0.00-0.031); Immature Granulocyte Percent A 0.9 % (0-0.5); Lymphocytes Percent Auto 10.5 % (18.3-44.2); Mean Corpuscular HGB Conc 29.4 g/dl (32-36); Mean Corpuscular Volume 98.7 fl (80-100); Mean Platelet Volume 11.6 fl (7.4-10.4); Monocytes Absolute Auto 0.5 K/mm3 (0.1-0.6); Neutrophils Absolute Auto 7.6 K/mm3 (1.3-6.7); Neutrophils Percent Auto 80.3 % (45.5-73.1); Platelet Count Result 204 k/mm3 (150-375); Red Blood Count 2.97 M/mm3 (4.2-5.4); Red Cell Distribution Width 16.9 % (11.5-14.5); White Blood Count 9.5 K/mm3 (4.5-10.0)
[2022-10-09 00:31] LABS: Alanine Aminotransferase 26 U/L (6-35); Albumin Level 3.1 g/dL (3.5-5.1); Alkaline Phosphatase 52 U/L (38-126); Anion Gap 7 mmol/L (8-16); Aspartate Amino Transferase 27 U/L (14-36); Bilirubin,Total 0.3 mg/dL (0.2-1.3); Blood Urea Nitrogen 41 mg/dL (7-17); Calcium 8.5 mg/dL (8.4-10.2); Carbon Dioxide 17 mmol/L (22-30); Chloride 124 mmol/L (98-107); Estimated CRCL calculation 15 ml/min; Estimated Glomerular Filt Rate 19; Glucose 87 mg/dL (65-110); Lipase 110 U/L (23-300); Magnesium 1.9 mg/dL (1.6-2.3); Potassium 4.7 mmol/L (3.4-5.0); Sodium 148 mmol/L (137-145)
[2022-10-09 00:32] LABS: Lactic Acid Reflex 0.9 mmol/L (0.7-2.0)
[2022-10-09 00:33] LABS: INR 1.2; Prothrombin Time 14.9 Seconds (11.1-14.7)
[2022-10-09 00:34] LABS: Partial Thromboplastin Time 28.5 SECONDS (22.3-36.8)
[2022-10-09 00:40] LABS: NT Pro B Type Natriuretic Pept 10900 pg/mL (5-100)
[2022-10-09 00:43] LABS: Troponin I 0.023 ng/mL (0.000-0.034)
[2022-10-09 01:01] LABS: Add Urine Microscopic? YES; Appearance Urine Clear (Clear); Bilirubin Urine Negative (Negative); Blood Urine Negative (Negative); Color Urine Light Yellow (Yellow); Glucose Urine UA Negative (Negative); Ketones Urine Negative (Negative); Leukocyte Esterase Ur Negative LEU/UL (Negative); Nitrate Urine Negative (Negative); Protein Urine Trace mg/dL (Negative); Specific Grav Ur >= 1.030 (1.001-1.035); Urobilinogen Urine 0.2 mg/dL (<2.0)
[2022-10-09 01:07] LABS: Bacteria Urine Trace /hpf; Mucus Urine Rare /lpf; RBC Urine 0-2 /hpf (0-2); Squamous Epithelial Cell Urine Occasional /hpf (Few); WBC Urine 0-3 /hpf
--- NOTE | 2022-10-09 03:29 | PC.NURSE ---
Report given to RG Roberts.
--- NOTE | 2022-10-09 03:49 | PC.NURSE ---
called [facility] to request transport. ETA 0900 called [facility] to request transport.
--- NOTE | 2022-10-09 04:09 | PC.NURSE ---
spoke to Diaz, staff from [facility] at this time. Updated on patient condition and discharge as well as transportation back to facility.
--- NOTE | 2022-10-09 04:34 | PC.NURSE ---
[facility] here.
--- NOTE | 2022-10-09 04:37 | PC.NURSE ---
cancelled [facility]
== END 2022-10-09 04:43 ==
PROVIDERS: Emergency Provider Emergency Medicine; PCP Internal Medicine
DX: J69.0 Pneumonitis due to inhalation of food and vomit (principal); E86.0 Dehydration; F03.90 Unspecified dementia, unspecified severity, without behavioral disturbance, psychotic disturbance, mood disturbance, and anxiety; I50.9 Heart failure, unspecified; I65.29 Occlusion and stenosis of unspecified carotid artery; I13.0 Hypertensive heart and chronic kidney disease with heart failure and stage 1 through stage 4 chronic kidney disease, or unspecified chronic kidney disease; N18.9 Chronic kidney disease, unspecified; J44.9 Chronic obstructive pulmonary disease, unspecified; Z95.828 Presence of other vascular implants and grafts; Z87.891 Personal history of nicotine dependence; R94.31 Abnormal electrocardiogram [ECG] [EKG]
CPT/HCPCS: 36415; 80053; 81001; 83605; 83690; 83735; 83880; 84100; 84484; 85025; 85610; 85730; 93005; 99284